=== PATIENT | female | born 1950 | race Caucasian/White ===

== ENCOUNTER 2020-08-04 10:33 | Outpatient (REF) | payer MEDICARE, OTHER, SELFPAY | END 2020-08-04 10:34 | disposition home or self-care (01) | LOC: HO.LAB 10:33 | PROVIDERS: PCP Internal Medicine; Visit Provider Internal Medicine | DX: Z20.828 Contact with and (suspected) exposure to other viral communicable diseases (principal) | CPT/HCPCS: C9803; U0003 ==

== ENCOUNTER → 2020-09-15 10:57 | Outpatient (BNVA) | payer MEDICARE, OTHER, SELFPAY | PROVIDERS: PCP Internal Medicine; Visit Provider Internal Medicine | DX: R07.2 Precordial pain (principal); I25.10 Atherosclerotic heart disease of native coronary artery without angina pectoris; I10 Essential (primary) hypertension; E78.5 Hyperlipidemia, unspecified | CPT/HCPCS: 93005; 99212 ==

== ENCOUNTER → 2020-10-17 08:17 | Outpatient (REF) | payer MEDICARE, OTHER, SELFPAY ==
--- NOTE | ~2020-10-17 | NM_ITS ---
Myocardial perfusion study Indication: The cardial chest pain to evaluate for myocardial ischemia Technique: The patient was brought in for a Lexiscan perfusion study on 10/17/2020. Patient performed low-level exercise and was injected 0.4 mg of Lexiscan intravenously. Within a minute of injection, 25 mCi of sestamibi was given intravenously. Images were obtained using the SPECT gamma camera interlaced with the gating device. Images were obtained in supine position. Resting perfusion study was performed on 10/20/2020. Patient was administered 25 mCi of sestamibi intravenously at rest. Images were then obtained in supine position. Images obtained with and without CT attenuation. Total DLP 60 mGy-cm. Images were processed with the software and compared side to side in short axis, horizontal long axis and vertical long axis views. Findings: Both stress and rest perfusion imaging, more so rest perfusion imaging a suboptimal due to intense subdiaphragmatic uptake in the bowel loop interfering with myocardial uptake. The stress perfusion study showed non attenuated images show mildly reduced uptake in the inferoapical wall of the LV myocardium as well as apex of the LV myocardium. Attenuation corrected images show minimal thinning in the distal anterior wall otherwise normal uptake in the entire myocardium.. The gated study shows normal LV systolic function with calculated LVEF of greater than 70 %. LV cavity is normal in size. The gated study shows normal systolic wall thickening and contraction of segments. Resting study shows non attenuated images show severely reduced uptake in the inferoapical and mildly reduced uptake in the rest of the inferior wall of the LV myocardium.. Gating at rest reveals normal systolic wall motion with ejection fraction at 62%. The findings are consistent with likely normal myocardial perfusion. NM/NM essence perf SPECT rest & str Impression: 1. Myocardial perfusion imaging study shows likely normal myocardial 2. Gated LVEF is 62% 3. Transient ischemic dilatation not present EKG is nondiagnostic for ischemia
--- NOTE | 2020-10-17 08:21 | CA_ITS ---
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 Mildly reduced LV systolic function with regional wall motion abnormality with grade 1 diastolic dysfunction 2. Normal cardiac valvular Doppler 3. Normal RV systolic pressure 4. No pericardial effusion Findings Left Ventricle Normal left ventricular cavity size. There is normal left ventricular wall thickness. The left ventricular systolic function is low normal. The visually estimated ejection fraction is between 50-55%. Spectral Doppler is indicative of an impaired relaxation filling pattern. E/E prime ratio is <8, consistent with normal filling pressures. Evidence suggests grade I (mild) diastolic dysfunction. Wall Motion Rest Echo Findings The mid inferior and mid inferoseptal segments are hypokinetic. The basal inferior, basal inferoseptal, and basal inferolateral segments are akinetic. All other scored wall segments showed normal motion. Right Ventricle Normal right ventricular cavity size and systolic function. Atria Both atria are normal in size. There is lipomatous hypertrophy of the interatrial septum. There is a mobile atrial septum noted. There is no evidence of interatrial shunt. Aortic Valve The aortic valve structure and function is likely normal. There is no aortic valve stenosis. There is no aortic valve regurgitation. Mitral Valve There is mild anterior and posterior mitral leaflet thickening. There is trace mitral valve regurgitation. There is no mitral valve stenosis. Pulmonic Valve The pulmonic valve was not well visualized. Tricuspid Valve Likely normal tricuspid valve structure and function. There is trace tricuspid valve regurgitation. The right ventricular systolic pressure is normal. The right ventricular systolic pressure is 16 mmHg. Normal right atrial pressure. There is no evidence of pulmonary hypertension. Great Vessels All visible segments of the aorta are normal in size. The pulmonary artery was not well visualized. Venous The inferior vena cava is normal in size and collapses greater than 50% with inspiration. Pericardium/Pleural There is no evidence of pericardial effusion. Prior Study Comparison Changes noted compared to prior study dated: 08/08/2019. LV systolic function is marginally reduce with new wall motion abnormality noted, not reported on prior study Measurements 2D Linear Measurements IVSd: 1.08 0.6-0.9/0.6-1.0 cm LVIDd: 4.10 3.9-5.3/4.2-5.9 cm LVIDd Index: 2.37 2.4-3.2/2.2-3.1 cm/m2 LVIDs: 2.99 2.0-3.6 cm LVPWd: 1.00 0.7-1.1 cm Ao Root: 3.10 2.1-3.5 cm LA Diam: 3.00 2.7-3.8/3.0-4.0 cm LAIDs Index: 1.73 1.5-2.3 cm/m2 LV Mass: 173.79 67-162/88-224 g LV Mass Index: 100.46 43-95/49-115 g/m2 LVOT Diam: 2.00 3.0+(-)1.3 cm 2D Volumes LA Vol: 16.20 2D Systolic Function EF 4C: 52.70 >55% EF 2C: 55.20 >55% EF BiP: 54.60 >55% Mitral Valve MV Pk E: 0.55 MV PK A: 0.96 MV Decel Time: 111.00 E/A: 0.60 E'Lateral: 8.49 E'Medial: 5.66 E/E' Med: 9.70 E/E' Lat: 6.50 PHT: 33.00 MVA PHT: 6.67 Decel Sargent: 4.94 Aortic Valve AoV Pk Vin: 1.31 AoV Mn Vin: 0.83 AoV VTI: 0.27 AoV Pk Grad: 7.00 Aov Mn Grad: 3.00 AMI Cont.VTI: 2.25 LVOT LVOT Pk Vin: 0.87 LVOT Mn Vin: 0.56 LVOT VTI: 0.20 LVOT Pk Grad: 3.00 LVOT Mn Grad: 1.00 LVOT Diam: 2.00 LVOT Area: 3.14 Diastolic Function MV Pk E: 0.55 MV Pk A: 0.96 E/A: 0.60 E'Medial: 5.66 E/E' Med: 9.70 E' Laterial: 8.49 E/E' Lat: 6.50 Tricuspid Valve TR Pk Vin: 1.79 TR Pk Grad: 13.00 RA Press: 3.00 RVSP: 16.00 Great Vessels Aorta Ao Root-2D: 3.10 2.0-3.7 cm Ao Asc: 2.90 2.1-3.4 cm Ao Arch: 2.40 Updated in Other Vendor System with Status of Final Javier Daniels MD electronically signed on 10/18/2020 1:48:01 PM with status of Final
--- NOTE | 2020-10-17 08:21 | CA_ITS ---
Acquisition Time: 2020-10-17 10:25:29 Total Exercise Time: 00:02:00 Test Indications: cp Medications: see chart Protocol: LEXISCAN Max HR: 150 BPM 100% of Pred: 150 BPM Max BP: 140/070 mmHG Max Work Load: 1.6 METS Pharmacological stress test using Lexiscan while walking on treadmill for 2 min at 1 mph. Pt became dizzy, SOB from Lexiscan. Sx reversed with Aminophyline 75 mg IV. Pt developed R hand tremmors that resolved in recovery period. EKG without any arrhythmias, non-diagnostic for ischemia. Nuclear images to follow. Normotensive response to test. Test reviewed with Dr. Oconnell Referred By: Ruddy Oconnell Overread By:
== END ==
LOC: HO.CARD 08:17
PROVIDERS: Visit Provider Internal Medicine
DX: R07.2 Precordial pain (principal); I25.119 Atherosclerotic heart disease of native coronary artery with unspecified angina pectoris
CPT/HCPCS: 78452; 93017; 93306; A9500; J0280; J2785

== ENCOUNTER → 2020-10-22 12:36 | Outpatient (BNVA) | payer MEDICARE, OTHER, SELFPAY | PROVIDERS: PCP Internal Medicine; Visit Provider Internal Medicine | DX: I25.10 Atherosclerotic heart disease of native coronary artery without angina pectoris (principal); I10 Essential (primary) hypertension; R07.2 Precordial pain; E78.5 Hyperlipidemia, unspecified | CPT/HCPCS: 99212 ==

== ENCOUNTER → 2021-01-22 11:00 | Outpatient (BNVA) | payer MEDICARE, OTHER, SELFPAY | PROVIDERS: PCP Internal Medicine; Visit Provider Internal Medicine | DX: I25.10 Atherosclerotic heart disease of native coronary artery without angina pectoris (principal); I10 Essential (primary) hypertension; E78.5 Hyperlipidemia, unspecified | CPT/HCPCS: 99212 ==

== ENCOUNTER 2021-03-17 10:58 | Outpatient (REF) | payer MEDICARE, OTHER, SELFPAY | END 2021-03-17 10:59 | disposition home or self-care (01) | LOC: HO.LAB 10:58 | PROVIDERS: PCP Internal Medicine; Visit Provider Internal Medicine | DX: Z20.822 Contact with and (suspected) exposure to COVID-19 (principal) | CPT/HCPCS: C9803; U0003; U0005 ==

== ENCOUNTER → 2021-07-30 10:27 | Outpatient (BNVA) | payer MEDICARE, OTHER, SELFPAY | PROVIDERS: PCP Internal Medicine; Visit Provider Internal Medicine | DX: I25.10 Atherosclerotic heart disease of native coronary artery without angina pectoris (principal); I10 Essential (primary) hypertension; E78.5 Hyperlipidemia, unspecified; G47.33 Obstructive sleep apnea (adult) (pediatric) | CPT/HCPCS: 99212 ==

== ENCOUNTER 2021-08-24 10:10 | Outpatient (REF) | payer MEDICARE, OTHER, SELFPAY | END 2021-08-24 10:11 | disposition home or self-care (01) | LOC: HO.WFDLDS 10:10 | PROVIDERS: Visit Provider Internal Medicine | DX: Z20.822 Contact with and (suspected) exposure to COVID-19 (principal) | CPT/HCPCS: C9803; U0003; U0005 ==

== ENCOUNTER 2021-09-22 11:27 | Outpatient (REF) | payer MEDICARE, OTHER, SELFPAY ==
--- NOTE | ~2021-09-22 | CT_ITS ---
EXAMINATION: CT LUMBAR SPINE WITHOUT CONTRAST CLINICAL INFORMATION: Status post spinal cord stimulator. COMPARISON: None. TECHNIQUE: 2 mm thin axial and reformatted 2 mm thin sagittal and coronal images of the lumbar spine were obtained. This CT examination was performed using dose optimization techniques as appropriate, variously including the following: *Automated exposure control *Adjustment of mA and/or kV according to patient size (this includes techniques or standardized protocols for targeted exams where dose is matched to indication/reason for exam; i.e. extremities or head) *Use of iterative reconstruction technique DLP; 390 mGy-cm FINDINGS: On sagittal reconstructed images, there is grade 1 retrolisthesis L2 over L3 and grade 1 anterolisthesis L3 over L4 and L4 over L5. Mild loss of disc at L4-L5 and moderate loss of disc height at L2-L3 disc levels with mild ventral spondylosis at the L1-L2 and L2-L3 disc levels. The vertebral heights is normal. There is mild dextroscoliosis mid/upper lumbar spine. At L1-L2 disc level, there is no evidence of disc bulge, herniation or spinal stenosis. At L2-L3 disc level, there is grade 1 retrolisthesis L2 over L3 with mild diffuse pseudo disc bulge but no spinal canal stenosis. The neural foramina are mildly narrowed bilaterally. At L3-L4 disc level, there is laminectomy with a capacious thecal sac. The neural foramina are patent. There is no spinal canal stenosis. At L4-L5 disc level there, there is listhesis with endplate sclerosis and minimal bulge but no spinal canal stenosis. There is moderate left neural foraminal narrowing. At L5-S1 disc level, there is no significant disc bulge, herniation or spinal canal stenosis. There is mild narrowing of the right neural foramina. The left neural foramina is patent. The paravertebral soft tissues are normal. There is moderate bilateral facet joint arthropathy L5-S1, L4-L5, L3-L4 and L2-L3 disc levels. CT/CT lumbar spine wo con IMPRESSION: Dextroscoliosis lumbar spine with listhesis as described above. There is L3-L4 laminectomy with a capacious thecal sac. There are endplate changes with diffuse bulge L4-L5 disc level without spinal canal stenosis. Significant bilateral facet joint arthropathy and hypertrophy is seen at L2-L3 through L5-S1 disc levels. There is no spinal canal stenosis.
--- NOTE | ~2021-09-22 | US_ITS ---
EXAMINATION: US EXTRACRANIAL CAROTID DUPLEX, BILATERAL CLINICAL INFORMATION: Atherosclerotic cardiovascular disease. Hypertension. Hyperlipidemia. COMPARISON: None TECHNIQUE: Real-time ultrasound and Doppler techniques (integrating B-mode 2-D vascular images, Doppler spectral analysis and color-flow Doppler imaging) were utilized to interrogate the extracranial carotid arteries, the vertebral arteries and proximal subclavian arteries bilaterally. The degree of stenosis is determined by criteria similar to NASCET. FINDINGS: Right Side: 1. There is no visualized atherosclerotic plaque seen in the bifurcation/proximal ICA region. 2. The common carotid artery PSV proximally is 108 cm/s and distally 96 cm/s. 3. The proximal internal carotid artery velocities are 80 cm/s systolic and 14 cm/s diastolic. 4. The proximal external carotid artery PSV is 90 cm/s. 5. The vertebral artery shows antegrade flow. 6. The subclavian artery waveforms are normal. Left Side: 1. There is no visualized atherosclerotic plaque seen in the bifurcation/proximal ICA region. 2. The common carotid artery PSV proximally is 92 cm/s and distally 77 cm/s. 3. The proximal internal carotid artery velocities are 80 cm/s systolic and 27 cm/s diastolic. 4. The proximal external carotid artery PSV is 84 cm/s. 5. The vertebral artery shows antegrade flow. 6. The subclavian artery waveforms are normal. There is elevation of the mid internal carotid artery peak systolic velocity however no plaque or true turbulence is identified in this appears be related to tortuosity. US/US carotid duplex BI IMPRESSION: 1. RIGHT: Normal right internal carotid artery without atherosclerotic plaque or hemodynamically significant stenosis. 2. LEFT: Minimal, non-hemodynamically significant stenosis of the proximal left internal carotid artery corresponding to a 0-49% stenosis by velocity criteria.
== END 2021-09-22 11:28 | disposition home or self-care (01) ==
LOC: HO.US 11:27
PROVIDERS: Visit Provider Internal Medicine
DX: I65.23 Occlusion and stenosis of bilateral carotid arteries (principal); Z96.82 Presence of neurostimulator
CPT/HCPCS: 72131; 93880

== ENCOUNTER → 2022-02-01 09:59 | Outpatient (BNVA) | payer MEDICARE, OTHER, SELFPAY ==
--- NOTE | 2022-04-05 13:09 | P.CONTMS_ITS ---
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 Substance History: cocaine 40 yrs ago past smoker Meds/Allergies Meds Home Medications Medication Instructions Recorded Confirmed Type aspirin 81 mg tablet,delayed 81 mg PO DAILY 09/15/20 02/01/22 History release cholecalciferol (vitamin D3) 50 50 mcg PO DAILY 09/15/20 02/01/22 History mcg (2,000 unit) capsule mirtazapine 15 mg tablet 15 mg PO BEDTIME 09/15/20 02/01/22 History multivitamin 1 tab PO DAILY 09/15/20 02/01/22 History nitroglycerin 0.4 mg sublingual 0.4 mg sublingual Q5M PRN 09/15/20 02/01/22 History tablet omeprazole 40 mg capsule,delayed 40 mg PO DAILY 09/15/20 02/01/22 History release oxycodone-acetaminophen 5 mg-325 1 tab PO QID PRN 09/15/20 02/01/22 History mg tablet peppermint oil 50 mg mg PO 09/15/20 02/01/22 History capsule,delayed release alprazolam 0.25 mg tablet 0.125 mg PO DAILY PRN 10/22/20 02/01/22 History lisinopril 10 mg tablet 10 mg PO DAILY 01/22/21 02/01/22 History omeprazole 40 mg capsule,delayed 40 mg PO DAILY 07/30/21 02/01/22 History release Allergies Allergies Allergy/AdvReac Type Severity Reaction Status Date / Time No Known Allergies Allergy Verified 02/01/22 10:02 [No Known Allergies*] Assessment & Plan Assessment & Plan (1) Depression, major, severe recurrence: Status: Acute Code(s): F33.2 - Major depressive disorder, recurrent severe without psychotic features Plan The patient is a 72-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 Jenni rwals and multiple combinations of antidepressant trials The patients current quality of life is minimal her PHQ-9 is 23 I spent minutes with the patient and/or on the patient floor today, greater than?50% of which was spent counseling/coordinating care.
== END ==
PROVIDERS: PCP Internal Medicine; Visit Provider Internal Medicine
DX: I25.10 Atherosclerotic heart disease of native coronary artery without angina pectoris (principal); I10 Essential (primary) hypertension; E78.5 Hyperlipidemia, unspecified; G47.33 Obstructive sleep apnea (adult) (pediatric); Z79.82 Long term (current) use of aspirin; Z79.899 Other long term (current) drug therapy
CPT/HCPCS: 93005; 99212

== ENCOUNTER 2022-06-04 10:15 | Outpatient (REF) | payer MEDICARE, OTHER, SELFPAY ==
--- NOTE | ~2022-06-04 | XR_ITS ---
EXAMINATION: XR HIP, RIGHT CLINICAL INFORMATION: Joint pain COMPARISON: None TECHNIQUE: Two views of the right hip. FINDINGS: The right hip joint space is maintained normal. No bony erosive changes, loose body seen. There is a small calcification along the greater trochanter likely calcific bursitis. No aggressive lytic or sclerotic process seen. No visible acute fracture, dislocation or subluxation seen. XR/XR hip RT min 2V IMPRESSION: No acute fracture or dislocation. Calcific bursitis right hip.
== END 2022-06-04 10:16 | disposition home or self-care (01) ==
LOC: HO.XRAY 10:15
PROVIDERS: Visit Provider Internal Medicine
DX: M25.551 Pain in right hip (principal); M53.3 Sacrococcygeal disorders, not elsewhere classified
CPT/HCPCS: 73502

== ENCOUNTER 2022-06-25 10:00 | Outpatient (RCR) | payer MEDICARE, OTHER, SELFPAY ==
--- NOTE | 2022-04-30 14:02 | W.PM.TMSCONS ---
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 Meds/Allergies Meds Home Medications Medication Instructions Recorded Confirmed Type aspirin 81 mg tablet,delayed 81 mg PO DAILY 09/15/20 02/01/22 History release cholecalciferol (vitamin D3) 50 50 mcg PO DAILY 09/15/20 02/01/22 History mcg (2,000 unit) capsule mirtazapine 15 mg tablet 15 mg PO BEDTIME 09/15/20 02/01/22 History multivitamin 1 tab PO DAILY 09/15/20 02/01/22 History nitroglycerin 0.4 mg sublingual 0.4 mg sublingual Q5M PRN 09/15/20 02/01/22 History tablet omeprazole 40 mg capsule,delayed 40 mg PO DAILY 09/15/20 02/01/22 History release oxycodone-acetaminophen 5 mg-325 1 tab PO QID PRN 09/15/20 02/01/22 History mg tablet peppermint oil 50 mg mg PO 09/15/20 02/01/22 History capsule,delayed release alprazolam 0.25 mg tablet 0.125 mg PO DAILY PRN 10/22/20 02/01/22 History lisinopril 10 mg tablet 10 mg PO DAILY 01/22/21 02/01/22 History omeprazole 40 mg capsule,delayed 40 mg PO DAILY 07/30/21 02/01/22 History release Allergies Allergies Allergy/AdvReac Type Severity Reaction Status Date / Time No Known Allergies Allergy Verified 02/01/22 10:02 [No Known Allergies*] Assessment & Plan I spent minutes with the patient and/or on the patient floor today, greater than?50% of which was spent counseling/coordinating care.
--- NOTE | 2022-05-05 23:47 | HO.TMSDAILY2 ---
TMS Daily Progress Note Daily TMS Progress Note Date of Service: 05/07/22 Week #: 1 Treatment #(09-20): 2 PHQ-9 Pre-Treatment (09-17): 21 PHQ-9 Most Recent (09-17): 21 Reviewed: TMS Tech Note Reviewed Verification: I have reviewed the TMS General Store Manager Note and agree with the contents. The patient remains a candidate to continue TMS treatment per protocol. Assessment and Plan (1) Depression, major, severe recurrence: Status: Acute Plan Patient aware that there is some wrist his spinal stimulator she has been able to turn it off at the beginning of treatment and turned on after treatment over. She is willing to take risk and technicians at the company did state that spinal stimulator has been used with TMS in this manner but they cannot in [place] nor say anything further. Patient is willing to take the risk and mapping was successfully completed TMS treatment 1
--- NOTE | 2022-05-07 12:02 | HO.TMSDAILY2 ---
TMS Daily Progress Note Daily TMS Progress Note Date of Service: 05/06/22 Week #: 1 Treatment #(09-20): 4 PHQ-9 Pre-Treatment (09-17): 21 PHQ-9 Most Recent (09-17): 21 Reviewed: TMS Tech Note Reviewed Verification: I have reviewed the TMS Commissions Specialist Note and agree with the contents. The patient remains a candidate to continue TMS treatment per protocol. Assessment and Plan (1) Depression, major, severe recurrence: Status: Acute Plan pt tolerating tx cont plan
--- NOTE | 2022-05-07 16:52 | HO.TMSDAILY2 ---
TMS Daily Progress Note Daily TMS Progress Note Date of Service: 05/07/22 Week #: 1 Treatment #(09-20): 4 PHQ-9 Pre-Treatment (09-17): 21 PHQ-9 Most Recent (09-17): 21 Reviewed: TMS Tech Note Reviewed Verification: I have reviewed the TMS Gridcap Machine Operator Note and agree with the contents. The patient remains a candidate to continue TMS treatment per protocol. Assessment and Plan (1) Depression, major, severe recurrence: Status: Acute Plan continue TMS
--- NOTE | 2022-05-10 17:41 | HO.TMSDAILY2 ---
TMS Daily Progress Note Daily TMS Progress Note Date of Service: 05/10/22 Week #: 2 Treatment #(09-20): 6 PHQ-9 Pre-Treatment (09-17): 26 PHQ-9 Most Recent (09-17): 24 Reviewed: TMS Tech Note Reviewed Verification: I have reviewed the TMS Railroad Brake Repairer Note and agree with the contents. The patient remains a candidate to continue TMS treatment per protocol. Assessment and Plan (1) Depression, major, severe recurrence: Status: Acute Plan pt seen change in settings tolerated no tremor or motor stimulation
--- NOTE | 2022-05-11 21:56 | P.PNPS_ITS ---
TMS Daily Progress Note Daily TMS Progress Note Date of Service: 05/11/22 Week #: 2 Treatment #(09-20): 7 PHQ-9 Pre-Treatment (09-17): 26 PHQ-9 Most Recent (09-17): 24 Reviewed: TMS Tech Note Reviewed Verification: I have reviewed the TMS Mending Carrier Note and agree with the contents. The patient remains a candidate to continue TMS treatment per protocol.
--- NOTE | 2022-05-12 22:01 | P.PNPS_ITS ---
TMS Daily Progress Note Daily TMS Progress Note Date of Service: 05/12/22 Week #: 2 Treatment #(09-20): 8 PHQ-9 Pre-Treatment (09-17): 26 PHQ-9 Most Recent (09-17): 24 Reviewed: TMS Tech Note Reviewed Verification: I have reviewed the TMS Network Operations Specialist Note and agree with the contents. The patient remains a candidate to continue TMS treatment per protocol.tolerating tx spinal stimulator has not been problematic
--- NOTE | 2022-05-13 21:58 | P.PNPS_ITS ---
TMS Daily Progress Note Daily TMS Progress Note Date of Service: 05/13/22 Week #: 2 Treatment #(09-20): 9 PHQ-9 Pre-Treatment (09-17): 26 PHQ-9 Most Recent (09-17): 24 Reviewed: TMS Tech Note Reviewed Verification: I have reviewed the TMS Technical Services Librarian Note and agree with the contents. The patient remains a candidate to continue TMS treatment per protocol. Patient tolerating treatment well no problems with spinal stimulator
--- NOTE | 2022-05-14 11:56 | P.CONTMS_ITS ---
History of Present Illness General Data Date of Service: 04/22/2022 Reason for consult: Evaluation for treatment resistant depression TMS Requesting provider: Jorje La History of Present Illness The patient is a 72-year-old female . Patient has had some benefit from ongoing therapy with Dr. Jenni rawls with a history of recurrent depression, irritability chronic anxiety that has been treatment resistant. The patient has failed multiple trials including Seroquel Depakote Wellbutrin sertraline, Rexulti mirtazapine either with inadequate response or periods of increased anxiety. Her episode of depression has now lasted a number of years. Other factors include chronic pain from diffuse spinal problems and the patient does have a spinal stimulator. 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 Patient has had some degree of chronic interpersonal discord and reactivity chronic self-esteem issues Substance History: None Trauma History: neg Meds/Allergies Meds Home Medications Medication Instructions Recorded Confirmed Type aspirin 81 mg tablet,delayed 81 mg PO DAILY 09/15/20 02/01/22 History release cholecalciferol (vitamin D3) 50 50 mcg PO DAILY 09/15/20 02/01/22 History mcg (2,000 unit) capsule mirtazapine 15 mg tablet 15 mg PO BEDTIME 09/15/20 02/01/22 History multivitamin 1 tab PO DAILY 09/15/20 02/01/22 History nitroglycerin 0.4 mg sublingual 0.4 mg sublingual Q5M PRN 09/15/20 02/01/22 History tablet omeprazole 40 mg capsule,delayed 40 mg PO DAILY 09/15/20 02/01/22 History release oxycodone-acetaminophen 5 mg-325 1 tab PO QID PRN 09/15/20 02/01/22 History mg tablet peppermint oil 50 mg mg PO 09/15/20 02/01/22 History capsule,delayed release alprazolam 0.25 mg tablet 0.125 mg PO DAILY PRN 10/22/20 02/01/22 History lisinopril 10 mg tablet 10 mg PO DAILY 01/22/21 02/01/22 History omeprazole 40 mg capsule,delayed 40 mg PO DAILY 07/30/21 02/01/22 History release Narrative: Past history of agitation on sertraline Allergies Allergies Allergy/AdvReac Type Severity Reaction Status Date / Time No Known Allergies Allergy Verified 02/01/22 10:02 [No Known Allergies*] Mental Status Exam Mental Status Exam Narrative: Mental Status Exam Narrative: Appearance: Casually dressed cooperative Behavior: Appropriate psychomotor: Speech: Clear goal-directed Thought proccess logical Thought content: Hopelessness helplessness periods of despondency ruminating Mood: Depressed Affect: Constricted appropriate SI:denies active SI. It is where she feels she might be better off HI:denies VH/AH:none Delusions: None Insight/judgment: Patient is asking for help she is able to take in information regarding TMS and her rare of potential risks benefits Memory/cog: Assessment & Plan Assessment & Plan (1) Depression, major, severe recurrence: Status: Acute Code(s): F33.2 - Major depressive disorder, recurrent severe without psychotic features Plan Patient has a history of recurrent depression minimal quality of life recurrent depressed mood irritability despair. She has not responded to multiple medication trials. Calls placed to manage fracture of spinal stimulator spoke with 10 department who states that the stimulator can be used in MRI the stimulator can be turned off during treatment and has been used with other TMS patients. Patient and are aware there is no guarantee that the device will not be affected but they feel any potential risk is worth it and in the literature this has been done without difficulty noted. Patient was able to do an impedance check and also is able to turn off the device prior to each treatment patient and are in agreement and understanding there is no guarantee how the spinal stimulator may react but the potential risk which should be medicated by turning off the stimulator and being approved abuse an MRI is worth the potential benefit given the patient's limited quality of life There are no other medical devices or issues that would preclude doing TMS. No history brain surgery implanted cochlear device pacemaker metallic fragments or other contraindication I spent ___60___ minutes with the patient and/or on the patient floor today, greater than?50% of which was spent counseling/coordinating care. Patient educated on: diagnosis, TMS, therapeutic strategies and other Informed Consent: understands
--- NOTE | 2022-05-17 22:35 | HO.TMSDAILY2 ---
TMS Daily Progress Note Daily TMS Progress Note Date of Service: 05/17/22 Week #: 3 Treatment #(09-20): 11 PHQ-9 Pre-Treatment (09-17): 26 PHQ-9 Most Recent (09-17): 24 Reviewed: TMS Tech Note Reviewed Verification: I have reviewed the TMS Microcomputer Support Specialist Note and agree with the contents. The patient remains a candidate to continue TMS treatment per protocol.
--- NOTE | 2022-05-21 23:36 | HO.TMSDAILY2 ---
TMS Daily Progress Note Daily TMS Progress Note Date of Service: 05/19/22 Week #: 3 Treatment #(09-20): 13 PHQ-9 Pre-Treatment (09-17): 26 PHQ-9 Most Recent (09-17): 24 Reviewed: TMS Tech Note Reviewed Verification: I have reviewed the TMS Dairy Quality Assurance Officer Note and agree with the contents. The patient remains a candidate to continue TMS treatment per protocol.
--- NOTE | 2022-05-21 23:41 | P.PNPS_ITS ---
TMS Daily Progress Note Daily TMS Progress Note Date of Service: 05/20/22 Week #: 3 Treatment #(09-20): 14 PHQ-9 Pre-Treatment (09-17): 26 PHQ-9 Most Recent (09-17): 24 Reviewed: TMS Tech Note Reviewed Verification: I have reviewed the TMS Founder And Ceo Note and agree with the contents. The patient remains a candidate to continue TMS treatment per protocol.
--- NOTE | 2022-05-24 23:34 | HO.TMSDAILY2 ---
TMS Daily Progress Note Daily TMS Progress Note Date of Service: 05/24/22 Week #: 3 Treatment #(09-20): 12 PHQ-9 Pre-Treatment (09-17): 26 PHQ-9 Most Recent (09-17): 24 Reviewed: TMS Tech Note Reviewed Verification: I have reviewed the TMS Gun Numberer Note and agree with the contents. The patient remains a candidate to continue TMS treatment per protocol.
--- NOTE | 2022-05-24 23:37 | HO.TMSDAILY2 ---
TMS Daily Progress Note Daily TMS Progress Note Date of Service: 05/18/22 Week #: 3 Treatment #(09-20): 12 PHQ-9 Pre-Treatment (09-17): 26 PHQ-9 Most Recent (09-17): 24 Reviewed: TMS Tech Note Reviewed Verification: I have reviewed the TMS Assistant Technician Note and agree with the contents. The patient remains a candidate to continue TMS treatment per protocol.
--- NOTE | 2022-05-24 23:39 | HO.TMSDAILY2 ---
TMS Daily Progress Note Daily TMS Progress Note Date of Service: 05/18/22 Week #: 3 Treatment #(09-20): 13 PHQ-9 Pre-Treatment (09-17): 26 PHQ-9 Most Recent (09-17): 24 Reviewed: TMS Tech Note Reviewed Verification: I have reviewed the TMS Senior Genetic Counselor Note and agree with the contents. The patient remains a candidate to continue TMS treatment per protocol.
--- NOTE | 2022-05-24 23:40 | P.PNPS_ITS ---
TMS Daily Progress Note Daily TMS Progress Note Date of Service: 05/19/22 Week #: 3 Treatment #(09-20): 14 PHQ-9 Pre-Treatment (09-17): 26 PHQ-9 Most Recent (09-17): 24 Reviewed: TMS Tech Note Reviewed Verification: I have reviewed the TMS Vice President Of Contracts Note and agree with the contents. The patient remains a candidate to continue TMS treatment per protocol.
--- NOTE | 2022-05-24 23:43 | HO.TMSDAILY2 ---
TMS Daily Progress Note Daily TMS Progress Note Date of Service: 05/24/22 Week #: 4 Treatment #(09-20): 16 PHQ-9 Pre-Treatment (09-17): 26 PHQ-9 Most Recent (09-17): 24 Reviewed: TMS Tech Note Reviewed Verification: I have reviewed the TMS Weather Analyst Note and agree with the contents. The patient remains a candidate to continue TMS treatment per protocol.
--- NOTE | 2022-05-25 18:15 | HO.TMSDAILY2 ---
TMS Daily Progress Note Daily TMS Progress Note Date of Service: 05/25/22 Week #: 4 Treatment #(09-20): 17 PHQ-9 Pre-Treatment (09-17): 26 PHQ-9 Most Recent (09-17): 24 Reviewed: TMS Tech Note Reviewed Verification: I have reviewed the TMS Observer Electrical Prospecting Note and agree with the contents. The patient remains a candidate to continue TMS treatment per protocol. Assessment and Plan (1) Depression, major, severe recurrence: Status: Acute (2) JACOB (obstructive sleep apnea): Status: Acute Plan pt seen discussed cbt for insomnia handouts given
--- NOTE | 2022-06-07 16:24 | P.PNPS_ITS ---
TMS Daily Progress Note Daily TMS Progress Note Date of Service: 05/26/22 Week #: 4 Treatment #(09-20): 18 PHQ-9 Pre-Treatment (09-17): 26 PHQ-9 Most Recent (09-17): 17 Reviewed: TMS Tech Note Reviewed Verification: I have reviewed the TMS Chief Enterprise Architect Note and agree with the contents. The patient remains a candidate to continue TMS treatment per protocol.
--- NOTE | 2022-06-07 16:26 | P.PNPS_ITS ---
TMS Daily Progress Note Daily TMS Progress Note Date of Service: 05/28/22 Week #: 4 Treatment #(09-20): 20 PHQ-9 Pre-Treatment (09-17): 26 PHQ-9 Most Recent (09-17): 17 Reviewed: TMS Tech Note Reviewed Verification: I have reviewed the TMS Panel Builder Note and agree with the contents. The patient remains a candidate to continue TMS treatment per protocol.
--- NOTE | 2022-06-07 16:26 | P.PNPS_ITS ---
TMS Daily Progress Note Daily TMS Progress Note Date of Service: 05/27/22 Week #: 4 Treatment #(09-20): 19 PHQ-9 Pre-Treatment (09-17): 26 PHQ-9 Most Recent (09-17): 17 Reviewed: TMS Tech Note Reviewed Verification: I have reviewed the TMS Locomotive Observer Note and agree with the contents. The patient remains a candidate to continue TMS treatment per protocol.
--- NOTE | 2022-06-07 16:27 | P.PNPS_ITS ---
TMS Daily Progress Note Daily TMS Progress Note Date of Service: 06/01/22 Week #: 5 Treatment #(09-20): 21 PHQ-9 Pre-Treatment (09-17): 26 PHQ-9 Most Recent (09-17): 12 Reviewed: TMS Tech Note Reviewed Verification: I have reviewed the TMS Corrections Sergeant Note and agree with the contents. The patient remains a candidate to continue TMS treatment per protocol.
--- NOTE | 2022-06-07 16:28 | P.PNPS_ITS ---
TMS Daily Progress Note Daily TMS Progress Note Date of Service: 06/03/22 Week #: 5 Treatment #(09-20): 23 PHQ-9 Pre-Treatment (09-17): 26 PHQ-9 Most Recent (09-17): 12 Reviewed: TMS Tech Note Reviewed Verification: I have reviewed the TMS Licensed Dispensing Optician Note and agree with the contents. The patient remains a candidate to continue TMS treatment per protocol.
--- NOTE | 2022-06-07 16:28 | P.PNPS_ITS ---
TMS Daily Progress Note Daily TMS Progress Note Date of Service: 06/02/22 Week #: 5 Treatment #(09-20): 22 PHQ-9 Pre-Treatment (09-17): 26 PHQ-9 Most Recent (09-17): 12 Reviewed: TMS Tech Note Reviewed Verification: I have reviewed the TMS Global Consumer Sector Vice President Note and agree with the contents. The patient remains a candidate to continue TMS treatment per protocol.
--- NOTE | 2022-06-07 22:16 | P.PNPS_ITS ---
TMS Daily Progress Note Daily TMS Progress Note Date of Service: 06/07/22 Week #: 5 Treatment #(09-20): 25 PHQ-9 Pre-Treatment (09-17): 26 PHQ-9 Most Recent (09-17): 12 Reviewed: TMS Tech Note Reviewed Verification: I have reviewed the TMS Electro Mechanical Assembler Note and agree with the contents. The patient remains a candidate to continue TMS treatment per protocol.
--- NOTE | 2022-06-08 14:35 | P.PNPS_ITS ---
TMS Daily Progress Note Daily TMS Progress Note Date of Service: 06/08/22 Week #: 6 Treatment #(09-20): 26 PHQ-9 Pre-Treatment (09-17): 26 PHQ-9 Most Recent (09-17): 12 Reviewed: TMS Tech Note Reviewed Verification: I have reviewed the TMS Animal Pathologist Note and agree with the contents. The patient remains a candidate to continue TMS treatment per protocol.
--- NOTE | 2022-06-11 22:01 | P.PNPS_ITS ---
TMS Daily Progress Note Daily TMS Progress Note Date of Service: 06/09/22 Week #: 6 Treatment #(09-20): 27 PHQ-9 Pre-Treatment (09-17): 26 PHQ-9 Most Recent (09-17): 12 Reviewed: TMS Tech Note Reviewed Verification: I have reviewed the TMS Hand Shaker Note and agree with the contents. The patient remains a candidate to continue TMS treatment per protocol.
--- NOTE | 2022-06-11 22:02 | P.PNPS_ITS ---
TMS Daily Progress Note Daily TMS Progress Note Date of Service: 06/10/22 Week #: 6 Treatment #(09-20): 28 PHQ-9 Pre-Treatment (09-17): 26 PHQ-9 Most Recent (09-17): 12 Reviewed: TMS Tech Note Reviewed Verification: I have reviewed the TMS Jukebox Checker Note and agree with the contents. The patient remains a candidate to continue TMS treatment per protocol.
--- NOTE | 2022-06-11 22:03 | P.PNPS_ITS ---
TMS Daily Progress Note Daily TMS Progress Note Date of Service: 06/11/22 Week #: 6 Treatment #(09-20): 29 PHQ-9 Pre-Treatment (09-17): 26 PHQ-9 Most Recent (09-17): 12 Reviewed: TMS Tech Note Reviewed Verification: I have reviewed the TMS Trampoline Team Coach Note and agree with the contents. The patient remains a candidate to continue TMS treatment per protocol.
--- NOTE | 2022-06-14 22:04 | HO.TMSDAILY2 ---
TMS Daily Progress Note Daily TMS Progress Note Date of Service: 06/14/22 Week #: 6 Treatment #(09-20): 30 PHQ-9 Pre-Treatment (09-17): 26 PHQ-9 Most Recent (09-17): 12 Reviewed: TMS Tech Note Reviewed Verification: I have reviewed the TMS Account Associate Note and agree with the contents. The patient remains a candidate to continue TMS treatment per protocol.
--- NOTE | 2022-06-25 16:59 | HO.TMSDAILY2 ---
TMS Daily Progress Note Daily TMS Progress Note Date of Service: 05/17/22 Week #: 7 Treatment #(09-20): 31 PHQ-9 Pre-Treatment (09-17): 26 PHQ-9 Most Recent (09-17): 12 Reviewed: TMS Tech Note Reviewed Verification: I have reviewed the TMS Rougher Merchant Mill Note and agree with the contents. The patient remains a candidate to continue TMS treatment per protocol. Patient continues to do quite well with TMS Assessment and Plan (1) Depression, major, severe recurrence: Status: Acute Plan Continue treatment plan has been doing quite well with ongoing treatment
--- NOTE | 2022-06-25 17:02 | P.PNPS_ITS ---
TMS Daily Progress Note Daily TMS Progress Note Date of Service: 06/18/22 Week #: 7 Treatment #(09-20): 32 PHQ-9 Pre-Treatment (09-17): 26 PHQ-9 Most Recent (09-17): 12 CGI-I Most Recent: 2 = Much Improved Reviewed: TMS Tech Note Reviewed Verification: I have reviewed the TMS Insurance Consultant Note and agree with the contents. The patient remains a candidate to continue TMS treatment per protocol.
--- NOTE | 2022-06-25 17:04 | HO.TMSDAILY2 ---
TMS Daily Progress Note Daily TMS Progress Note Date of Service: 06/21/22 Week #: 7 Treatment #(09-20): 33 PHQ-9 Pre-Treatment (09-17): 26 PHQ-9 Most Recent (09-17): 12 CGI-I Most Recent: 2 = Much Improved Reviewed: TMS Tech Note Reviewed Verification: I have reviewed the TMS Smoked Meat Preparer Note and agree with the contents. The patient remains a candidate to continue TMS treatment per protocol. All continues to to show good spirits no complaints of side effects Assessment and Plan (1) Depression, major, severe recurrence: Status: Acute
--- NOTE | 2022-06-25 17:06 | P.PNPS_ITS ---
TMS Daily Progress Note Daily TMS Progress Note Date of Service: 06/23/22 Week #: 8 Treatment #(09-20): 34 PHQ-9 Pre-Treatment (09-17): 26 PHQ-9 Most Recent (09-17): 12 CGI-I Most Recent: 2 = Much Improved Reviewed: TMS Tech Note Reviewed Verification: I have reviewed the TMS Family Service Worker Note and agree with the contents. The patient remains a candidate to continue TMS treatment per protocol.
--- NOTE | 2022-06-25 17:08 | P.PNPS_ITS ---
TMS Daily Progress Note Daily TMS Progress Note Date of Service: 06/25/22 Week #: 8 Treatment #(09-20): 35 PHQ-9 Pre-Treatment (09-17): 26 PHQ-9 Most Recent (09-17): 12 CGI-I Most Recent: 2 = Much Improved Reviewed: TMS Tech Note Reviewed Verification: I have reviewed the TMS Relay Shop Tester Note and agree with the contents. The patient remains a candidate to continue TMS treatment per protocol. Assessment and Plan (1) Depression, major, severe recurrence: Status: Acute Plan Patient has shown good response
--- NOTE | 2022-06-28 17:09 | HO.TMSDAILY2 ---
TMS Daily Progress Note Daily TMS Progress Note Date of Service: 06/28/22 Week #: 8 Treatment #(09-20): 36 PHQ-9 Pre-Treatment (09-17): 26 PHQ-9 Most Recent (09-17): 12 CGI-I Most Recent: 2 = Much Improved Reviewed: TMS Tech Note Reviewed Verification: I have reviewed the TMS Estimation Manager Note and agree with the contents. The patient remains a candidate to continue TMS treatment per protocol. Assessment and Plan (1) Depression, major, severe recurrence: Status: Acute Plan Patient has completed course of treatment has done significantly well would benefit from read treatment down the road if needed Patient seen on exit with
--- NOTE | 2022-06-28 17:11 | HO.TMSDCTER ---
TMS Discharge-Termination Chart Review Treatments Completed: 36 Initial MT%: 80% Final MT%: 120% Was Remapping Required: Yes Clinical Evaluation/Review PHQ-9 Pre-Treatment (1-): 26 PHQ-9 Post-Treatment (-): 11 LUCIEN-7 Pre-Treatment (0-21): 21 LUCIEN-7 Most Recent (0-21): 5 CGI-I Initial: 0 = Not Assessed CGI-I Post Treatment: 2 = Much Improved Q-LES-Q-SF Pre-Treatment: 35 Q-LES-Q-SF Post-Treatment: 51 Adverse Effects Local Pain/Discomfort: Yes Headache: No Facial Pain: No Seizure: No Other: Rare right finger twitch remain happening and moved more frontal with good effect Impression Impression: The patient has shown a significant improvement in mood and quality of life tolerated TMS well has shown significant improvement over medication treatment times a number of years Recommendations TMS: Maintenance (Consider as needed) Medication Changes: none Follow-up w/ Prescriber: Follow-up with Dr. La Assessment and Plan (1) Depression, major, severe recurrence: Status: Acute Plan Read treatment as indicated consider possible maintenance
== END 2022-08-21 23:59 | disposition home or self-care (01) ==
LOC: HO.PTMS 10:00
PROVIDERS: Visit Provider Psychiatry & Neurology Psychiatry
DX: F33.2 Major depressive disorder, recurrent severe without psychotic features (principal)
CPT/HCPCS: 90867; 90868; 99214

== ENCOUNTER → 2022-08-05 16:47 | Outpatient (BNVA) | payer MEDICARE, OTHER, SELFPAY | PROVIDERS: PCP Internal Medicine; Visit Provider Psychiatry & Neurology Psychiatry | DX: F33.41 Major depressive disorder, recurrent, in partial remission (principal); G47.33 Obstructive sleep apnea (adult) (pediatric); I10 Essential (primary) hypertension; E78.49 Other hyperlipidemia; Z98.890 Other specified postprocedural states; Z96.82 Presence of neurostimulator | CPT/HCPCS: 90833; 99212 ==

== ENCOUNTER → 2022-08-09 09:58 | Outpatient (BNVA) | payer MEDICARE, OTHER, SELFPAY | PROVIDERS: PCP Internal Medicine; Visit Provider Internal Medicine | DX: I25.10 Atherosclerotic heart disease of native coronary artery without angina pectoris (principal); I10 Essential (primary) hypertension; E78.5 Hyperlipidemia, unspecified; G47.33 Obstructive sleep apnea (adult) (pediatric) | CPT/HCPCS: 99212 ==

== ENCOUNTER → 2022-08-17 09:10 | Outpatient (BNVA) | payer MEDICARE, OTHER, SELFPAY | PROVIDERS: PCP Internal Medicine; Visit Provider Internal Medicine | DX: Z13.89 Encounter for screening for other disorder (principal) ==

== ENCOUNTER → 2022-09-13 10:15 | Outpatient (BNVA) | payer MEDICARE, OTHER, SELFPAY ==
--- NOTE | 2022-12-14 12:01 | P.PNPSO_ITS ---
Subjective Subjective Date of Service: 12/14/22 Reason For Visit: depression Interim History: Patient has had some periods of anxiety irritability but generally improve she states on mirtazapine 45 mg. Patient seen with her spinal stimulator unfortunately not particularly helpful does deal with chronic pain takes intermittent b.i.d generally oxycodone patient with some degree of chronic shortness breath amotivation intermittently feels triggered by family issues. Generally she and her are relatively stable compared to past. Uses very low-dose gabapentin has been concern to go above 100 mg because my interaction with oxycodone Medication Compliance: Yes Mental Status Exam Mental Status Exam Patient Appearance: Well Grooomed Patient Orientation: Person, Place, Time and Situation Level of Consciousness: Awake and Appropriate Patient Behavior: Appropriate Mood Description: Depressed, Blunted and Apprehensive Affect Description: Constricted and Apprehensive Patient Cognition Impaired: No Ability to Follow Directions: Good Speech Pattern: Clear Memory Description: Intact Hallucinations: None Delusions: Not Present Thought Process: Intact and Goal Oriented Thought Content: positive for Goal Oriented, positive for Preoccupation, negati ve for Suicidal Ideation or negative for Homicidal Ideation Depressive Symptoms: Increased Anxiety, Increased Irritability, Hopelessness, Increased Fatigue, Loss of Energy and Difficulty Concentrating Discharge Plan Discharge Attending physician on admission: Jorje La Primary Care Provider: Elizabeth Moore Referrals: Elizabeth Moore MD [Primary Care Provider] - 1 Week Discharge Medications: No Action atorvastatin 80 mg tablet 80 mg PO DAILY Qty: 90 3RF ezetimibe [Zetia] 10 mg tablet 10 mg PO DAILY Qty: 30 3RF Rx Instructions: Repeat labs 01/16/23 mirtazapine 45 mg tablet 45 mg PO BEDTIME Qty: 30 3RF omeprazole 40 mg capsule,delayed release(DR/EC) 40 mg PO DAILY aspirin 81 mg tablet,delayed release (DR/EC) 81 mg PO DAILY cholecalciferol (vitamin D3) 50 mcg (2,000 unit) capsule 50 mcg PO DAILY multivitamin Tablet 1 tab PO DAILY nitroglycerin 0.4 mg tablet, sublingual 0.4 mg sublingual Q5M PRN Rx Instructions: do not exceed 3 doses per episode oxycodone-acetaminophen 5-325 mg tablet 1 tab PO QID PRN lisinopril 10 mg tablet 10 mg PO DAILY atenolol 50 mg tablet 100 mg PO DAILY 90 Days Qty: 180 3RF gabapentin 100 mg capsule 200 - 300 mg PO TID 30 Days Qty: 180 2RF Assessment & Plan Assessment & Plan Plan Patient with some periods of irritability reactivity but generally improved. Patient states she feels better with mirtazapine 45 mg. Has been on mood stabilizing agents in the past and ligament patient with Seroquel but discontinued secondary to weight gain and sedation Total time managing care of this patient today ____ minutes.
== END ==
PROVIDERS: PCP Internal Medicine; Visit Provider Psychiatry & Neurology Psychiatry
DX: F33.41 Major depressive disorder, recurrent, in partial remission (principal); I25.10 Atherosclerotic heart disease of native coronary artery without angina pectoris; I10 Essential (primary) hypertension
CPT/HCPCS: 90833; 99212

== ENCOUNTER → 2022-12-14 12:24 | Outpatient (BNVA) | payer MEDICARE, OTHER, SELFPAY | PROVIDERS: PCP Internal Medicine; Visit Provider Psychiatry & Neurology Psychiatry | DX: G47.33 Obstructive sleep apnea (adult) (pediatric) (principal); F33.2 Major depressive disorder, recurrent severe without psychotic features; I10 Essential (primary) hypertension; I25.10 Atherosclerotic heart disease of native coronary artery without angina pectoris | CPT/HCPCS: 90833; 99212 ==

== ENCOUNTER → 2023-01-10 11:40 | Outpatient (BNVA) | payer MEDICARE, OTHER, SELFPAY | PROVIDERS: PCP Internal Medicine; Visit Provider Psychiatry & Neurology Psychiatry | DX: F33.41 Major depressive disorder, recurrent, in partial remission (principal) | CPT/HCPCS: 90833; 99212 ==

== ENCOUNTER 2023-02-01 10:32 | Outpatient (AMB) | payer MEDICARE, OTHER, SELFPAY ==
--- NOTE | 2023-04-19 23:02 | A.OFFPSYCH_ITS ---
Intake Intake Visit Reasons: Depression Allergies No Known Allergies [No Known Allergies*] Allergy (Verified 02/15/23 10:33) Medication List - Last Reconciled 04/19/23 by Jorje aL MD aspirin 81 mg PO DAILY atenolol 100 mg (2 x 50 mg) PO DAILY 90 days atorvastatin 80 mg PO DAILY cholecalciferol (vitamin D3) 50 mcg PO DAILY diazepam 2 - 4 mg PO DAILY PRN ezetimibe 10 mg PO DAILY gabapentin 200 - 300 mg (2 - 3 x 100 mg) PO TID 30 days lisinopril 10 mg PO BID mecobalamin (vitamin B12) 2,000 mcg PO DAILY mirtazapine 45 mg PO BEDTIME multivitamin 1 tab PO DAILY nitroglycerin 0.4 mg sublingual Q5M PRN omeprazole 40 mg PO BID oxycodone-acetaminophen 5-325 mg 1 tab PO QID PRN trospium 20 mg PO BID HPI- Psychiatric Chief Complaint: Depression HPI Narrative: The patient is seen in psychiatric follow-up with her . Patient seems somewhat improved PHQ-9 has decreased some periods of anxiety reactivity has been using gabapentin intermittently however is cautious regarding taking gabapentin 1 also using oxycodone Past Psychiatric History: hx hospitalization recurrent depression anxiety hx hospitalization and tms Mental Status Exam Mental Status Exam Patient Appearance: Well Grooomed Patient Orientation: Person, Place, Time and Situation Level of Consciousness: Awake and Appropriate Patient Behavior: Appropriate Mood Description: Anxious and Blunted Affect Description: Appropriate and Constricted Patient Cognition Impaired: No Ability to Follow Directions: Good Speech Pattern: Clear Memory Description: Intact Hallucinations: None Delusions: Not Present Thought Process: Intact and Goal Oriented Thought Content: positive for Goal Oriented, positive for Preoccupation, negative for Suicidal Ideation or negative for Homicidal Ideation Depressive Symptoms: Increased Anxiety, Increased Irritability, Increased Fatigue, Loss of Energy, Difficulty Concentrating and Back Pain Judgement: Fair Judgement and Insight: Improving judgment and impulse control generally Assessment and Plan Assessment & Plan (1) Major depressive disorder, recurrent episode, in partial remission with seasonal pattern: Status: Acute Code(s): F33.41 - Major depressive disorder, recurrent, in partial remission (2) JACOB (obstructive sleep apnea): Status: Acute Code(s): G47.33 - Obstructive sleep apnea (adult) (pediatric) (3) Essential hypertension: Status: Acute Code(s): I10 - Essential (primary) hypertension (4) Atherosclerotic cardiovascular disease: Status: Acute Code(s): I25.10 - Atherosclerotic heart disease of [place] coronary artery without angina pectoris Plan Patient generally improved some occasional relapse periods of dysphoria and irritability when triggered discussed with patient has been way said times he could be somewhat less sarcastic which can be triggering to patient in general has been more supportive patient does have intermittent shortness breath unclear chest discomfort urged her to speak to her PCP question cardiology question pulmonary component patient does have spinal stimulator does have medical treatment for coronary artery disease Continue mirtazapine low-dose Valium p.r.n. might benefit from [facility] Counseling and coordination of Care Pt. Self Management counseling: Breathing, Med illness tx adherence and Cognitive restructuring Details-Self Mgmt counseling: Issues related to self-care issues related to relational issues in the family Medication management counseling: Effectiveness Diagnosis and Prognosis Counseling: Adequacy of current interventions Details: I spent [35] minutes reviewing the record, seeing the patient and documenting in the medical record. Counseling provided to the patient/caregiver as outlined below. Addressed patient/caregiver concerns regarding current medication regime including effective adherence. Addressed patient/caregiver concerns regarding diagnosis and prognosis including accuracy of diagnosis, prognosis over time, impact of diagnosis. Addressed patient/caregiver concerns regarding impact of recent stressors. [facility] Medical History (Updated 09/05/22 @ 16:21 by Jorje La MD) Atherosclerotic cardiovascular disease Depression, major, severe recurrence Essential hypertension Other and unspecified hyperlipidemia Surgical History History of cardiac catheterization S/P insertion of spinal cord stimulator (~11/2021) Family History Father No problems noted. Mother No problems noted. 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 Patient has had some degree of chronic interpersonal discord and reactivity chronic self-esteem issues Substance History: None Trauma History: neg Coding Level of Care Code Est Pt Level 4 (88031) Diagnoses Major depressive disorder, recurrent episode, in partial remission with seasonal pattern F33.41 JACOB (obstructive sleep apnea) G47.33 Essential hypertension I10 Atherosclerotic cardiovascular disease I25.10
== END 2023-02-01 11:40 | disposition home or self-care (01) ==
LOC: HO.HOP 10:32
PROVIDERS: PCP Internal Medicine; Visit Provider Psychiatry & Neurology Psychiatry
DX: F33.41 Major depressive disorder, recurrent, in partial remission (principal); G47.33 Obstructive sleep apnea (adult) (pediatric); I10 Essential (primary) hypertension; I25.10 Atherosclerotic heart disease of native coronary artery without angina pectoris
CPT/HCPCS: 99214

== ENCOUNTER → 2023-02-01 10:32 | Outpatient (BNVA) | payer MEDICARE, OTHER, SELFPAY | PROVIDERS: PCP Internal Medicine; Visit Provider Psychiatry & Neurology Psychiatry | DX: F33.41 Major depressive disorder, recurrent, in partial remission (principal); G47.33 Obstructive sleep apnea (adult) (pediatric); I25.10 Atherosclerotic heart disease of native coronary artery without angina pectoris; I10 Essential (primary) hypertension | CPT/HCPCS: 99212 ==

== ENCOUNTER → 2023-02-15 10:21 | Outpatient (BNVA) | payer MEDICARE, OTHER, SELFPAY | PROVIDERS: PCP Internal Medicine; Referring Provider Internal Medicine; Visit Provider Internal Medicine | DX: I25.10 Atherosclerotic heart disease of native coronary artery without angina pectoris (principal); I10 Essential (primary) hypertension; E78.5 Hyperlipidemia, unspecified; G47.33 Obstructive sleep apnea (adult) (pediatric); Z79.82 Long term (current) use of aspirin; Z79.899 Other long term (current) drug therapy | CPT/HCPCS: 93005; 99212 ==

== ENCOUNTER 2023-04-20 11:39 | Outpatient (AMB) | payer MEDICARE, OTHER, SELFPAY ==
--- NOTE | 2023-04-20 11:40 | A.OFFPSYCH_ITS ---
Intake Intake Visit Reasons: Depression Allergies No Known Allergies [No Known Allergies*] Allergy (Verified 02/15/23 10:33) HPI- Psychiatric Chief Complaint: Depression HPI Narrative: pt generally doing well has anxiety regarding d in [place] with difficult relationships has recurrent guilt regarding this otherwise has generally been doing emotionally okay. Getting along well with her generally Past Psychiatric History: hx hospitalization recurrent depression anxiety hx hospitalization and tms Mental Status Exam Mental Status Exam Patient Appearance: Well Grooomed Patient Orientation: Person, Place, Time and Situation Level of Consciousness: Awake and Appropriate Patient Behavior: Appropriate Mood Description: Anxious and Blunted Affect Description: Appropriate and Constricted Patient Cognition Impaired: No Ability to Follow Directions: Good Speech Pattern: Clear Memory Description: Intact Hallucinations: None Delusions: Not Present Thought Process: Intact and Goal Oriented Thought Content: positive for Obsessional Thoughts, positive for Goal Oriented, positive for Preoccupation, negative for Suicidal Ideation or negative for Homicidal Ideation Depressive Symptoms: Increased Anxiety, Loss of Energy, Difficulty Concentrating and Back Pain Judgement: Good Judgement and Insight: Improving judgment and impulse control generally Assessment and Plan Assessment & Plan (1) Major depressive disorder, recurrent episode, in partial remission with seasonal pattern: Status: Acute Code(s): F33.41 - Major depressive disorder, recurrent, in partial remission (2) JACOB (obstructive sleep apnea): Status: Acute Code(s): G47.33 - Obstructive sleep apnea (adult) (pediatric) (3) Essential hypertension: Status: Acute Code(s): I10 - Essential (primary) hypertension (4) Atherosclerotic cardiovascular disease: Status: Acute Code(s): I25.10 - Atherosclerotic heart disease of [place] coronary artery without angina pectoris (5) Precordial chest pain: Status: Acute Code(s): R07.2 - Precordial pain Plan Continue mirtazapine 45 mg daily this seems to be a good therapeutic dose for her , intermittent use of gabapentin low-dose not taking 3 times a day generally once a day if needed aware of sedation Medications: Refilled mirtazapine 45 mg PO BEDTIME 30 tabs 3RF Counseling and coordination of Care Pt. Self Management counseling: Sleep hygiene, Behavior activation and Cognitive restructuring Details-Self Mgmt counseling: Issues related to shame relationship with daughter need to set boundaries encourage daily walk light exposure Patient seen with her Medication management counseling: Effectiveness Diagnosis and Prognosis Counseling: Adequacy of current interventions Details: I spent [35] minutes reviewing the record, seeing the patient and documenting in the medical record. Counseling provided to the patient/caregiver as outlined below. Addressed patient/caregiver concerns regarding current medication regime including effective adherence. Addressed patient/caregiver concerns regarding diagnosis and prognosis including accuracy of diagnosis, prognosis over time, impact of diagnosis. Addressed patient/caregiver concerns regarding impact of recent stressors. [facility] Medical History (Updated 09/05/22 @ 16:21 by Jorje La MD) Depression, major, severe recurrence Other and unspecified hyperlipidemia Essential hypertension Atherosclerotic cardiovascular disease Surgical History History of cardiac catheterization S/P insertion of spinal cord stimulator (~11/2021) Family History Father No problems noted. Mother No problems noted. 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 Patient has had some degree of chronic interpersonal discord and reactivity chronic self-esteem issues Substance History: None Trauma History: neg Coding Level of Care Code Est Pt Level 3 (21970) Therapy 30m w/E&M (41548) Diagnoses Major depressive disorder, recurrent episode, in partial remission with seasonal pattern F33.41 JACOB (obstructive sleep apnea) G47.33 Essential hypertension I10 Atherosclerotic cardiovascular disease I25.10 Precordial chest pain R07.2
== END 2023-04-20 13:04 | disposition home or self-care (01) ==
LOC: HO.HOP 11:39
PROVIDERS: PCP Internal Medicine; Visit Provider Psychiatry & Neurology Psychiatry
DX: F33.41 Major depressive disorder, recurrent, in partial remission (principal); G47.33 Obstructive sleep apnea (adult) (pediatric); I10 Essential (primary) hypertension; I25.10 Atherosclerotic heart disease of native coronary artery without angina pectoris; R07.2 Precordial pain
CPT/HCPCS: 90833; 99213

== ENCOUNTER → 2023-04-20 11:39 | Outpatient (BNVA) | payer MEDICARE, OTHER, SELFPAY | PROVIDERS: PCP Internal Medicine; Visit Provider Psychiatry & Neurology Psychiatry | DX: F33.41 Major depressive disorder, recurrent, in partial remission (principal); G47.33 Obstructive sleep apnea (adult) (pediatric); I10 Essential (primary) hypertension; I25.10 Atherosclerotic heart disease of native coronary artery without angina pectoris; R07.2 Precordial pain; Z79.899 Other long term (current) drug therapy | CPT/HCPCS: 90833; 99212 ==

== ENCOUNTER 2023-10-18 12:02 | Outpatient (AMB) | payer MEDICARE, OTHER, SELFPAY ==
--- NOTE | 2023-10-18 11:47 | MHC.OFFVISPS ---
Intake Intake Visit Reasons: depression Allergies No Known Allergies [No Known Allergies*] Allergy (Verified 02/15/23 10:33) Medication List - Last Reconciled 10/18/23 by Jorje La MD aspirin 81 mg PO DAILY atenolol 100 mg (2 x 50 mg) PO DAILY 90 days atorvastatin 80 mg PO DAILY cholecalciferol (vitamin D3) 50 mcg PO DAILY diazepam 2 - 4 mg PO DAILY PRN ezetimibe 10 mg PO DAILY gabapentin 200 - 300 mg (2 - 3 x 100 mg) PO TID 30 days losartan 50 mg PO DAILY mecobalamin (vitamin B12) 2,000 mcg PO DAILY mirtazapine 45 mg PO BEDTIME multivitamin 1 tab PO DAILY nitroglycerin 0.4 mg sublingual Q5M PRN omeprazole 40 mg PO BID oxycodone-acetaminophen 5-325 mg 1 tab PO QID PRN trospium 20 mg PO BID HPI- Psychiatric Chief Complaint: depression HPI Narrative: The patient is a 73-year-old female with a long history anxiety depression complicated by reactivity and impulsivity at times. She has been relatively stable for a period of time on mirtazapine and low-dose gabapentin has been helpful. Patient has chronic significant back pain Pt has been having inc back lumbar pain tries to maintain fx ambulation has done pain managment in the past has not had for an extended period of time. She does have a spinal stimulator. Mood generally okay with some periods of anxiety and despair at times in relationship to her and personal relationship with her daughter at other times relationship to issues with pain and disability. Past Psychiatric History: hx hospitalization recurrent depression anxiety hx hospitalization and tms Mental Status Exam Mental Status Exam Patient Appearance: Well Grooomed Patient Orientation: Person, Place, Time and Situation Level of Consciousness: Awake and Appropriate Patient Behavior: Appropriate Mood Description: Depressed, Anxious and Blunted Affect Description: Appropriate and Constricted Patient Cognition Impaired: No Ability to Follow Directions: Good Speech Pattern: Clear Memory Description: Intact Hallucinations: None Delusions: Not Present Thought Process: Intact and Goal Oriented Thought Content: positive for Obsessional Thoughts, positive for Goal Oriented, positive for Preoccupation, negative for Suicidal Ideation or negative for Homicidal Ideation Depressive Symptoms: Increased Anxiety, Loss of Energy, Difficulty Concentrating and Back Pain Judgement and Insight: Improved judgment and impulse control generally was restless and needed to move positions during the visit related to back pain Assessment and Plan Assessment & Plan (1) Major depressive disorder, recurrent episode, in partial remission with seasonal pattern: Status: Acute Code(s): F33.41 - Major depressive disorder, recurrent, in partial remission (2) Generalized anxiety disorder: Status: Acute Code(s): F41.1 - Generalized anxiety disorder Plan Gabapentin can be increased to to 300 mg 3 times a day using extreme caution for balance and sedation and increased fall risk. Continue mirtazapine 45 mg appears to be chronically helpful generally Discussed potential role of [facility] pain management . Things generally much better between herself and her and they have been at times previously Medications: Refilled mirtazapine 45 mg PO BEDTIME 30 tabs 3RF gabapentin 200 - 300 mg (2 - 3 x 100 mg) PO TID 180 caps 2RF 30 days Counseling and coordination of Care Pt. Self Management counseling: Breathing Details-Self Mgmt counseling: Issues related to managing chronic pain its effects Diagnosis and Prognosis Counseling: Impact of diagnosis on life functions and Adequacy of current interventions Details: I spent [37] minutes reviewing the record, seeing the patient and documenting in the medical record. Counseling provided to the patient/caregiver as outlined below. Addressed patient/caregiver concerns regarding current medication regime including effective adherence. Addressed patient/caregiver concerns regarding diagnosis and prognosis including accuracy of diagnosis, prognosis over time, impact of diagnosis. Addressed patient/caregiver concerns regarding impact of recent stressors. [facility] Medical History (Updated 11/18/23 @ 20:32 by Jorje La MD) Generalized anxiety disorder Depression, major, severe recurrence Other and unspecified hyperlipidemia Essential hypertension Atherosclerotic cardiovascular disease Surgical History S/P insertion of spinal cord stimulator (~11/2021) History of cardiac catheterization Family History Father No problems noted. Mother No problems noted. 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
== END 2023-10-18 12:30 | disposition home or self-care (01) ==
LOC: HO.HOP 12:02
PROVIDERS: PCP Internal Medicine; Visit Provider Psychiatry & Neurology Psychiatry
DX: F33.41 Major depressive disorder, recurrent, in partial remission (principal); F41.1 Generalized anxiety disorder
CPT/HCPCS: 90833; 99213

== ENCOUNTER → 2023-10-18 12:02 | Outpatient (BNVA) | payer MEDICARE, OTHER, SELFPAY | PROVIDERS: PCP Internal Medicine; Visit Provider Psychiatry & Neurology Psychiatry | DX: F33.41 Major depressive disorder, recurrent, in partial remission (principal) | CPT/HCPCS: 99212 ==

== ENCOUNTER 2024-01-31 10:44 | Outpatient (AMB) | payer MEDICARE, OTHER, SELFPAY ==
--- NOTE | 2024-01-31 11:30 | A.OFFPSYCH_ITS ---
Intake Intake Visit Reasons: depression Allergies No Known Allergies [No Known Allergies*] Allergy (Verified 02/15/23 10:33) Medication List - Last Reconciled 01/31/24 by Jorje La MD aspirin 81 mg PO DAILY atenolol 100 mg (2 x 50 mg) PO DAILY 90 days atorvastatin 80 mg PO DAILY cholecalciferol (vitamin D3) 50 mcg PO DAILY diazepam 2 - 4 mg (1 - 2 x 2 mg) PO DAILY PRN ezetimibe 10 mg PO DAILY gabapentin 200 - 300 mg (2 - 3 x 100 mg) PO TID 30 days losartan 50 mg PO DAILY mecobalamin (vitamin B12) 2,000 mcg PO DAILY mirtazapine 45 mg PO BEDTIME multivitamin 1 tab PO DAILY nitroglycerin 0.4 mg sublingual Q5M PRN omeprazole 40 mg PO BID oxycodone-acetaminophen 5-325 mg 1 tab PO QID PRN trospium 20 mg PO BID HPI- Psychiatric Chief Complaint: depression HPI Narrative: Patient seen follow-up with her . Patient's mood generally okay some periods of mild reactivity has been finding higher prescribed doses of gabapentin helpful for pain and anxiety improved quality of life patient aware of risks benefits alternatives denies worsening of sedation or balance problems. Feels generally stable on mirtazapine chronic pain with neuropathy can be at ti mes demoralizing does find higher dose Neurontin helpful. Some degree of chronic family conflict alienation from [id number] chronic difficult relationship with 1 daughter she continues in outpatient counseling Past Psychiatric History: hx hospitalization recurrent depression anxiety hx hospitalization and tms Assessment and Plan Assessment & Plan (1) Generalized anxiety disorder: Status: Acute Code(s): F41.1 - Generalized anxiety disorder (2) Major depressive disorder, recurrent episode, in partial remission with seasonal pattern: Status: Acute Code(s): F33.41 - Major depressive disorder, recurrent, in partial remission Plan Patient with chronic interpersonal issues that trigger dysphoria has markedly improved her relationship with her over time. Dealing with chronic pain issues significant spinal chronic difficulties including neuropathy. Has been using gabapentin at bedtime with good effect warned regarding fall risk with gabapentin use and need to be cautious discussed option of a LA continue mirtazapine low-dose Valium 2 mg has been intermittently helpful shorter acting benzodiazepines were not helpful Medications: Refilled gabapentin 200 - 300 mg (2 - 3 x 100 mg) PO TID 180 caps 2RF 30 days diazepam 2 - 4 mg (1 - 2 x 2 mg) PO DAILY PRN 20 tabs 1RF anxiety Counseling and coordination of Care Pt. Self Management counseling: Breathing and Behavior activation Details-Self Mgmt counseling: Issues related to chronic conflicts in the family Details-Med Mgmt counseling: Risks benefits alternatives reviewed. Warning regarding balance and fall risk issues with medication Details: I spent [] minutes reviewing the record, seeing the patient and documenting in the medical record. Counseling provided to the patient/caregiver as outlined below. Addressed patient/caregiver concerns regarding current medication regime including effective adherence. Addressed patient/caregiver concerns regarding diagnosis and prognosis including accuracy of diagnosis, prognosis over time, impact of diagnosis. Addressed patient/caregiver concerns regarding impact of recent stressors. [facility] Medical History (Updated 11/18/23 @ 20:32 by Jorje La MD) Generalized anxiety disorder Depression, major, severe recurrence Other and unspecified hyperlipidemia Essential hypertension Atherosclerotic cardiovascular disease Surgical History S/P insertion of spinal cord stimulator (~11/2021) History of cardiac catheterization Family History Father No problems noted. Mother No problems noted. 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 Patient has had some degree of chronic interpersonal discord and reactivity chronic self-esteem issues Substance History: None Trauma History: neg Coding Level of Care Code Est Pt Level 4 (07641) Diagnoses Generalized anxiety disorder F41.1 Major depressive disorder, recurrent episode, in partial remission with seasonal pattern F33.41
== END 2024-01-31 15:42 | disposition home or self-care (01) ==
LOC: HO.HOP 10:44
PROVIDERS: PCP Internal Medicine; Visit Provider Psychiatry & Neurology Psychiatry
DX: F41.1 Generalized anxiety disorder (principal); F33.41 Major depressive disorder, recurrent, in partial remission
CPT/HCPCS: 99214

== ENCOUNTER → 2024-01-31 10:44 | Outpatient (BNVA) | payer MEDICARE, OTHER, SELFPAY | PROVIDERS: PCP Internal Medicine; Visit Provider Psychiatry & Neurology Psychiatry | DX: F33.41 Major depressive disorder, recurrent, in partial remission (principal); F41.1 Generalized anxiety disorder | CPT/HCPCS: 99212 ==

== ENCOUNTER 2024-03-21 10:27 | Outpatient (AMB) | payer MEDICARE, OTHER, SELFPAY ==
[2024-03-21 10:49] VITALS: BP 122/60; PULSE 74; BMI 26.4
--- NOTE | 2024-03-21 10:49 | MHC.OFFVIS ---
Vital Signs 03/21/24 10:49 Height 5 ft 5 in Weight 158 lb 11.725 oz BMI 26.4 BP 122/60 Blood Pressure Location Lt brachial Position Sitting Pulse 74 Pulse Source Monitor Intake Visit Reasons: 1 yr f/up Allergies No Known Allergies [No Known Allergies*] Allergy (Verified 02/15/23 10:33) Medication List - Last Reconciled 03/21/24 by Ruddy Oconnell MD aspirin 81 mg PO DAILY atenolol 100 mg (2 x 50 mg) PO DAILY 90 days atorvastatin 80 mg PO DAILY cholecalciferol (vitamin D3) 50 mcg PO DAILY diazepam 2 - 4 mg (1 - 2 x 2 mg) PO DAILY PRN ezetimibe 10 mg PO DAILY gabapentin 200 - 300 mg (2 - 3 x 100 mg) PO TID 30 days losartan 50 mg PO DAILY mecobalamin (vitamin B12) 2,000 mcg PO DAILY mirtazapine 45 mg PO BEDTIME multivitamin 1 tab PO DAILY nitroglycerin 0.4 mg sublingual Q5M PRN omeprazole 40 mg PO BID oxycodone-acetaminophen 5-325 mg 1 tab PO QID PRN trospium 20 mg PO BID HPI Comments Details: Ximena returns for follow-up of coronary disease and angina. To recall she underwent cardiac catheterization in 2018, that showed LAD as well as RCA stenosis. In 2022, she had hospitalization to [facility] with chest pain. At that time, it seemed atypical. Stress perfusion imaging was unremarkable and she was discharged home. Over the last year, she states she has been generally doing well. No cardiac symptoms. No angina. [facility] Medical History (Updated 11/18/23 @ 20:32 by Jorje La MD) Generalized anxiety disorder Depression, major, severe recurrence Other and unspecified hyperlipidemia Essential hypertension Atherosclerotic cardiovascular disease Surgical History S/P insertion of spinal cord stimulator (~11/2021) History of cardiac catheterization Family History Father No problems noted. Mother No problems noted. Social History Patient Tobacco Use Status: Never used Tobacco Review of Systems Const Denies weakness ENT Denies dizziness Card Denies chest pain, Denies chest pain with activity, Denies syncope, Denies rapid heart rate, Denies pedal edema, Denies edema, Denies leg edema, Denies lightheadedness, Denies palpitations, Denies dyspnea, Denies dyspnea on exertion and Denies orthopnea Resp Denies cough, Denies dyspnea and Denies dyspnea on exertion GI Denies hematochezia and Denies change in stool character Musc Denies abnormal gait, Denies muscle cramps, Denies muscle weakness, Denies numbness, Denies radiating pain into limb and Denies tingling Neuro Denies abnormal gait, Denies dizziness, Denies syncope, Denies numbness, Denies tingling and Denies weakness Endo Denies palpitations Physical Exam Vital Signs: Last Vital Signs Pulse 74 03/21/24 10:49 BP 122/60 03/21/24 10:49 BMI result Body Mass Index 26.4 Const General: comfortable and no acute distress Orientation/consciousness: patient oriented x3 HEENT Other: Unremarkable Head: Yes normal to inspection Neck Neck: Yes normal visual inspection Chest Chest palpation & inspection: normal inspection of the chest Resp Auscultation: clear to auscultation bilaterally Cardio Palpation: normal PMI Heart sounds: S1 normal heart sound present, S2 normal heart sound present, no gallops, no murmurs and no rubs GI Palpation (GI): Soft to palpation Back/Spine/Pelvis Other: unremarkable Skin General skin exam: no rashes or lesions noted Neuro General: patient oriented x3 Extrem General: Yes normal to inspection Psych Mental Status: mental status grossly normal Office Procedures EKG Details: EKG with underlying sinus rhythm at 74/Min; mild nonspecific ST-T changes; [place]. [id number], Complete Assessment & Plan Assessment & Plan (1) Atherosclerotic cardiovascular disease: Code(s): I25.10 - Atherosclerotic heart disease of [place] coronary artery without angina pectoris Category: Medical Plan: In the past, she had inferior wall ischemia on stress testing. Cardiac catheterization had shown 40% stenosis in the mid LAD and 70% stenosis in the non-dominant mid RCA. In the repeat testing, there is discrepancy between the results. Echocardiogram is showing wall motion findings in the RCA territory but the stress perfusion imaging was unremarkable. Another stress perfusion imaging from 01/2023 at [facility] showed no perfusion abnormalities. Clinically, she has got no angina. Hence continue medications. On aspirin, beta-blockers, statins. Last LDL cholesterol 60 mg/dL. (2) Essential hypertension: Code(s): I10 - Essential (primary) hypertension Category: Medical Plan: Stable. No changes. (3) Other and unspecified hyperlipidemia: Code(s): E78.5 - Hyperlipidemia, unspecified Category: Medical Plan: Continue statins. (4) JACOB (obstructive sleep apnea): Code(s): G47.33 - Obstructive sleep apnea (adult) (pediatric) Category: Medical Plan: Not able to tolerate CPAP. Plan Discussed with significant other. Coding Level of Care Code Est Pt Level 4 (75605) Diagnoses Atherosclerotic cardiovascular disease I25.10 Essential hypertension I10 Other and unspecified hyperlipidemia E78.5 JACOB (obstructive sleep apnea) G47.33 CPT Codes EKG - CPT: [id number], Complete ([id number])
== END 2024-03-21 11:26 | disposition home or self-care (01) ==
PROVIDERS: PCP Internal Medicine; Visit Provider Internal Medicine
DX: I25.10 Atherosclerotic heart disease of native coronary artery without angina pectoris (principal); I10 Essential (primary) hypertension; E78.5 Hyperlipidemia, unspecified; G47.33 Obstructive sleep apnea (adult) (pediatric)
CPT/HCPCS: 93010; 99214

== ENCOUNTER → 2024-03-21 10:27 | Outpatient (BNVA) | payer MEDICARE, OTHER, SELFPAY | PROVIDERS: PCP Internal Medicine; Visit Provider Internal Medicine | DX: I25.119 Atherosclerotic heart disease of native coronary artery with unspecified angina pectoris (principal); Z98.890 Other specified postprocedural states; E78.5 Hyperlipidemia, unspecified; G47.33 Obstructive sleep apnea (adult) (pediatric) | CPT/HCPCS: 93005; 99212 ==

== ENCOUNTER 2024-04-10 12:27 | Outpatient (AMB) | payer MEDICARE, OTHER, SELFPAY ==
[2024-04-10 12:45] VITALS: BP 140/80; PULSE 76; BMI 26.1
--- NOTE | 2024-04-10 12:45 | MHC.OFFVIS ---
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 Accompanied by: Spouse Allergies No Known Allergies [No Known Allergies*] Allergy (Verified 02/15/23 10:33) Medication List - Last Reconciled 04/10/24 by Ruddy Oconnell MD aspirin 81 mg PO DAILY atenolol 100 mg (2 x 50 mg) PO DAILY 90 days atorvastatin 80 mg PO DAILY cholecalciferol (vitamin D3) 50 mcg PO DAILY diazepam 2 - 4 mg (1 - 2 x 2 mg) PO DAILY PRN ezetimibe 10 mg PO DAILY gabapentin 200 - 300 mg (2 - 3 x 100 mg) PO TID 30 days losartan 50 mg PO DAILY mecobalamin (vitamin B12) 2,000 mcg PO DAILY mirtazapine 45 mg PO BEDTIME multivitamin 1 tab PO DAILY nitroglycerin 0.4 mg sublingual Q5M PRN omeprazole 40 mg PO BID oxycodone-acetaminophen 5-325 mg 1 tab PO QID PRN trospium 20 mg PO BID HPI Comments Details: Ximena had called with complaints of chest pain at rest and hence she is brought here for an appointment. She has history of coronary artery disease. To recall she underwent cardiac catheterization in 2018, that showed LAD as well as RCA stenosis. In 2022, she had hospitalization to [facility] with chest pain. At that time, it seemed atypical. Stress perfusion imaging was unremarkable and she was discharged home. During recent appointment few weeks back, she stated that she was feeling fine, but then called back today saying that she was having chest pain. She gets relief from nitroglycerin. [facility] Medical History (Updated 11/18/23 @ 20:32 by Jorje La MD) Generalized anxiety disorder Depression, major, severe recurrence Other and unspecified hyperlipidemia Essential hypertension Atherosclerotic cardiovascular disease Surgical History S/P insertion of spinal cord stimulator (~11/2021) History of cardiac catheterization Family History Father No problems noted. Mother No problems noted. Social History Patient Tobacco Use Status: Never used Tobacco Review of Systems Const Denies chills, Denies fatigue, Denies fever(s), Denies weight gain and Denies weight loss ENT Denies dizziness Card Reports chest pain, Denies leg edema, Denies lightheadedness, Reports palpitations, Reports dyspnea, Denies dyspnea on exertion, Denies orthopnea and Denies other Resp Denies cough, Reports dyspnea and Denies dyspnea on exertion GI Denies hematochezia and Denies change in stool character Musc Denies abnormal gait, Denies muscle weakness, Denies numbness, Denies radiating pain into limb and Denies tingling Neuro Denies abnormal gait, Denies dizziness, Denies numbness and Denies tingling Endo Denies fatigue and Reports palpitations Physical Exam Vital Signs: Last Vital Signs Pulse 76 04/10/24 12:45 BP 140/80 H 04/10/24 12:45 BMI result Body Mass Index 26.1 Const General: comfortable and no acute distress Orientation/consciousness: patient oriented x3 HEENT Other: Unremarkable Head: Yes normal to inspection Neck Neck: Yes normal visual inspection Chest Chest palpation & inspection: normal inspection of the chest Resp Auscultation: clear to auscultation bilaterally Cardio Palpation: normal PMI Heart sounds: S1 normal heart sound present, S2 normal heart sound present, no gallops, no murmurs and no rubs GI Palpation (GI): Soft to palpation Back/Spine/Pelvis Other: unremarkable Skin General skin exam: no rashes or lesions noted Neuro General: patient oriented x3 Extrem General: Yes normal to inspection Psych Mental Status: mental status grossly normal Office Procedures EKG Details: EKG with sinus rhythm at 76/Min; inferior as well as anterolateral nonspecific ST-T changes but mostly similar to prior. [id number], Complete Assessment & Plan Assessment & Plan (1) Atherosclerotic cardiovascular disease: Code(s): I25.10 - Atherosclerotic heart disease of [place] coronary artery without angina pectoris Category: Medical Plan: In the past, she had inferior wall ischemia on stress testing. Cardiac catheterization had shown 40% stenosis in the mid LAD and 70% stenosis in the non-dominant mid RCA. In the repeat testing, there is discrepancy between the results. Echocardiogram is showing wall motion findings in the RCA territory but the stress perfusion imaging was unremarkable. Another stress perfusion imaging from 01/2023 at [facility] showed no perfusion abnormalities. She is again complaining of chest pain, 3 episodes in the last few weeks. Hence we will repeat testing. Otherwise, continue aspirin, beta-blockers, sublingual nitroglycerin as needed, statins. On aspirin, beta-blockers, statins. Last LDL cholesterol 60 mg/dL. If chest pain recurs and does not get better, advised emergency room. (2) Essential hypertension: Code(s): I10 - Essential (primary) hypertension Category: Medical Plan: Stable. No changes. (3) Other and unspecified hyperlipidemia: Code(s): E78.5 - Hyperlipidemia, unspecified Category: Medical Plan: Continue statins. (4) JACOB (obstructive sleep apnea): Code(s): G47.33 - Obstructive sleep apnea (adult) (pediatric) Category: Medical Plan: Not able to tolerate CPAP. Plan Discussed with significant other. Orders: Orders NM cardiolite stress test Today I25.10 - Atherosclerotic heart disease of [place] coronary artery without angina pectoris, R07.2 - Precordial pain CA echo transthoracic complete Today I25.10 - Atherosclerotic heart disease of [place] coronary artery without angina pectoris CA lexiscan stress w essence Today I20.9 - Angina pectoris, unspecified, I25.10 - Atherosclerotic heart disease of [place] coronary artery without angina pectoris Coding Level of Care Code Est Pt Level 4 (74302) Diagnoses Atherosclerotic cardiovascular disease I25.10 Essential hypertension I10 Other and unspecified hyperlipidemia E78.5 JACOB (obstructive sleep apnea) G47.33 CPT Codes EKG - CPT: 44730-[id number], Complete ([id number])
== END 2024-04-10 13:16 | disposition home or self-care (01) ==
PROVIDERS: PCP Internal Medicine; Visit Provider Internal Medicine
DX: I25.10 Atherosclerotic heart disease of native coronary artery without angina pectoris (principal); I10 Essential (primary) hypertension; E78.5 Hyperlipidemia, unspecified; G47.33 Obstructive sleep apnea (adult) (pediatric)
CPT/HCPCS: 93010; 99214

== ENCOUNTER → 2024-04-10 12:27 | Outpatient (BNVA) | payer MEDICARE, OTHER, SELFPAY | PROVIDERS: PCP Internal Medicine; Visit Provider Internal Medicine | DX: I25.10 Atherosclerotic heart disease of native coronary artery without angina pectoris (principal); I10 Essential (primary) hypertension; E78.5 Hyperlipidemia, unspecified; G47.33 Obstructive sleep apnea (adult) (pediatric) | CPT/HCPCS: 93005; 99212 ==

== ENCOUNTER 2024-04-24 12:01 | Outpatient (AMB) | payer MEDICARE, OTHER, SELFPAY ==
--- NOTE | 2024-04-24 12:36 | A.OFFPSYCH_ITS ---
Intake Intake Visit Reasons: DEPRESSION Allergies No Known Allergies [No Known Allergies*] Allergy (Verified 02/15/23 10:33) Medication List - Last Reconciled 04/24/24 by Jorje La MD aspirin 81 mg PO DAILY atenolol 100 mg (2 x 50 mg) PO DAILY 90 days atorvastatin 80 mg PO DAILY cholecalciferol (vitamin D3) 50 mcg PO DAILY diazepam 2 - 4 mg (1 - 2 x 2 mg) PO DAILY PRN ezetimibe 10 mg PO DAILY gabapentin 200 - 300 mg (2 - 3 x 100 mg) PO TID 30 days losartan 50 mg PO DAILY mecobalamin (vitamin B12) 2,000 mcg PO DAILY mirtazapine 45 mg PO BEDTIME multivitamin 1 tab PO DAILY nitroglycerin 0.4 mg sublingual Q5M PRN omeprazole 40 mg PO BID oxycodone-acetaminophen 5-325 mg 1 tab PO QID PRN trospium 20 mg PO BID HPI- Psychiatric Chief Complaint: DEPRESSION HPI Narrative: Patient seen psychiatric follow-up with her . Patient generally doing okay has some difficulty at times with insomnia related to pain. We have talked about interaction of gabapentin with opiate use and risk of falls patient denies recent fall regarding this. Patient generally seems relatively stable on mirtazapine at bedtime gabapentin t.i.d. occasional use of low-dose diazepam which has been well tolerated generally chronic periods of some degree of irritability and reactivity her children are often a trigger Past Psychiatric History: hx hospitalization recurrent depression anxiety hx hospitalization and tms Mental Status Exam Mental Status Exam Patient Appearance: Well Grooomed Patient Orientation: Person, Place, Time and Situation Level of Consciousness: Awake and Appropriate Patient Behavior: Appropriate Mood Description: Anxious and Blunted Affect Description: Appropriate and Constricted Patient Cognition Impaired: No Ability to Follow Directions: Good Speech Pattern: Clear Memory Description: Intact Hallucinations: None Delusions: Not Present Thought Process: Intact and Goal Oriented Thought Content: positive for Obsessional Thoughts, positive for Goal Oriented, positive for Preoccupation, negative for Suicidal Ideation or negative for Homicidal Ideation Depressive Symptoms: Increased Anxiety, Loss of Energy and Back Pain Judgement and Insight: appropriate dealing with chronic pain issues Assessment and Plan Assessment & Plan (1) Major depressive disorder, recurrent episode, in partial remission with seasonal pattern: Status: Acute Code(s): F33.41 - Major depressive disorder, recurrent, in partial remission (2) Generalized anxiety disorder: Status: Acute Code(s): F41.1 - Generalized anxiety disorder (3) JACOB (obstructive sleep apnea): Status: Acute Code(s): G47.33 - Obstructive sleep apnea (adult) (pediatric) Plan Discussed different strategies to manage current stressors continue mirtazapine gabapentin t.i.d. with clear wanting to use with caution given fall risk generally doing ok supportive Medications: Refilled mirtazapine 45 mg PO BEDTIME 90 tabs 1RF Counseling and coordination of Care Pt. Self Management counseling: Breathing, Maintenance-social rhythm, Behavior activation and Cognitive restructuring Medication management counseling: Effectiveness, Side effects and Dosing range Diagnosis and Prognosis Counseling: Accuracy of diagnosis, Impact of diagnosis on life functions and Adequacy of current interventions Details: I spent [40] minutes reviewing the record, seeing the patient and documenting in the medical record. Counseling provided to the patient/caregiver as outlined below. Addressed patient/caregiver concerns regarding current medication regime including effective adherence. Addressed patient/caregiver concerns regarding diagnosis and prognosis including accuracy of diagnosis, prognosis over time, impact of di agnosis. Addressed patient/caregiver concerns regarding impact of recent stressors. [facility] Medical History (Updated 11/18/23 @ 20:32 by Jorje La MD) Generalized anxiety disorder Depression, major, severe recurrence Other and unspecified hyperlipidemia Essential hypertension Atherosclerotic cardiovascular disease Surgical History S/P insertion of spinal cord stimulator (~11/2021) History of cardiac catheterization Family History Father No problems noted. Mother No problems noted. 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 Patient has had some degree of chronic interpersonal discord and reactivity chronic self-esteem issues Substance History: None Trauma History: neg Coding Level of Care Code Est Pt Level 3 (38673) Therapy 30m w/E&M (80308) Diagnoses Major depressive disorder, recurrent episode, in partial remission with seasonal pattern F33.41 Generalized anxiety disorder F41.1 JACOB (obstructive sleep apnea) G47.33
== END 2024-04-24 12:58 | disposition home or self-care (01) ==
LOC: HO.HOP 12:01
PROVIDERS: PCP Internal Medicine; Visit Provider Psychiatry & Neurology Psychiatry
DX: F33.41 Major depressive disorder, recurrent, in partial remission (principal); F41.1 Generalized anxiety disorder; G47.33 Obstructive sleep apnea (adult) (pediatric)
CPT/HCPCS: 90833; 99213

== ENCOUNTER → 2024-04-24 12:01 | Outpatient (BNVA) | payer MEDICARE, OTHER, SELFPAY | PROVIDERS: PCP Internal Medicine; Visit Provider Psychiatry & Neurology Psychiatry | DX: F33.41 Major depressive disorder, recurrent, in partial remission (principal); F41.1 Generalized anxiety disorder; G47.33 Obstructive sleep apnea (adult) (pediatric) | CPT/HCPCS: 99212 ==

== ENCOUNTER → 2024-05-29 07:54 | Outpatient (REF) | payer MEDICARE, OTHER, SELFPAY ==
--- NOTE | ~2024-05-29 | NM_ITS ---
Lexiscan Myocardial perfusion study Indication: Precordial chest pain Technique: The patient was brought in for a Lexiscan perfusion study on 05/28/2024 and was injected 0.4 mg of Lexiscan intravenously. Within a minute of this injection 25 mCi of sestamibi was given intravenously. Images were obtained using the SPECT gamma camera interlaced with the gating device. Images were obtained in supine position. Resting perfusion study was performed on 05/31/2024. Patient was administered 25 mCi of sestamibi intravenously at rest. Images were then obtained in supine position. Images obtained without without CT attenuation. Total DLP 80 mGy-cm. Images were processed with the software and compared side to side in short axis, horizontal long axis and vertical long axis views. Findings: The stress perfusion study showed both attenuated as well as nonattenuated corrected images show normal uptake of radiotracer in all segments of the LV myocardium. The gated study shows normal LV systolic function with calculated LVEF of 70%. LV cavity is normal in size. The gated study shows normal systolic wall thickening and contraction of segments. Resting study shows no change in perfusion pattern compared to stress perfusion study. Gating at rest reveals normal systolic wall motion with ejection fraction at 60%. The findings are consistent with normal myocardial perfusion. NM/NM cardiolite stress test Impression: 1. Myocardial perfusion imaging study shows normal myocardial perfusion 2. Gated LVEF is 70% 3. Transient ischemic dilatation not present Nondiagnostic changes on EKG. Electronically signed by: Javier Daniels MD 06/01/2024 05:14 PM EDT
--- NOTE | 2024-05-29 08:07 | CA_ITS ---
Transthoracic Echocardiogram Patient (Last, First, Middle): Ximena Larkin M Gender: Female Date of : 1950 Age: 74 Procedure Date: 05/29/2024 Procedure Type: Transthoracic Echocardiogram Location: OP Height: 165.1 cm Weight: 68.04 kg BSA: 1.75 m2 Heart Rate: bpm BP: 122 / 80 mmHg Institutional Nutrition Consultant: Referring MD: Ruddy Oconnell MD Drop Wire Stringer: Javier Daniels MD Symptoms: I25.10 - Atherosclerotic heart disease of [place] coronary artery without... Study Quality: TDS ON LA/SA, GOOD ON APICAL ECG Rhythm: Sinus Conclusions: - 1. Technically difficult parasternal windows 2. Low normal LV ejection fraction 50-55% with regional wall motion abnormality suggestive of underlying coronary disease with impaired relaxation filling pattern 3. Cardiac valvular Doppler within normal limits 4. Normal RV systolic pressure Findings Left Ventricle Normal left ventricular cavity size. There is normal left ventricular wall thickness. The left ventricular systolic function is low normal. The visually estimated ejection fraction is between 50-55%. Spectral Doppler is indicative of an impaired relaxation filling pattern. E/E prime ratio is <8, consistent with normal filling pressures. Wall Motion Rest Echo Findings The basal inferior, mid inferior, and basal inferoseptal segments are hypokinetic. All other scored wall segments showed normal motion. Right Ventricle Normal right ventricular cavity size and systolic function. Atria The left atrium is normal in size. Interatrial shunt cannot be excluded. The right atrium is normal in size. Aortic Valve The aortic valve was not well visualized. There is no aortic valve stenosis. There is no aortic valve regurgitation. Mitral Valve Likely normal mitral valve structure and function. There is mild anterior mitral leaflet thickening. There is trace mitral valve regurgitation. There is no mitral valve stenosis. Pulmonic Valve The pulmonic valve was not well visualized. Tricuspid Valve Likely normal tricuspid valve structure and function. There is trace tricuspid valve regurgitation. The right ventricular systolic pressure is normal. The right ventricular systolic pressure is 14 mmHg. Normal right atrial pressure. There is no evidence of pulmonary hypertension. Great Vessels The aorta was not well visualized. The pulmonary artery was not well visualized. Venous The inferior vena cava is normal in size and collapses greater than 50% with inspiration. Pericardium/Pleural The pericardium was not well visualized. Prior Study Comparison Changes noted compared to prior study dated: 10/17/2020. LV systolic function has marginally improved Measurements 2D Linear Measurements IVSd: 1.00 0.6-0.9/0.6-1.0 cm LVIDd: 4.22 3.9-5.3/4.2-5.9 cm LVIDd Index: 2.41 2.4-3.2/2.2-3.1 cm/m2 LVIDs: 2.84 2.0-3.6 cm LVPWd: 1.07 0.7-1.1 cm Ao Root: 2.80 2.1-3.5 cm LA Diam: 2.60 2.7-3.8/3.0-4.0 cm LAIDs Index: 1.49 1.5-2.3 cm/m2 LV Mass: 180.41 67-162/88-224 g LV Mass Index: 103.09 43-95/49-115 g/m2 LVOT Diam: 1.90 3.0+(-)1.3 cm 2D Systolic Function EF 4C: 50.00 >55% EF 2C: 58.20 >55% EF BiP: 53.90 >55% Mitral Valve MV Pk E: 0.47 MV PK A: 0.84 MV Decel Time: 147.00 E/A: 0.60 E'Lateral: 8.05 E'Medial: 5.11 E/E' Med: 9.20 E/E' Lat: 5.90 PHT: 43.00 MVA PHT: 5.12 Decel [place]: 3.22 Aortic Valve AoV Pk Vin: 1.15 AoV Mn Vin: 0.69 AoV VTI: 0.24 AoV Pk Grad: 5.00 Aov Mn Grad: 2.00 AMI Cont.VTI: 2.53 LVOT LVOT Pk Vni: 1.00 LVOT Mn Vin: 0.60 LVOT VTI: 0.21 LVOT Pk Grad: 4.00 LVOT Mn Grad: 2.00 LVOT Diam: 1.90 LVOT Area: 2.84 Diastolic Function MV Pk E: 0.47 MV Pk A: 0.84 E/A: 0.60 E'Medial: 5.11 E/E' Med: 9.20 E' Laterial: 8.05 E/E' Lat: 5.90 Right Ventricle TAPSE (mm): 17.40 TVS' Vin: 8.16 Tricuspid Valve TR Pk Vin: 1.63 TR Pk Grad: 11.00 RA Press: 3.00 RVSP: 14.00 Great Vessels Aorta Ao Root-2D: 2.80 2.0-3.7 cm Pulmonary Valve PV Pk Vin: 0.72 Peak PV Grad: 2.00 Updated in Other Vendor System with Status of Final Javier Daniels MD electronically signed on 05/30/2024 9:02:26 AM with status of Final
--- NOTE | 2024-05-29 08:07 | CA_ITS ---
Acquisition Time: 2024-05-29 08:42:45 Total Exercise Time: 00:02:00 Test Indications: CAD Medications: SEE H Protocol: LEXISCAN Max HR: 113 BPM 77% of Pred: 146 BPM Max BP: 148/082 mmHG Max Work Load: 1.0 METS Pharmacological stress test with Lexiscan injection, while sitting and kicking her legs, without anginal symptoms, without arrythmia, with normotensive response to injection, with nondiagnostic EKG for ischemia. In recovery she reported nausea and was treated with Aminophylline 75mg IVP to reverse Lexiscan with resolution of symptom. Nuclear images pending. Test reviewed with Dr Daniels. Referred By: Ruddy Oconnell Overread By: ZAN LUCERO
== END ==
LOC: HO.CARD 07:54
PROVIDERS: Visit Provider Internal Medicine
DX: R07.2 Precordial pain (principal); I25.119 Atherosclerotic heart disease of native coronary artery with unspecified angina pectoris
CPT/HCPCS: 78452; 93017; 93306; A9500; J0280; J2785

== ENCOUNTER → 2024-05-29 08:07 | Outpatient (BNV) | payer MEDICARE, OTHER, SELFPAY | PROVIDERS: Visit Provider Nurse Practitioner Family | DX: R07.2 Precordial pain (principal) | CPT/HCPCS: 78452; 93016; 93018; 93320; 93325; 93350 ==

== ENCOUNTER 2024-07-17 12:58 | Outpatient (AMB) | payer MEDICARE, OTHER, SELFPAY ==
[2024-07-17 13:19] VITALS: BP 126/68; PULSE 90; BMI 26.1
--- NOTE | 2024-07-17 13:19 | A.OFFVIS_ITS ---
Vital Signs 07/17/24 13:19 Height 5 ft 5 in Weight 156 lb 15.506 oz BMI 26.1 BP 126/68 Blood Pressure Location Lt brachial Position Sitting Pulse 90 Pulse Source Pulse Oximeter Intake Visit Reasons: f/u after testing Support Team Assoc Required: No Accompanied by: Spouse Allergies sulfamethoxazole [From Bactrim] Allergy (Mild, Verified 07/17/24 13:23) Rash trimethoprim [From Bactrim] Allergy (Mild, Verified 07/17/24 13:23) Rash Medication List - Last Reconciled 07/17/24 by Ruddy Oconnell MD aspirin 81 mg PO DAILY atenolol 100 mg (2 x 50 mg) PO DAILY 90 days atorvastatin 80 mg PO DAILY cholecalciferol (vitamin D3) 50 mcg PO DAILY diazepam 2 - 4 mg (1 - 2 x 2 mg) PO DAILY PRN ezetimibe 10 mg PO DAILY gabapentin 300 mg PO ONCE losartan 50 mg PO DAILY mecobalamin (vitamin B12) 2,000 mcg PO DAILY mirtazapine 45 mg PO BEDTIME multivitamin 1 tab PO DAILY nitroglycerin 0.4 mg sublingual Q5M PRN omeprazole 40 mg PO BID oxycodone-acetaminophen 5-325 mg 1 tab PO QID PRN trospium 20 mg PO ONCE HPI Comments Details: Ximena returns for follow-up. To recall, she has a history of coronary disease and underwent cardiac catheterization in 2018, that showed LAD as well as RCA stenosis. In 2022, she had hospitalization to [facility] with chest pain. At that time, it seemed atypical. Stress perfusion imaging was unremarkable and she was discharged home. Recently, again had further chest pain episodes and that led to repeat workup including echocardiogram and another stress test. She had stated that she got relief from nitroglycerin. Today, she states that she feels actually quite good and does not have any further chest pain issues. She also has a spinal cord stimulator and has got musculoskeletal pains and hence it is very confusing at times if her pains are cardiac or muscular. [facility] Medical History (Updated 11/18/23 @ 20:32 by Jorje La MD) Generalized anxiety disorder Depression, major, severe recurrence Other and unspecified hyperlipidemia Essential hypertension Atherosclerotic cardiovascular disease Surgical History S/P insertion of spinal cord stimulator (~11/2021) History of cardiac catheterization Family History Father No problems noted. Mother No problems noted. Social History (Updated 07/17/24 @ 13:25 by Jerilyn Asencio CMA) Alcohol intake: never Patient Tobacco Use Status: Never used Tobacco Review of Systems Const Denies chills, Denies fatigue, Denies fever(s), Denies weight gain and Denies weight loss ENT Denies dizziness Card Denies chest pain, Denies leg edema, Denies lightheadedness, Denies palpitations, Denies dyspnea on exertion, Denies orthopnea and Denies other Resp Denies cough and Denies dyspnea on exertion GI Denies hematochezia and Denies change in stool character Musc Denies abnormal gait, Denies muscle weakness, Denies numbness, Denies radiating pain into limb and Denies tingling Neuro Denies abnormal gait, Denies dizziness, Denies numbness and Denies tingling Endo Denies fatigue and Denies palpitations Physical Exam Vital Signs: Last Vital Signs Pulse 90 07/17/24 13:19 BP 126/68 07/17/24 13:19 BMI result Body Mass Index 26.1 Const General: comfortable and no acute distress Orientation/consciousness: patient oriented x3 HEENT Other: Unremarkable Head: Yes normal to inspection Neck Neck: Yes normal visual inspection Chest Chest palpation & inspection: normal inspection of the chest Resp Auscultation: clear to auscultation bilaterally Cardio Palpation: normal PMI Heart sounds: S1 normal heart sound present, S2 normal heart sound present, no gallops, no murmurs and no rubs GI Palpation (GI): Soft to palpation Back/Spine/Pelvis Other: unremarkable Skin General skin exam: no rashes or lesions noted Neuro General: patient oriented x3 Extrem General: Yes normal to inspection Psych Mental Status: mental status grossly normal Assessment & Plan Assessment & Plan (1) Atherosclerotic cardiovascular disease: Code(s): I25.10 - Atherosclerotic heart disease of [place] coronary artery without angina pectoris Category: Medical Plan: In the past, she had inferior wall ischemia on stress testing. Cardiac catheterization had shown 40% stenosis in the mid LAD and 70% stenosis in the non-dominant mid RCA. He has had many stress test at different times. In the most recent stress test from last month, normal myocardial perfusion. In another study from 2022 at [facility], again no perfusion abnormalities. In the recent echocardiogram, low normal LVEF at 55%. Inferior/inferoseptal hypokinesis. Similar to prior study. Overall, stable coronary disease. Unclear if chest pains or cardiac versus musculoskeletal and could be either. Any case, resolved at this time. We will keep her on her usual medications including aspirin/beta-blockers, statins and as needed sublingual nitroglycerin. Last LDL cholesterol 60 mg/dL. She will contact us as necessary. (2) Essential hypertension: Code(s): I10 - Essential (primary) hypertension Category: Medical Plan: Stable. No changes. (3) Other and unspecified hyperlipidemia: Code(s): E78.5 - Hyperlipidemia, unspecified Category: Medical Plan: Continue statins. (4) JACOB (obstructive sleep apnea): Code(s): G47.33 - Obstructive sleep apnea (adult) (pediatric) Category: Medical Plan: Not able to tolerate CPAP. Plan Discussed with significant other. Medications: Changed From gabapentin 200 - 300 mg (2 - 3 x 100 mg) PO TID 30 days 180 caps 2RF To gabapentin 300mg and 200mg BID prn 300 mg PO ONCE Coding Level of Care Code Est Pt Level 4 (49722) Diagnoses Atherosclerotic cardiovascular disease I25.10 Essential hypertension I10 Other and unspecified hyperlipidemia E78.5 JACOB (obstructive sleep apnea) G47.33
== END 2024-07-17 13:41 | disposition home or self-care (01) ==
PROVIDERS: PCP Internal Medicine; Visit Provider Internal Medicine
DX: I25.10 Atherosclerotic heart disease of native coronary artery without angina pectoris (principal); I10 Essential (primary) hypertension; E78.5 Hyperlipidemia, unspecified; G47.33 Obstructive sleep apnea (adult) (pediatric)
CPT/HCPCS: 99214

== ENCOUNTER → 2024-07-17 12:58 | Outpatient (BNVA) | payer MEDICARE, OTHER, SELFPAY | PROVIDERS: PCP Internal Medicine; Visit Provider Internal Medicine | DX: I25.10 Atherosclerotic heart disease of native coronary artery without angina pectoris (principal); I10 Essential (primary) hypertension; E78.5 Hyperlipidemia, unspecified; G47.33 Obstructive sleep apnea (adult) (pediatric) | CPT/HCPCS: 99212 ==

== ENCOUNTER 2024-07-24 13:49 | Outpatient (AMB) | payer MEDICARE, OTHER, SELFPAY ==
--- NOTE | 2024-07-24 14:14 | MHC.OFFVISPS ---
Intake Intake Visit Reasons: DEPRESSION Allergies sulfamethoxazole [From Bactrim] Allergy (Mild, Verified 07/17/24 13:23) Rash trimethoprim [From Bactrim] Allergy (Mild, Verified 07/17/24 13:23) Rash Medication List - Last Reconciled 07/24/24 by Jorje La MD aspirin 81 mg PO DAILY atenolol 100 mg (2 x 50 mg) PO DAILY 90 days atorvastatin 80 mg PO DAILY cholecalciferol (vitamin D3) 50 mcg PO DAILY diazepam 2 - 4 mg (1 - 2 x 2 mg) PO DAILY PRN ezetimibe 10 mg PO DAILY gabapentin 300 mg PO ONCE losartan 50 mg PO DAILY mecobalamin (vitamin B12) 2,000 mcg PO DAILY mirtazapine 45 mg PO BEDTIME multivitamin 1 tab PO DAILY nitroglycerin 0.4 mg sublingual Q5M PRN omeprazole 40 mg PO BID oxycodone-acetaminophen 5-325 mg 1 tab PO QID PRN trospium 20 mg PO ONCE HPI- Psychiatric Chief Complaint: DEPRESSION HPI Narrative: Pt has been inc anxious phys feeling worry regarding her daughter Pt tends to be ruminating . Daughter is in financial straights in [facility] [place]. Daughter is disabled from scoliosis . Pt tends to self blame and or be reactive some help with mirtazapine gabapentin low dose at hs. Sees dr dewey rawls in [place]. Past Psychiatric History: hx hospitalization recurrent depression anxiety hx hospitalization and tms Assessment and Plan Assessment & Plan (1) Generalized anxiety disorder: Status: Acute Code(s): F41.1 - Generalized anxiety disorder (2) Depression, major, severe recurrence: Status: Acute Code(s): F33.2 - Major depressive disorder, recurrent severe without psychotic features Plan start buspirone risks benefits reviewed with pt 5 bid to inc to 10 bid as tolerated.cont mirtazapine encourage muse headband or other relaxation meditation practice ? consider emdr. Medications: New buspirone 1/2 tab 2 x day x 2 weeks then 1 tab 2 x day 5 - 10 mg (0.5 - 1 x 10 mg) PO BID 60 tabs 2RF Counseling and coordination of Care Pt. Self Management counseling: Breathing, Light exposure and Mindfulness Medication management counseling: Effectiveness, Side effects and Dosing range Diagnosis and Prognosis Counseling: Problematic behaviors secondary to diagnosis and Adequacy of current interventions Details: I spent [40] minutes reviewing the record, seeing the patient and documenting in the medical record. Counseling provided to the patient/caregiver as outlined below. Addressed patient/caregiver concerns regarding current medication regime including effective adherence. Addressed patient/caregiver concerns regarding diagnosis and prognosis including accuracy of diagnosis, prognosis over time, impact of diagnosis. Addressed patient/caregiver concerns regarding impact of recent stressors. [facility] Medical History (Updated 11/18/23 @ 20:32 by Jorje La MD) Generalized anxiety disorder Depression, major, severe recurrence Other and unspecified hyperlipidemia Essential hypertension Atherosclerotic cardiovascular disease Surgical History S/P insertion of spinal cord stimulator (~11/2021) History of cardiac catheterization Family History Father No problems noted. Mother No problems noted. 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 Patient has had some degree of chronic interpersonal discord and reactivity chronic self-esteem issues Substance History: None Trauma History: neg Coding Level of Care Code Est Pt Level 3 (72978) Therapy 30m w/E&M (80735) Diagnoses Generalized anxiety disorder F41.1 Depression, major, severe recurrence F33.2
== END 2024-07-24 14:50 | disposition home or self-care (01) ==
LOC: HO.HOP 13:49
PROVIDERS: PCP Internal Medicine; Visit Provider Psychiatry & Neurology Psychiatry
DX: F41.1 Generalized anxiety disorder (principal); F33.2 Major depressive disorder, recurrent severe without psychotic features
CPT/HCPCS: 90833; 99213

== ENCOUNTER → 2024-07-24 13:49 | Outpatient (BNVA) | payer MEDICARE, OTHER, SELFPAY | PROVIDERS: PCP Internal Medicine; Visit Provider Psychiatry & Neurology Psychiatry | DX: F41.1 Generalized anxiety disorder (principal); F33.2 Major depressive disorder, recurrent severe without psychotic features; Z71.89 Other specified counseling | CPT/HCPCS: 99212 ==

== ENCOUNTER 2024-09-17 11:03 | Outpatient (REF) | payer MEDICARE, OTHER, SELFPAY ==
[2024-09-17 13:18] LABS: Iron 98 mcg/dL (30-160); Percent Iron Saturation 31 % (15-50); Total Iron Binding Capacity 317 mcg/dL (228-428); Unsaturated Iron Binding 219 ug/dL
[2024-09-17 13:32] LABS: Ferritin 54 ng/mL (10-250)
--- OUTSIDE RECORDS SUMMARY | 2024-09-17 16:42 | XMS_ITS | Clinical Summary ---
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 Name Role Phone Unavailable Primary Care Provider Unavailabl e Social History Tobacco Use Types Packs/Day Years Used Date Smoking Tobacco: Never Assessed Sex and Gender Information Value Date Recorded Sex Assigned at Not on file Gender Identity Not on file Sexual Orientation Not on file Plan of Treatment Health Maintenance Due Date Last Done Comments Breast Cancer Screening 1950 Pneumococcal Vaccine: 65+ Ye ars (1 of 2 - PCV) 02/22/1956 DTaP,Tdap,and Td Vaccines (1 - Tdap) 1969 Zoster Vaccines (1 of 2) 02/22/2000 Colorectal Cancer Screening: Colonoscopy 07/24/2022 Depression Screening 07/24/2022 Falls Risk Assessment 07/24/2022 Hepatitis C Screening 07/24/2022 Osteoporosis Screening (Bone Density Screening) 07/24/2022 Social Influencers of Health Screening 07/24/2022 COVID-19 Vaccine ( - 2023-2 5 season) 2024 Influenza Vaccine (#1) 2024 RSV Immunization Patients 60 + Years Old (1 - 1-dose 75+ series) 2025 HIB Vaccines Aged Out No longer eligi ble based on patient's age to complete this topic HPV Vaccines Aged Out No longer eligi ble based on patient's age to complete this topic Hepatitis A Vaccines Aged Out No long er eligible based on patient's age to complete this topic Hepatitis B Vaccines Aged Out No long er eligible based on patient's age to complete this topic IPV Vaccines Aged Out No longer eligi ble based on patient's age to complete this topic MMR Vaccines Aged Out No longer eligi ble based on patient's age to complete this topic Meningococcal ACWY Vaccine Aged Out N o longer eligible based on patient's age to complete this topic RSV Immunization Patients Un gurmeet 20 months Aged Out No longer eligible b ased on patient's age to complete this topic Varicella Vaccines Aged Out No longer eligible based on patient's age to complete this topic
== END 2024-09-17 11:04 | disposition home or self-care (01) ==
LOC: HO.LAB 11:03
PROVIDERS: PCP Internal Medicine; Visit Provider Psychiatry & Neurology Psychiatry
DX: F33.2 Major depressive disorder, recurrent severe without psychotic features (principal); G25.81 Restless legs syndrome; F44.1 Dissociative fugue
CPT/HCPCS: 36415; 82728; 83540; 99212

== ENCOUNTER 2024-09-17 11:03 | Outpatient (AMB) | payer MEDICARE, OTHER, SELFPAY ==
--- NOTE | 2024-09-17 11:43 | A.OFFPSYCH_ITS ---
Intake Intake Visit Reasons: DEPRESSION Allergies sulfamethoxazole [From Bactrim] Allergy (Mild, Verified 07/17/24 13:23) Rash trimethoprim [From Bactrim] Allergy (Mild, Verified 07/17/24 13:23) Rash Medication List - Last Reconciled 09/17/24 by Jorje La MD aspirin 81 mg PO DAILY atenolol 100 mg (2 x 50 mg) PO DAILY 90 days atorvastatin 80 mg PO DAILY buspirone 15 mg PO BID 30 days cholecalciferol (vitamin D3) 50 mcg PO DAILY diazepam 2 - 4 mg (1 - 2 x 2 mg) PO DAILY PRN ezetimibe 10 mg PO DAILY gabapentin 300 mg PO ONCE losartan 50 mg PO DAILY mecobalamin (vitamin B12) 2,000 mcg PO DAILY mirtazapine 45 mg PO BEDTIME multivitamin 1 tab PO DAILY nitroglycerin 0.4 mg sublingual Q5M PRN omeprazole 40 mg PO BID oxycodone-acetaminophen 5-325 mg 1 tab PO QID PRN trospium 20 mg PO ONCE HPI- Psychiatric Chief Complaint: DEPRESSION HPI Narrative: Patient seen psychiatric follow-up with her . She does express anxiety and depressive symptoms. Some difficulty at time with sleep. She has been on mirtazapine 45 mg at bedtime gabapentin 300 mg at bedtime rare use of low-dose Valium she is aware balance and increase fall risk with medication. She does have chronic back pain and gait disturbance status post spinal surgery status post spinal implant. The patient is in a frequent state of obsessional rumination of a negative type whether it be regarding personal and family issues or issues related to the political environment Past Psychiatric History: hx hospitalization recurrent depression anxiety hx hospitalization and tms Mental Status Exam Mental Status Exam Patient Appearance: Well Grooomed Patient Orientation: Person, Place, Time and Situation Level of Consciousness: Awake and Appropriate Patient Behavior: Appropriate Mood Description: Depressed and Anxious Affect Description: Appropriate and Constricted Patient Cognition Impaired: No Ability to Follow Directions: Good Speech Pattern: Clear Memory Description: Intact Hallucinations: None Delusions: Not Present Thought Process: Intact and Goal Oriented Thought Content: positive for Obsessional Thoughts, positive for Goal Oriented, positive for Preoccupation, negative for Suicidal Ideation or negative for Homicidal Ideation Depressive Symptoms: Increased Anxiety, Loss of Int. in Activity, Loss of Energy and Back Pain Judgement: Fair Judgement and Insight: A sense of hopelessness encouraged adaptive strategies which she did seem to take in Assessment and Plan Assessment & Plan (1) Depression, major, severe recurrence: Status: Acute Code(s): F33.2 - Major depressive disorder, recurrent severe without psychotic features (2) Generalized anxiety disorder: Status: Acute Code(s): F41.1 - Generalized anxiety disorder (3) Restless leg syndrome: Status: Acute Code(s): G25.81 - Restless legs syndrome Plan Check iron level has question of restless leg again discussed fall risk with kory abapentin she does take oxycodone earlier in the day. Encourage light box 1/2 hour in the morning increase buspirone to 15 mg 2 times a day as tolerated warned regarding balance issues. Strongly urged abdominal breathing at least 2 times a day to decrease anxiety irritability. If not better after 1-2 weeks discussed trying to lower mirtazapine in case it is being overly stimulated at 45 mg Follow-up 4-8weeks Iron levels noted to be unremarkable Medications: Changed From buspirone 1/2 tab 2 x day x 2 weeks then 1 tab 2 x day 5 - 10 mg (0.5 - 1 x 10 mg) PO BID 60 tabs 2RF To buspirone 15 mg PO BID 30 days 60 tabs 2RF Orders: Orders IRON PROFILE Today F33.2 - Major depressive disorder, recurrent severe without psychotic features, G25.81 - Restless legs syndrome Ferritin Today G25.81 - Restless legs syndrome Counseling and coordination of Care Pt. Self Management counseling: Muscle relaxation, Sleep hygiene and Behavior activation Details-Self Mgmt counseling: Also discussed limiting social media and trying to limit negative preoccupations and media Medication management counseling: Effectiveness, Side effects and Dosing range Diagnosis and Prognosis Counseling: Impact of diagnosis on life functions and Adequacy of current interventions Details: I spent [42] minutes reviewing the record, seeing the patient and documenting in the medical record. Counseling provided to the patient/caregiver as outlined below. Addressed patient/caregiver concerns regarding current medication regime including effecti ve adherence. Addressed patient/caregiver concerns regarding diagnosis and prognosis including accuracy of diagnosis, prognosis over time, impact of diagnosis. Addressed patient/caregiver concerns regarding impact of recent stressors. [facility] Medical History (Updated 09/17/24 @ 11:40 by Jorje La MD) Generalized anxiety disorder Depression, major, severe recurrence Other and unspecified hyperlipidemia Essential hypertension Atherosclerotic cardiovascular disease Surgical History S/P insertion of spinal cord stimulator (~11/2021) History of cardiac catheterization Family History Father No problems noted. Mother No problems noted. Social History (Updated 07/17/24 @ 13:[address] 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 Patient has had some degree of chronic interpersonal discord and reactivity chronic self-esteem issues Substance History: None Trauma History: neg Coding Level of Care Code Est Pt Level 3 (56742) Therapy 30m w/E&M (65410) Diagnoses Depression, major, severe recurrence F33.2 Generalized anxiety disorder F41.1 Restless leg syndrome G25.81
== END 2024-09-17 12:13 | disposition home or self-care (01) ==
LOC: HO.HOP 11:03
PROVIDERS: PCP Internal Medicine; Visit Provider Psychiatry & Neurology Psychiatry
DX: F33.2 Major depressive disorder, recurrent severe without psychotic features (principal); F41.1 Generalized anxiety disorder; G25.81 Restless legs syndrome
CPT/HCPCS: 90833; 99213

== ENCOUNTER 2024-10-29 12:33 | Outpatient (AMB) | payer MEDICARE, OTHER, SELFPAY ==
--- NOTE | 2024-10-29 13:02 | A.OFFPSYCH_ITS ---
Intake Intake Visit Reasons: depression Allergies sulfamethoxazole [From Bactrim] Allergy (Mild, Verified 07/17/24 13:23) Rash trimethoprim [From Bactrim] Allergy (Mild, Verified 07/17/24 13:23) Rash Medication List - Last Reconciled 10/29/24 by Jorje La MD aspirin 81 mg PO DAILY atenolol 100 mg (2 x 50 mg) PO DAILY 90 days atorvastatin 80 mg PO DAILY buspirone 15 mg PO BID 30 days cholecalciferol (vitamin D3) 50 mcg PO DAILY diazepam 2 - 4 mg (1 - 2 x 2 mg) PO DAILY PRN ezetimibe 10 mg PO DAILY gabapentin 300 mg PO ONCE losartan 50 mg PO DAILY mecobalamin (vitamin B12) 2,000 mcg PO DAILY mirtazapine 45 mg PO BEDTIME multivitamin 1 tab PO DAILY nitroglycerin 0.4 mg sublingual Q5M PRN omeprazole 40 mg PO BID oxycodone-acetaminophen 5-325 mg 1 tab PO QID PRN trospium 20 mg PO ONCE HPI- Psychiatric Chief Complaint: depression HPI Narrative: Patient seen psychiatric follow-up with her . Patient has developed a somewhat better relationship her daughter has some degree of chronic anxiety and irritability. Does tend to get somewhat down at times irritated with others dealing with chronic pain and other times feels guilty about her own reactivity. In general has been okay she is aware of limitations and potential risks of low-dose gabapentin with oxycodone Past Psychiatric History: hx hospitalization recurrent depression anxiety hx hospitalization and tms Mental Status Exam Mental Status Exam Patient Appearance: Well Grooomed Patient Orientation: Person, Place, Time and Situation Level of Consciousness: Awake and Appropriate Patient Behavior: Appropriate Mood Description: Depressed and Anxious Affect Description: Appropriate and Constricted Patient Cognition Impaired: No Ability to Follow Directions: Good Speech Pattern: Clear Memory Description: Intact Hallucinations: None Delusions: Not Present Thought Process: Intact and Goal Oriented Thought Content: positive for Obsessional Thoughts, positive for Goal Oriented, positive for Preoccupation, negative for Suicidal Ideation or negative for Homicidal Ideation Depressive Symptoms: Increased Anxiety, Loss of Int. in Activity, Loss of Energy and Back Pain Judgement: Fair Judgement and Insight: A sense of hopelessness encouraged adaptive strategies which she did seem to take in Assessment and Plan Assessment & Plan (1) Major depressive disorder, recurrent episode, in partial remission with seasonal pattern: Status: Acute Code(s): F33.41 - Major depressive disorder, recurrent, in partial remission (2) Generalized anxiety disorder: Status: Acute Code(s): F41.1 - Generalized anxiety disorder Plan Pt doing somewhat better discussed orthostatic hypotension ? losartan cont buspar increase dose continue mirtazapine encourage Meuse headband DBT consider EMDR daily meditation/react relaxation skills Medications: Refilled buspirone 15 mg PO BID 180 tabs 1RF 30 days mirtazapine 45 mg PO BEDTIME 90 tabs 1RF Counseling and coordination of Care Medication management counseling: Effectiveness, Side effects and Dosing range Details-Med Mgmt counseling: Reviewed risks benefits alternatives Diagnosis and Prognosis Counseling: Impact of diagnosis on life functions and Adequacy of current interventions Details: I spent [] minutes reviewing the record, seeing the patient and documenting in the medical record. Counseling provided to the patient/caregiver as outlined below. Addressed patient/caregiver concerns regarding current medication regime including effective adherence. Addressed patient/caregiver concerns regarding diagnosis and prognosis including accuracy of diagnosis, prognosis over time, impact of diagnosis. Addressed patient/caregiver concerns regarding impact of recent stressors. [facility] Medical History (Updated 09/17/24 @ 11:40 by Jorje La MD) Generalized anxiety disorder Depression, major, severe recurrence Other and unspecified hyperlipidemia Essential hypertension Atherosclerotic cardiovascular disease Surgical History S/P insertion of spinal cord stimulator (~11/2021) History of cardiac catheterization Family History Father No problems noted. Mother No problems noted. 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 Patient has had some degree of chronic interpersonal discord and reactivity chronic self-esteem issues Substance History: None Trauma History: neg Coding Level of Care Code Est Pt Level 3 (89131) Therapy 30m w/E&M (93625) Diagnoses Major depressive disorder, recurrent episode, in partial remission with seasonal pattern F33.41 Generalized anxiety disorder F41.1
--- OUTSIDE RECORDS SUMMARY | 2024-10-29 14:04 | XMS_ITS | Clinical Summary ---
Author Organization [facility] [place] [address] Care Team Providers Care Coffee Taster Name Role Phone Unavailable Primary Care Provider Unavailabl e Social History Tobacco Use Types Packs/Day Years Used Date Smoking Tobacco: Never Assessed Comments Unknown Sex and Gender Information Value Date Recorded Sex Assigned at Not on file Legal Sex Female 6:50 PM EST Gender Identity Not on file Sexual Orientation Not on file Plan of Treatment Health Maintenance Due Date Last Done Comments Breast Cancer Screening 1950 DTaP,Tdap,and Td Vaccines (1 - Tdap) 1969 Pneumococcal Vaccine: 50+ Ye ars (1 of 2 - PCV) 1969 Zoster Vaccines (1 of 2) 02/22/2000 [...] patient's age to complete this topic Meningococcal B Vacine Aged Out No lo nger eligible based on patient's age to complete this topic RSV Immunization Patients Un gurmeet 20 months Aged Out No longer eligible b ased on patient's age to complete this topic Varicella Vaccines Aged Out No longer eligible based on patient's age to complete this topic
== END 2024-10-29 15:20 | disposition home or self-care (01) ==
LOC: HO.HOP 12:33
PROVIDERS: PCP Internal Medicine; Visit Provider Psychiatry & Neurology Psychiatry
DX: F33.41 Major depressive disorder, recurrent, in partial remission (principal); F41.1 Generalized anxiety disorder
CPT/HCPCS: 90833; 99213

== ENCOUNTER → 2024-10-29 12:33 | Outpatient (BNVA) | payer MEDICARE, OTHER, SELFPAY | PROVIDERS: PCP Internal Medicine; Visit Provider Psychiatry & Neurology Psychiatry | DX: F33.41 Major depressive disorder, recurrent, in partial remission (principal); F41.1 Generalized anxiety disorder | CPT/HCPCS: 99212 ==

== ENCOUNTER 2025-01-17 11:24 | Outpatient (AMB) | payer MEDICARE, OTHER, SELFPAY ==
--- OUTSIDE RECORDS SUMMARY | 2025-01-17 11:45 | XMS_ITS | Clinical Summary ---
Author Organization [facility] Address [address] [place] [address] Care Team Providers Care Coremaker Pipe Name Role Phone Unavailable Primary Care Provider [...] Vaccine ( - 2023-2 5 season) 2024 RSV Immunization Adult Patie nts (1 - 1-dose 75+ series) 2025 Influenza Vaccine (Season Ended) 2025 HIB Vaccines Aged Out No longer [...] age to complete this topic Meningococcal B Vaccine Aged Out No l onger eligible based on patient's age to complete this topic RSV Immunization Patients Un gurmeet 20 months Aged Out No longer eligible b ased on patient's age to complete this topic Varicella Vaccines Aged Out No longer eligible based on patient's age to complete this topic
--- NOTE | 2025-01-17 12:11 | MHC.OFFVISPS ---
Intake Intake Visit Reasons: depression Allergies sulfamethoxazole (From Bactrim) Allergy (Mild, Verified 07/17/24 13:23) Rash trimethoprim (From Bactrim) Allergy (Mild, Verified 07/17/24 13:23) Rash HPI- Psychiatric Chief Complaint: depression HPI Narrative: Patient having more depressive symptoms in the context of chronic pain that is just debilitating for her. Spinal stimulator has not been effective. On mirtazapine gabapentin HS limited during the day by sedation and multiple effects when added with narcotic that she uses for pain No SI but decreased quality of life had also been helped in the past by TMS Past Psychiatric History: hx hospitalization recurrent depression anxiety hx hospitalization and tms Mental Status Exam Mental Status Exam Patient Appearance: Well Grooomed Patient Orientation: Person, Place, Time and Situation Level of Consciousness: Awake and Appropriate Patient Behavior: Appropriate Mood Description: Depressed and Anxious Affect Description: Withdrawn, Appropriate and Constricted Patient Cognition Impaired: No Ability to Follow Directions: Good Speech Pattern: Clear Memory Description: Intact Hallucinations: None Delusions: Not Present Thought Process: Intact and Goal Oriented Thought Content: positive for Obsessional Thoughts, positive for Goal Oriented, positive for Preoccupation, negative for Suicidal Ideation or negative for Homicidal Ideation Depressive Symptoms: Increased Anxiety, Loss of Int. in Activity, Loss of Energy and Back Pain Judgement: Fair Judgement and Insight: Ongoing sense of hopelessness and helplessness denies any active SI Assessment and Plan Assessment & Plan (1) Depression, major, severe recurrence: Status: Acute Code(s): F33.2 - Major depressive disorder, recurrent severe without psychotic features (2) Generalized anxiety disorder: Status: Acute Code(s): F41.1 - Generalized anxiety disorder (3) Chronic back pain greater than 3 months duration: Status: Acute Code(s): M54.9 - Dorsalgia, unspecified; G89.29 - Other chronic pain Plan Patient referred to pain management and neuro spine referral significant sense of hopelessness and helplessness. Could consider Cymbalta might benefit from pain management has often not done well on antidepressant consideration could be given to antipsychotic for augmentation such as Rexulti or Abilify Orders: Referrals Pain Management Referral M54.9 - Dorsalgia, unspecified, G89.29 - Other chronic pain, Z98.1 - Arthrodesis status, Z98.890 - Other specified postprocedural states Neuro Spine Referral M54.9 - Dorsalgia, unspecified, G89.29 - Other chronic pain, Z98.1 - Arthrodesis status, Z98.890 - Other specified postprocedural states, G25.81 - Restless legs syndrome, Z96.89 - Presence of other specified functional implants Counseling and coordination of Care Details-Self Mgmt counseling: Issues related to managing chronic pain and its impact on her mood Medication management counseling: Effectiveness, Side effects and Dosing range Diagnosis and Prognosis Counseling: Accuracy of diagnosis, Prognosis over time, Impact of diagnosis on life functions and Adequacy of current interventions Details: I spent [40] minutes reviewing the record, seeing the patient and documenting in the medical record. Counseling provided to the patient/caregiver as outlined below. Addressed patient/caregiver concerns regarding current medication regime including effective adherence. Addressed patient/caregiver concerns regarding diagnosis and prognosis including accuracy of diagnosis, prognosis over time, impact of diagnosis. Addressed patient/caregiver concerns regarding impact of recent stressors. [facility] Medical History (Updated 01/17/25 @ 11:52 by Jorje La MD) Generalized anxiety disorder Depression, major, severe recurrence Other and unspecified hyperlipidemia Essential hypertension Atherosclerotic cardiovascular disease Surgical History (Updated 01/17/25 @ 12:09 by Jorje La MD) Status post laminectomy S/P lumbar fusion S/P insertion of spinal cord stimulator (~11/2021) History of cardiac catheterization Family History Father No problems noted. Mother No problems noted. 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 Patient has had some degree of chronic interpersonal discord and reactivity chronic self-esteem issues Substance History: None Trauma History: neg Coding Level of Care Code Est Pt Level 3 (76279) Therapy 30m w/E&M (10967) Diagnoses Depression, major, severe recurrence F33.2 Generalized anxiety disorder F41.1 Chronic back pain greater than 3 months duration M54.9; G89.29
== END 2025-01-17 11:27 | disposition home or self-care (01) ==
LOC: HO.HOP 11:24
PROVIDERS: PCP Internal Medicine; Visit Provider Psychiatry & Neurology Psychiatry
DX: F33.2 Major depressive disorder, recurrent severe without psychotic features (principal); F41.1 Generalized anxiety disorder; M54.9 Dorsalgia, unspecified; G89.29 Other chronic pain
CPT/HCPCS: 90833; 99213

== ENCOUNTER → 2025-01-17 11:24 | Outpatient (BNVA) | payer MEDICARE, OTHER, SELFPAY | PROVIDERS: PCP Internal Medicine; Visit Provider Psychiatry & Neurology Psychiatry | DX: F33.2 Major depressive disorder, recurrent severe without psychotic features (principal); F41.1 Generalized anxiety disorder; M54.9 Dorsalgia, unspecified; G89.29 Other chronic pain; G25.81 Restless legs syndrome; Z98.1 Arthrodesis status; Z71.89 Other specified counseling | CPT/HCPCS: 99212 ==

== ENCOUNTER 2025-03-21 10:08 | Outpatient (AMB) | payer MEDICARE, OTHER, SELFPAY ==
[2025-03-21 10:32] VITALS: BP 140/68; PULSE 88; BMI 25.3
--- NOTE | 2025-03-21 10:32 | MHC.OFFVIS ---
Vital Signs 03/21/25 10:32 Height 5 ft 5 in Weight 152 lb 1.903 oz BMI 25.3 BP 140/68 H Blood Pressure Location Lt brachial Position Sitting Pulse 88 Pulse Source Monitor Intake Visit Reasons: 6 month f/up Allergies sulfamethoxazole (From Bactrim) Allergy (Mild, Verified 07/17/24 13:23) Rash trimethoprim (From Bactrim) Allergy (Mild, Verified 07/17/24 13:23) Rash Medication List - Last Reconciled 03/21/25 by Ruddy Oconnell MD aspirin 81 mg PO DAILY atenolol 100 mg (2 x 50 mg) PO DAILY 90 days atorvastatin 80 mg PO DAILY buspirone 15 mg PO BID 30 days cholecalciferol (vitamin D3) 50 mcg PO DAILY diazepam 2 - 4 mg (1 - 2 x 2 mg) PO DAILY PRN ezetimibe 10 mg PO DAILY gabapentin 100 - 300 mg (1 - 3 x 100 mg) PO BEDTIME 30 days losartan 50 mg PO DAILY mecobalamin (vitamin B12) 2,000 mcg PO DAILY mirtazapine 45 mg PO BEDTIME multivitamin 1 tab PO DAILY nitroglycerin 0.4 mg sublingual Q5M PRN omeprazole 40 mg PO BID oxycodone-acetaminophen 5-325 mg 1 tab PO QID PRN trospium 20 mg PO ONCE HPI Comments Details: Ximena returns for follow-up. To recall, she has a history of coronary disease and underwent cardiac catheterization in 2019, that showed LAD as well as RCA stenosis. After that, she has had chest pains at different times and has undergone noninvasive workup, but they have essentially been unremarkable. Since last seen, she states that she feels fine from cardiac. No anginal-type symptoms. She does however, have a lot of musculoskeletal pains and she also has spinal cord stimulator. Hence certainly possible that some for pains could be rather noncardiac. [facility] Medical History (Updated 01/17/25 @ 11:52 by Jorje La MD) Generalized anxiety disorder Depression, major, severe recurrence Other and unspecified hyperlipidemia Essential hypertension Atherosclerotic cardiovascular disease Surgical History (Updated 01/17/25 @ 12:09 by Jorje La MD) Status post laminectomy S/P lumbar fusion S/P insertion of spinal cord stimulator (~11/2021) History of cardiac catheterization Family History Father No problems noted. Mother No problems noted. Social History (Updated 07/17/24 @ 13:25 by Jerilyn Asencio CMA) Alcohol intake: never Patient Tobacco Use Status: Never used Tobacco Review of Systems Const Reports body aches and Denies weakness ENT Denies dizziness Card Denies chest pain, Denies chest pain with activity, Denies syncope, Denies rapid heart rate, Denies pedal edema, Denies edema, Denies leg edema, Denies lightheadedness, Denies palpitations, Denies dyspnea, Denies dyspnea on exertion and Denies orthopnea Resp Denies cough, Denies dyspnea and Denies dyspnea on exertion GI Denies hematochezia and Denies change in stool character Musc Denies abnormal gait, Denies muscle cramps, Denies muscle weakness, Denies numbness, Denies radiating pain into limb and Denies tingling Neuro Denies abnormal gait, Denies dizziness, Denies syncope, Denies numbness, Denies tingling and Denies weakness Endo Denies palpitations Physical Exam Vital Signs: Last Vital Signs Pulse 88 03/21/25 10:32 BP 140/68 H 03/21/25 10:32 BMI result Body Mass Index 25.3 Const General: comfortable and no acute distress Orientation/consciousness: patient oriented x3 HEENT Other: Unremarkable Head: Yes normal to inspection Neck Neck: Yes normal visual inspection Chest Chest palpation & inspection: normal inspection of the chest Resp Auscultation: clear to auscultation bilaterally Cardio Palpation: normal PMI Heart sounds: S1 normal heart sound present, S2 normal heart sound present, no gallops, no murmurs and no rubs GI Palpation (GI): Soft to palpation Back/Spine/Pelvis Other: unremarkable Skin General skin exam: no rashes or lesions noted Neuro General: patient oriented x3 Extrem General: Yes normal to inspection Psych Mental Status: mental status grossly normal Office Procedures EKG Details: EKG with underlying sinus rhythm at 66/Min; no ischemic changes; [place] [id number], Complete Assessment & Plan Assessment & Plan (1) Atherosclerotic cardiovascular disease: Code(s): I25.10 - Atherosclerotic heart disease of [place] coronary artery without angina pectoris Category: Medical Plan: In the past, she had inferior wall ischemia on stress testing. Cardiac catheterization had shown 40% stenosis in the mid LAD and 70% stenosis in the non-dominant mid RCA. She has had many stress test at different times. In the most recent stress test from 05/2024, normal myocardial perfusion. In another study from 2022 at [facility], again no perfusion abnormalities. In the recent echocardiogram, low normal LVEF at 55%. Inferior/inferoseptal hypokinesis. Similar to prior study. Overall, stable coronary disease. Unclear if chest pains or cardiac versus musculoskeletal and could be either. Any case, resolved at this time. Continue the current medical regimen including aspirin, beta-blockers, statins, sublingual nitroglycerin as needed. Last LDL cholesterol 60 mg/dL. She will contact us as necessary. (2) Essential hypertension: Code(s): I10 - Essential (primary) hypertension Category: Medical Plan: Stable. No changes. (3) Other and unspecified hyperlipidemia: Code(s): E78.5 - Hyperlipidemia, unspecified Category: Medical Plan: Continue statins. (4) JACOB (obstructive sleep apnea): Code(s): G47.33 - Obstructive sleep apnea (adult) (pediatric) Category: Medical Plan: Not able to tolerate CPAP. Plan Discussion Notes I discussed with the patient the importance of continuing her current medications, including aspirin, a cholesterol-lowering agent, atenolol, and losartan, to manage her cardiovascular health and hypertension. We talked about the need to monitor her blood pressure and to report any significant changes. We also reviewed her neuropathy symptoms and the potential need to explore alternative treatments if gabapentin's side effects are problematic. I advised her to adjust her sleeping positions to help alleviate symptoms and to use her walker for support. I recommended follow-up in one year and instructed her to contact me if any new symptoms develop. Seek emergency care as appropriate. Patient was informed and verbally consented to the use of an ambient scribe for clinic note documentation during this visit. Patient Instructions: - Continue taking aspirin, cholesterol medication, atenolol, and losartan as prescribed. - Monitor blood pressure regularly and report any significant changes. - Adjust sleeping positions to reduce neuropathy symptoms. - Discuss alternative neuropathy treatments with your primary care provider if needed. - Follow up in 1 year and contact if new symptoms arise. Coding Level of Care Code Est Pt Level 4 (28998) Complex EM visit Add On G2211 Diagnoses Atherosclerotic cardiovascular disease I25.10 Essential hypertension I10 Other and unspecified hyperlipidemia E78.5 JACOB (obstructive sleep apnea) G47.33 CPT Codes EKG - CPT: 69257-[id number], Complete ([id number])
--- OUTSIDE RECORDS SUMMARY | 2025-03-21 10:51 | XMS_ITS | Encounter Summary ---
Author Organization [facility] Address [address] [place] [address] Phone Care Team Providers Care Leaf Tinner Name Role Phone Elizabeth Moore MD Primary Care Provider Encounter Details Date Type Department Care Team ([facility] st Contact Info) Description 05/26/2020 Transcribe Orders [facility] [address] [place] [id number] [address] Holloway MD [address] [place] [id number] Social History Tobacco Use Types Packs/Day Years Used Date Smoking Tobacco: Former Cigarettes Q uit: 1998 Smokeless Tobacco: Never Comments Unknown Sex and Gender Information Value Date Recorded Sex Assigned at Not on file Legal Sex Female 10:02 PM EDT Gender Identity Not on file Sexual Orientation Not on file documented as of this encounter Plan of Treatment Not on file documented as of this encounter Visit Diagnoses Not on filedocumented in this encounter Care Teams Leaf Tinner Relationship Specialty Start Date End Date Elizabeth Moore MD [address] [place] [address] PCP - General Internal Medicine 09/21/17 documented as of this encounter Additional Source Comments The information contained in this document represents components of the legal health record. It is not the complete legal health record.[facility]
--- OUTSIDE RECORDS SUMMARY | 2025-03-21 10:51 | XMS_ITS | Clinical Summary ---
Author Organization [facility] Address [address] [place] [address] Care Team Providers Care Supervisor Net Making Name Role Phone Unavailable Primary Care Provider Unavailabl e Social History Tobacco Use Types Packs/Day Years Used Date Smoking Tobacco: Never Assessed Comments Unknown Sex and Gender Information Value Date Recorded Sex Assigned at Not on file Legal Sex Female 6:50 PM EST Gender Identity Not on file Sexual Orientation Not on file Plan of Treatment Health Maintenance Due Date Last Done Comments DTaP,Tdap,and Td Vaccines (1 - Tdap) 1969 Pneumococcal Vaccine: 50+ Ye ars (1 of 2 - PCV) 1969 Zoster Vaccines (1 of 2) 02/22/2000 Colorectal Cancer Screening: Colonoscopy 07/24/2022 Falls Risk Assessment 07/24/2022 Hepatitis C Screening 07/24/2022 Osteoporosis Screening (Bone Density Screening) 07/24/2022 Social Influencers of Health Screening 07/24/2022 COVID-19 Vaccine ( - 2023-2 5 season) 2024 Depression Screening 08/22/2024 RSV Immunization Adult Patie nts (1 - 1-dose 75+ series) 2025 Influenza Vaccine (#1) 2025 HIB Vaccines Aged Out No longer [...]
== END 2025-03-21 10:54 | disposition home or self-care (01) ==
LOC: HO.HCS 10:08
PROVIDERS: PCP Internal Medicine; Visit Provider Internal Medicine
DX: I25.10 Atherosclerotic heart disease of native coronary artery without angina pectoris (principal); I10 Essential (primary) hypertension; E78.5 Hyperlipidemia, unspecified; G47.33 Obstructive sleep apnea (adult) (pediatric)
CPT/HCPCS: 93010; 99214; G2211

== ENCOUNTER → 2025-03-21 10:08 | Outpatient (BNVA) | payer MEDICARE, OTHER, SELFPAY | PROVIDERS: PCP Internal Medicine; Visit Provider Internal Medicine | DX: I25.10 Atherosclerotic heart disease of native coronary artery without angina pectoris (principal); I10 Essential (primary) hypertension; E78.5 Hyperlipidemia, unspecified; G47.33 Obstructive sleep apnea (adult) (pediatric) | CPT/HCPCS: 93005; 99212 ==

== ENCOUNTER 2025-03-26 11:24 | Outpatient (REF) | payer MEDICARE, OTHER, SELFPAY ==
[2025-03-26 14:40] LABS: Alanine Aminotransferase 50 U/L (0-31); Albumin Level 4.8 g/dL (3.5-5.0); Alkaline Phosphatase 101 U/L (39-117); Anion Gap 11 (12-20); Aspartate Amino Transferase 32 U/L (5-31); Blood Urea Nitrogen 15 mg/dL (9-16); Calcium 8.9 mg/dL (8.4-10.2); Carbon Dioxide 29 mmol/L (22-29); Chloride 106 mmol/L (96-108); Estimated Glomerular Filt Rate > 60; Potassium 4.2 mmol/L (3.3-5.1); Sodium 142 mmol/L (135-145); Total Protein 7.1 g/dL (6.5-8.0)
[2025-03-26 14:54] LABS: Folate 14.4 ng/mL (> or = 4.0); Vitamin B12 1981 pg/mL (200-900)
== END 2025-03-26 11:25 | disposition home or self-care (01) ==
LOC: HO.LAB 11:24
PROVIDERS: PCP Internal Medicine; Visit Provider Psychiatry & Neurology Psychiatry
DX: F33.41 Major depressive disorder, recurrent, in partial remission (principal); G62.9 Polyneuropathy, unspecified
CPT/HCPCS: 36415; 80053; 82607; 82746; 84443

== ENCOUNTER 2025-04-25 10:19 | Emergency (ER) | payer MEDICARE, OTHER, SELFPAY ==
--- NOTE | ~2025-04-25 | XR_ITS ---
EXAMINATION: XR LUMBOSACRAL SPINE CLINICAL INFORMATION: pain since fall 2 days ago, hx fusion COMPARISON: None available. TECHNIQUE: Three views of the lumbosacral spine. FINDINGS: There is a mild to moderate levoconvex scoliosis, apex at L4. There is a normal lumbar lordosis. There is a 4 mm degenerative retrolisthesis of L2 on L3, a 2 mm anterolisthesis of L3 on L4, and a 7 mm anterolisthesis of L4 on L5. There is a trace anterolisthesis of L5 on S1. Line there is no fracture, compression deformity, or suspicious bone lesion identified. There is multilevel severe disc degeneration, most significant at L2-3 where there is sclerosis of the endplates. There are advanced multilevel degenerative facet changes spanning the entire lumbar region. There is a left-sided spinal stimulator in place with leads extending into the thoracic region. There are vascular calcifications within the soft tissues. XR/XR lumbar spine 2-3V IMPRESSION: 1. No definite acute radiographic findings of the lumbar spine. 2. Advanced lumbar spondylosis and levoconvex scoliosis. Electronically signed by: Deep Carter MD 04/25/2025 11:35 AM EDT
[2025-04-25 11:09] VITALS: BP 171/99; PULSE 82; RESP 20; TEMP 37; O2SAT 96; BMI 24.7
--- NOTE | 2025-04-25 11:11 | ED.GENADULT ---
HPI - General Adult General Chief complaint: Fall Stated complaint: fall back inj Time Seen by Provider: 04/25/25 15:41 Source: patient, family and old records reviewed Mode of arrival: ambulatory Limitations: no limitations History of Present Illness ED Provider: GARFIELD HPI narrative: 75 yo female with PMH of depression, anxiety, HLD, HTN, not on blood thinners with a hx of peripheral neuropathy, spinal fusions and stimulator with issues between L2-L4. She notes 4 days ago she felt a twinge and pain on L back after helping lift a ladder out of pool. She has oxycodone, valium and gabapentin at home which she is comfrortable taking. She is not on thinners, has no b/b incontinence or saddle anesthesia she has chronic urinary incontinence and denies any new symptoms to me in front of . She tripped going up the stairs no falls but landed hard into wall no head injury or LOC. no hx of osteoporosis or osteopenia she was sent by PCP to rule out compression fx. MD complaint: low back pain/injury Onset (ago): day(s) (4) Location: back Radiation: non-radiation Severity: severe Quality: constant Pain Consistency: constant Relieving factors: none Exacerbating factors: movement Associated symptoms: denies other symptoms Treatments prior to arrival: other Related Data Home Medications ?Medication ?Instructions ?Recorded ?Confirmed aspirin 81 mg tablet,delayed 81 mg PO DAILY 09/15/20 03/21/25 release cholecalciferol (vitamin D3) 50 50 mcg PO DAILY 09/15/20 03/21/25 mcg (2,000 unit) capsule multivitamin 1 tab PO DAILY 09/15/20 03/21/25 oxycodone-acetaminophen 5 mg-325 1 tab PO QID PRN 12/14/22 03/21/25 mg tablet mecobalamin (vitamin B12) 1,000 2,000 mcg PO DAILY 02/15/23 03/21/25 mcg lozenges omeprazole 40 mg capsule,delayed 40 mg PO BID 02/15/23 03/21/25 release losartan 50 mg tablet 50 mg PO DAILY 10/18/23 03/21/25 trospium 20 mg tablet 20 mg PO ONCE 07/17/24 03/21/25 Previous Rx's ?Medication ?Instructions ?Recorded ezetimibe 10 mg tablet 10 mg PO DAILY #90 tabs 05/02/24 atenolol 50 mg tablet 100 mg (2 x 50 mg) PO DAILY 90 06/28/24 days #180 tabs atorvastatin 80 mg tablet 80 mg PO DAILY #90 tabs 08/20/24 diazepam 2 mg tablet 2 - 4 mg (1 - 2 x 2 mg) PO DAILY 09/19/24 PRN anxiety #20 tabs mirtazapine 45 mg tablet 45 mg PO BEDTIME #90 tabs 10/29/24 gabapentin 100 mg capsule 100 - 300 mg (1 - 3 x 100 mg) PO 02/10/25 BEDTIME 30 days #90 caps buspirone 15 mg tablet 15 mg PO BID 30 days #180 tabs 03/20/25 nitroglycerin 0.4 mg sublingual 0.4 mg sublingual Q5M PRN chest 04/03/25 tablet pain #20 tabs Allergies Allergy/AdvReac Type Severity Reaction Status Date / Time sulfamethoxazole (From Allergy Mild Rash Verified 04/25/25 11:09 Bactrim) trimethoprim (From Bactrim) Allergy Mild Rash Verified 04/25/25 11:09 Review of Systems Review of Systems: Constitutional : No Weight loss, No Fever, No Chills, ENT/Mouth : No Hearing loss, No Ear Pain, No Nasal Congestion, No Sinus Pain, No Hoarseness, No sore throat, No Rhinorrhea, No Swallowing Difficulty Cardiovascular : No Chest Pain, No SOB Respiratory : No Cough, No Dyspnea Gastrointestinal : No Nausea, No Vomiting, No Diarrhea, No abdominal Pain, No Hematochezia, No Melena Genitourinary : No Dysuria, No Urinary Frequency, No Hematuria, No Urinary Incontinence, Musculoskeletal : positive back pain Skin : No Skin Lesions, No rash Neuro : No Weakness, No Numbness, No Paresthesias, no loss of bowel or bladder incontinence, no saddle anesthesia Yes all other systems are reviewed and are negative [facility] Past Medical History Attestation statement: The following information was validated with the patient. Source: old records reviewed Medical History Generalized anxiety disorder Depression, major, severe recurrence Other and unspecified hyperlipidemia Essential hypertension Atherosclerotic cardiovascular disease Surgical History Status post laminectomy S/P lumbar fusion S/P insertion of spinal cord stimulator (~11/2021) History of cardiac catheterization Family History Family History Father No problems noted. Mother No problems noted. Social History Social History Alcohol intake: never Patient Tobacco Use Status: Never used Tobacco Smoked in Last 30 Days: No Use of substances other than those prescribed or required for medical reasons: No Advance Directives: No Advance Directives Information Provided: Yes Physical Exam ED Vital Signs: Vital Signs - 24 hr 04/25/25 11:09 04/25/25 16:30 04/25/25 16:34 Temperature 98.6 F 98.6 F 98.6 F Pulse Rate 82 82 82 Respiratory Rate 20 20 20 Blood Pressure 171/99 H 171/99 H 171/99 H Pulse Oximetry 96 96 96 Oxygen Delivery Method Room Air BMI result Body Mass Index 24.7 Appearance: Alert. Oriented X3. No acute distress. Eyes: Pupils equal, round and reactive to light. ENT: Pharynx normal. Neck: Normal inspection. Neck supple. CVS: Normal heart rate and rhythm. Pulses normal. Respiratory: No respiratory distress. Breath sounds normal. Abdomen: Soft and nontender. Back: ttp along lower back Skin: Skin warm and dry. Normal skin color. Normal skin turgor. Extremities: No lower extremity edema. No calf ttp Neuro: Oriented X 3. No motor deficit. No sensory deficit. CN2-12 intact, L5 5/5 bilaterally, SILT inner thigh 2+ DTRs in achilles/patella, steady gait Course Course Course Narrative: This is a rapid medical exam performed by Shanda Jenkins NP: Additional HPI, ROS, PE not included below will be deferred to primary provider. Patient is a 75-year-old female with history of lumbar fusion, s/p insertion of spinal cord stimulator 11/2021, HTN, JACOB, cardiovascular disease, anxiety and depression presenting with complaint of low back pain and right shoulder pain. States 4 days ago pain began after removing pool ladder, then 2 days ago she fell going upstairs. Denies head strike or LOC, not anticoagulated. Sent by PCP who is in [place] to rule out compression fx. On percocet chronically. Plan: labs, xray Medical Decision Making Medical Decision Making MDM Narrative: 75 yo female with PMH of depression, anxiety, HLD, HTN, not on blood thinners with a hx of peripheral neuropathy, spinal fusions and stimulator with issues between L2-L4 now here s/p injury without cauda equina symptoms she is worred about compression fracture though no hx of osteoporosis/osteopenia. She has no other red flags she is NV intact and has normal gait at this time xrays and urine, declines further work up and will refer her to PCP. Differential Diagnosis Differential Diagnoses: The differential diagnosis associated with the presentation includes low back strain, compression fracture Admission/Observation Consideration of admission/observation: Escalation of care including admission/observation considered steady gait, refusing further imagings, labs, CT cspine as requested by her psychiatrist states she wants to do all of this from home Lab Data [facility] Lab Attestation statement: I reviewed the patient's lab results. 04/25/25 11:36 04/25/25 11:36 Labs: Lab Results 04/25/25 Range/Units 11:36 WBC 5.5 (4.8-10.8) X10*3/uL RBC 3.99 L (4.20-5.50) X10*6/uL Hgb 12.4 (12.0-16.0) g/dl Hct 36.8 L (37.0-47.0) % MCV 92.2 (80.0-98.0) fL MCH 31.1 (27.0-33.0) pg MCHC 33.7 (31.0-35.0) g/dl RDW 13.5 (11.0-16.0) % Plt Count 213 (160-400) X10*3/uL MPV 10.9 (9.4-12.3) fL Immature Gran % (Auto) 0.2 (0.0-0.4) % Neut % (Auto) 63.7 (45-73) % Lymph % (Auto) 25.3 (20-40) % [place] % (Auto) 8.5 (2-11) % Eos % (Auto) 1.8 (0-4) % Baso % (Auto) 0.5 (0-2) % Lymph # (Auto) 1.4 (1.2-4.9) X10*3/uL [place] # (Auto) 0.5 (0.1-1.2) X10*3/uL Eos # (Auto) 0.1 (0.0-0.4) X10*3/uL Baso # (Auto) 0.0 (0.0-0.2) X10*3/uL Abs Immat Gran (auto) 0.01 (0.00-0.03) X10*3/uL Absolute Neuts (auto) 3.5 (2.0-8.3) x10*3/uL Absolute Nucleated RBC 0.000 (0.0-0.012) X10*3/uL Nucleated RBC % (auto) 0.0 (0.0-0.2) /100WBC ESR 14 (0-20) MM/HR Sodium 139 (135-145) mmol/L Potassium 4.3 (3.3-5.1) mmol/L Chloride 104 (96-108) mmol/L Carbon Dioxide 28 (22-29) mmol/L Anion Gap 11 L (12-20) BUN 15 (9-16) mg/dL Creatinine 0.86 (0.5-1.4) mg/dL Estim Creat Clear Calc 52.9 Estimated GFR > 60 Random Glucose 131 H (60-115) mg/dL Calcium 9.2 (8.4-10.2) mg/dL Total Bilirubin 0.4 (0.0-1.0) mg/dL AST 34 H (5-31) U/L ALT 53 H (0-31) U/L Alkaline Phosphatase 109 (39-117) U/L C-Reactive Protein 0.12 (< or = 0.50) mg/dL Total Protein 7.2 (6.5-8.0) g/dL Albumin 4.8 (3.5-5.0) g/dL Independent Interpretation I performed an independent interpretation of an: Plain X-Ray (no fx) Radiology Impression Discussion of test interpretation with radiology: I have reviewed the radiologist's reading. Independent Historian Clinical information obtained from an independent historian. History obtained from or confirmed by: Spouse External Record Review External record reviewed: Outpatient record Tests considered The following testing was considered but not selected: CT scans but she refused Prescription Management I considered prescription management with: Pain Medication Discharge Plan Discharge Clinical Impression: Acute low back pain Qualifiers: Back pain laterality: bilateral Sciatica presence: without sciatica Qualified Code(s): M54.50 - Low back pain, unspecified Patient Disposition: Home, Self-Care Instructions: Acute Low Back Pain (ED) Additional Instructions: LABS AT BASELINE, I DID ORDER PANCREAS TEST IF ABNORMAL I WILL CALL YOU offered imaging of neck and abdomen but declined and want to do it as outpatient no broken bones on xray return for worsening pain, numbness, weakness, loss of control of bowel or bladder or any other concerns FINDINGS: There is a mild to moderate levoconvex scoliosis, apex at L4. There is a normal lumbar lordosis. There is a 4 mm degenerative retrolisthesis of L2 on L3, a 2 mm anterolisthesis of L3 on L4, and a 7 mm anterolisthesis of L4 on L5. There is a trace anterolisthesis of L5 on S1. Line there is no fracture, compression deformity, or suspicious bone lesion identified. There is multilevel severe disc degeneration, most significant at L2-3 where there is sclerosis of the endplates. There are advanced multilevel degenerative facet changes spanning the entire lumbar region. There is a left-sided spinal stimulator in place with leads extending into the thoracic region. There are vascular calcifications within the soft tissues. XR/XR lumbar spine 2-3V IMPRESSION: 1. No definite acute radiographic findings of the lumbar spine. 2. Advanced lumbar spondylosis and levoconvex scoliosis. Prescriptions: No Action ezetimibe 10 mg tablet 10 mg PO DAILY Qty: 90 3RF atenolol 50 mg tablet 100 mg PO DAILY 90 Days Qty: 180 3RF atorvastatin 80 mg tablet 80 mg PO DAILY Qty: 90 3RF diazepam 2 mg tablet 2 - 4 mg PO DAILY PRN (Reason: anxiety) Qty: 20 1RF gabapentin 100 mg capsule 100 - 300 mg PO BEDTIME 30 Days Qty: 90 2RF buspirone 15 mg tablet 15 mg PO BID 30 Days Qty: 180 1RF nitroglycerin 0.4 mg tablet, sublingual 0.4 mg sublingual Q5M PRN (Reason: chest pain) Qty: 20 2RF Rx Instructions: do not exceed 3 doses per episode aspirin 81 mg tablet,delayed release (DR/EC) 81 mg PO DAILY cholecalciferol (vitamin D3) 50 mcg (2,000 unit) capsule 50 mcg PO DAILY multivitamin Tablet 1 tab PO DAILY oxycodone-acetaminophen 5-325 mg tablet 1 tab PO QID PRN omeprazole 40 mg capsule,delayed release(DR/EC) 40 mg PO BID mecobalamin (vitamin B12) 1,000 mcg lozenge 2,000 mcg PO DAILY Rx Instructions: allow to dissolve in mouth OR may chew lightly before swallowing trospium 20 mg tablet 20 mg PO ONCE Rx Instructions: administer on an empty stomach mirtazapine 45 mg tablet 45 mg PO BEDTIME Qty: 90 1RF losartan 50 mg tablet 50 mg PO DAILY Interventions: ED Discharge Assessment Last Done: 04/25/25 16:34 Discharge Date/Time: 04/25/25 16:34 Print Language: Stateless
[2025-04-25 11:39] LABS: MANUAL DIFF FLAG NO
[2025-04-25 11:46] LABS: Hematocrit 36.8 % (37.0-47.0); Hemoglobin 12.4 g/dl (12.0-16.0); Imm Gran Abs Auto 0.01 X10*3/uL (0.00-0.03); Imm Gran Pct Auto 0.2 % (0.0-0.4); Lymphocytes Absolute Auto 1.4 X10*3/uL (1.2-4.9); Mean Corpuscular HGB Conc 33.7 g/dl (31.0-35.0); Mean Corpuscular Hemoglobin 31.1 pg (27.0-33.0); Mean Corpuscular Volume 92.2 fL (80.0-98.0); NRBC Abs Auto 0.000 X10*3/uL (0.0-0.012); NRBC Pct Auto 0.0 /100WBC (0.0-0.2); Platelet Count 213 X10*3/uL (160-400); Red Blood Count 3.99 X10*6/uL (4.20-5.50); White Blood Count 5.5 X10*3/uL (4.8-10.8)
[2025-04-25 12:03] LABS: Alanine Aminotransferase 53 U/L (0-31); Albumin Level 4.8 g/dL (3.5-5.0); Alkaline Phosphatase 109 U/L (39-117); Anion Gap 11 (12-20); Blood Urea Nitrogen 15 mg/dL (9-16); Calcium 9.2 mg/dL (8.4-10.2); Carbon Dioxide 28 mmol/L (22-29); Chloride 104 mmol/L (96-108); Creatinine Clr Calc Pharmacy 52.9; Estimated Glomerular Filt Rate > 60; Potassium 4.3 mmol/L (3.3-5.1); Sodium 139 mmol/L (135-145); Total Protein 7.2 g/dL (6.5-8.0)
[2025-04-25 12:19] LABS: Aspartate Amino Transferase 34 U/L (5-31)
--- OUTSIDE RECORDS SUMMARY | 2025-04-25 15:59 | XMS_ITS | Encounter Summary ---
Author Organization [facility] Address [address] [employer] [facility] [address] [place] [address] Phone Care Team Providers Care Real Estate Executive Assistant Name Role Phone Elizabeth Moore MD Primary Care Provider Encounter Details Date Type Department Care Team (Latest Contact Info) Description 05/11/2019 Transcribe Orders [facility] [address] [place] [address] Jorje La MD [address] [place] [address] Bipolar affective disorder, remission status unspecified (Primary Dx) Social History Tobacco Use Types Packs/Day Years Used Date Smoking Tobacco: Never Assessed Comments Unknown Sex and Gender Information Value Date Recorded Sex Assigned at Not on file Legal Sex Female 10:02 PM EDT Gender Identity Not on file Sexual Orientation Not on file documented as of this encounter Plan of Treatment Not on file documented as of this encounter Results * CBC and differential (05/11/2019 7:44 AM EDT) WBC 4.68 3.40 - 11.20 K/uL [facility] RBC 4.39 3.80 - 4.80 M/uL [facility] HGB 13.5 12.0 - 15.0 g/dL [facility] HCT 41.0 36.0 - 46.0 % [facility] PLT 204 130 - 400 K/uL [facility] MCV 93.4 79.0 - 98.0 fL [facility] MCH 30.8 27.0 - 34.8 pg [facility] MCHC 32.9 31.5 - 36.0 g/dL [facility] RDW 13.5 10.8 - 14.6 % [facility] MPV 11.9 9.4 - 12.4 fl [facility] NRBC 0.00 0.00 /100 WBCs [facility] ABSOLUTE NRBC 0.00 0.00 K/uL [facility] DIFF METHOD Auto [facility] NEUTS 54.8 45.30 - 77.70 % [facility] LYMPHS 33.5 12.30 - 39.70 % [facility] MONOS 7.9 4.10 - 12.80 % [facility] EOS 3.0 0 - 7.2 % [facility] BASOS 0.6 0 - 2.80 % [facility] Granulocytes, immature (%) 0.2 0.0 - 0.9 % [facility] ABSOLUTE NEUTS 2.56 1.40 - 7.70 K/uL [facility] ABSOLUTE LYMPHS 1.57 0.60 - 3.20 K/uL [facility] ABSOLUTE MONOS 0.37 0.11 - 0.59 K/uL [facility] ABSOLUTE EOS 0.14 0.01 - 0.50 K/uL [facility] ABSOLUTE BASOS 0.03 0.00 - 0.08 K/uL [facility] Granulocytes, immature 0.01 0.00 - 0.05 K/uL [facility] Blood 05/11/2019 7:44 AM EDT 05/11/2019 7:48 AM EDT us Jorje La MD LAB BLOOD ORDERABLES Fin al Result [facility] [address] [place] [address] * (ABNORMAL) Valproic acid (05/11/2019 7:44 AM EDT) VALPROIC ACID 35.2(L) 50.0 - 100.0 ug/mL [facility] Blood 05/11/2019 7:44 AM EDT 05/11/2019 7:48 AM EDT us Jorje La MD LAB BLOOD ORDERABLES Fin al Result Performing Organization Address City/[facility]/ZIP Co de Phone Number [address] [address] * (ABNORMAL) Comprehensive metabolic panel (05/11/2019 7:44 AM EDT) SODIUM 141 133 - 146 mmol/L [facility] POTASSIUM 4.4 3.3 - 5.1 mmol/L [facility] CHLORIDE 99 96 - 108 mmol/L [facility] CO2 32 21 - 35 mmol/L [facility] BUN 16 6 - 19 mg/dL [facility] CREATININE 0.60 0.5 - 1.5 mg/dL [facility] GLUCOSE 104(H) 70 - 99 mg/dL [facility] ALBUMIN 4.3 3.9 - 4.8 g/dL [facility] TOTAL PROTEIN 6.9 6.5 - 8.0 g/dL [facility] CALCIUM 9.3 8.4 - 10.3 mg/dL [facility] ALKALINE PHOSPHATASE 80 39 - 117 U/L [facility] TOTAL BILIRUBIN 0.3 0.0 - 1.2 mg/dL [facility] AST 22 0 - 37 U/L [facility] ALT 24 0 - 40 U/L [facility] GLOBULIN 2.6 1 - 4.8 g/dL [facility] EGFR 93 >59 mL/min/1.7 3m2 [facility] Comment:If patient is black, multiply result by 1.159. Estimated glomerular filtration rate calculated using the CKD-EPI equation. ANION GAP 14 10 - 20 mmol/L [facility] Blood 05/11/2019 7:44 AM EDT 05/11/2019 7:48 AM EDT us Jorje La MD LAB BLOOD ORDERABLES Fin al Result Performing Organization Address City/[facility]/ZIP Co de Phone Number [address] [address] documented in this encounter Visit Diagnoses Diagnosis Bipolar affective disorder, remission status unspecified- Primary documented in this encounter Care Teams Real Estate Executive Assistant Relationship Specialty Start Date End Date Elizabeth Moore MD [facility] [address] [address] PCP - General Internal Medicine 09/21/17 documented as of this encounter Additional Source Comments The information contained in this document represents components of the legal health record. It is not the complete legal health record.[facility]
--- OUTSIDE RECORDS SUMMARY | 2025-04-25 15:59 | XMS_ITS | Encounter Summary ---
Author Organization [facility] Address [address] [place] [address] Phone Care Team Providers Care Transportation Broker Name Role Phone Elizabeth Moore MD Primary Care Provider Reason for Referral * Physical Therapy (Within 3 days (urgent)) - Closed Specialty Diagnoses / Procedures Referred By Elena tan Referred To Contact Physical Therapy Diagnoses Encounter for rehabilitation System, Provider Not In, PhD [address] [address] Phone: tel: Referral ID Status Reason Start Date Expiration Date Visits Re quested Visits Authorized [id number] Closed 09/21/2017 08/21/2018 25 25 Encounter Details Date Type Department Care Team (Latest Contact Info) Description 09/21/2017 Transcribe Orders [facility] [address] [place] [address] Bill Brown PA [address] [address] Encounter for rehabilitation (Primary Dx) Social History Tobacco Use Types Packs/Day Years Used Date Smoking Tobacco: Never Assessed Comments Unknown Sex and Gender Information Value Date Recorded Sex Assigned at Not on file Legal Sex Female 10:02 PM EDT Gender Identity Not on file Sexual Orientation Not on file documented as of this encounter Plan of Treatment Scheduled Referrals Name Type Priority Associated Diagnoses Orde r Schedule Ambulatory referral to [facility] Physical Therapy Outpatient Referral Routine Encounter for rehabilitation Ordered: 09/21/2017 documented as of this encounter Visit Diagnoses Diagnosis Encounter for rehabilitation- Primary documented in this encounter Care Teams Transportation Broker Relationship Specialty Start Date End Date Elizabeth Moore MD [address] [place] [address] PCP - General Internal Medicine 09/21/17 documented as of this encounter Additional Source Comments The information contained in this document represents components of the legal health record. It is not the complete legal health record.[facility]
--- OUTSIDE RECORDS SUMMARY | 2025-04-25 15:59 | XMS_ITS | Encounter Summary ---
Author Organization [facility] Address [address] [facility] [address] [place] [address] Phone Care Team Providers Care Medical Insurance Verifier Name Role Phone Elizabeth Moore MD Primary Care Provider Encounter Details Date Type Department Care Team (Late st Contact Info) Description 10/06/2022 Transcribe Orders [facility] [address] [place] [address] Ruddy Oconnell MD [address] [address] Social History Tobacco Use Types Packs/Day Years Used Date Smoking Tobacco: Former Cigarettes Q uit: 1997 Smokeless Tobacco: Never Comments Unknown Sex and Gender Information Value Date Recorded Sex Assigned at Not on file Legal Sex Female 10:02 PM EDT Gender Identity Not on file Sexual Orientation Not on file documented as of this encounter Plan of Treatment Not on file documented as of this encounter Visit Diagnoses Not on filedocumented in this encounter Care Teams Medical Insurance Verifier Relationship Specialty Start Date End Date Elizabeth Moore MD [address] [facility] [address] [place] [address] PCP - General Internal Medicine 09/21/17 documented as of this encounter Additional Source Comments The information contained in this document represents components of the legal health record. It is not the complete legal health record.[facility]
--- OUTSIDE RECORDS SUMMARY | 2025-04-25 15:59 | XMS_ITS | Encounter Summary ---
Author Organization [facility] Address [address] [place] [address] [place] [address] Phone Care Team Providers Care Waistband Setter Lockstitch Name Role Phone Elizabeth Moore MD Primary Care Provider Encounter Details Date Type Department Care Team (Latest Contact Info) Description 01/02/2020 Transcribe Orders [facility] [address] [place] [address] Jorje La MD [address] [place] [address] Bipolar affective disorder, remission status unspecified (Primary Dx); Medication monitoring encounter; Impaired fasting glucose Social History Tobacco Use Types Packs/Day Years [...] documented as of this encounter Results * (ABNORMAL) Lamotrigine level (01/02/2020 7:38 AM EDT) LAMOTRIGINE 2.4(L) 4.0 - 18.0 mg/L [facility] Blood 01/02/2020 7:38 AM EDT 01/02/2020 8:57 AM EDT us Jorje La MD LAB BLOOD ORDERABLES Fin al Result [address] [address] * Vitamin B12 (01/02/2020 7:38 AM EDT) VITAMIN B12 525 232 - 1,245 pg/mL [facility] Blood 01/02/2020 7:38 AM EDT 01/02/2020 8:57 AM EDT us Jorje La MD LAB BLOOD ORDERABLES Fin al Result Performing Organization Address City/[facility]/ZIP Co de Phone Number [address] [address] * URINALYSIS WITH SEDIMENT (01/02/2020 7:38 AM EDT) WBC NONE SEEN NONE SEEN /hpf [facility] RBC NONE SEEN NONE SEEN /hpf [facility] URINE EPITHELIAL NONE SEEN NONE SEEN [facility] MUCUS NONE SEEN NONE SEEN /hpf [facility] BACTERIA NONE SEEN NONE SEEN /hpf [facility] COLOR Yellow Yellow [facility] CLARITY Clear [facility] GLUCOSE Negative Negative [facility] BILI Negative Negative [facility] KETONES Negative Negative [facility] SPECIFIC GRAVITY 1.015 1.005 - 1.030 [facility] BLOOD Negative Negative [facility] PH 6.0 5.0 - 8.0 [facility] Protein-UA Negative Negative [facility] NITRITE Negative Negative [facility] Leukocyte esterase, ur Negative Negative [facility] Urine (Urine) 01/02/2020 7:3 8 AM EDT 01/02/2020 8:58 AM EDT us Jorje La MD URINE ORDERABLES Final R esult Performing Organization Address City/[facility] Co de Phone Number [address] [address] * TSH (01/02/2020 7:38 AM EDT) TSH 1.86 0.27 - 4.20 uIU/mL [facility] Blood 01/02/2020 7:38 AM EDT 01/02/2020 8:57 AM EDT us Jorje La MD LAB BLOOD ORDERABLES Fin al Result Performing Organization Address [facility] Co de Phone Number [address] [address] * (ABNORMAL) Hemoglobin A1c (01/02/2020 7:38 AM EDT) HEMOGLOBIN A1C 6.4(H) 4.3 - 5.8 % [facility] Blood 01/02/2020 7:38 AM EDT 01/02/2020 8:57 AM EDT us Jorje La MD LAB BLOOD ORDERABLES Fin al Result Performing Organization Address [facility] de Phone Number [address] [address] * Free T4 (01/02/2020 7:38 AM EDT) FREE T4 1.3 0.9 - 1.7 ng/dL [facility] Blood 01/02/2020 7:38 AM EDT 01/02/2020 8:57 AM EDT us Jorje La MD LAB BLOOD ORDERABLES Fin al Result Performing Organization Address [facility] de Phone Number [address] [address] * (ABNORMAL) Folate (01/02/2020 7:38 AM EDT) FOLIC ACID >20.0(H) 4.2 - 19.9 ng/mL [facility] Blood 01/02/2020 7:38 AM EDT 01/02/2020 8:57 AM EDT Jorje La MD LAB BLOOD ORDERABLES Fin al Result [address] [address] * C-Reactive Protein (01/02/2020 7:38 AM EDT) C REACTIVE PROTEIN 0.5 0.0 - 4.0 mg/L [facility] Blood 01/02/2020 7:38 AM EDT 01/02/2020 8:57 AM EDT us Jorje La MD LAB BLOOD ORDERABLES Fin al Result Performing Organization Address City/[facility]/ZIP Co de Phone Number [address] [address] * (ABNORMAL) Comprehensive metabolic panel (01/02/2020 7:38 AM EDT) SODIUM 142 133 - 146 mmol/L [facility] POTASSIUM 4.6 3.3 - 5.1 mmol/L [facility] CHLORIDE 101 96 - 108 mmol/L [facility] CO2 28 21 - 35 mmol/L [facility] BUN 20(H) 6 - 19 mg/dL [facility] CREATININE 0.70 0.5 - 1.5 mg/dL [facility] GLUCOSE 116(H) 70 - 99 mg/dL [facility] ALBUMIN 4.8 3.9 - 4.8 g/dL [facility] TOTAL PROTEIN 7.6 6.5 - 8.0 g/dL [facility] CALCIUM 10.0 8.4 - 10.3 mg/dL [facility] ALKALINE PHOSPHATASE 83 39 - 117 U/L [facility] TOTAL BILIRUBIN 0.3 0.0 - 1.2 mg/dL [facility] AST 28 0 - 37 U/L [facility] ALT 28 0 - 40 U/L [facility] GLOBULIN 2.8 1 - 4.8 g/dL [facility] EGFR 88 >59 mL/min/1.7 3m2 [facility] Comment:If patient is black, multiply result by 1.159. Estimated glomerular filtration rate calculated using the CKD-EPI equation. ANION GAP 18 10 - 20 mmol/L [facility] Blood 01/02/2020 7:38 AM EDT 01/02/2020 8:57 AM EDT us Jorje La MD LAB BLOOD ORDERABLES Fin al Result [facility] [address] [place] [address] * CBC and differential (01/02/2020 7:38 AM EDT) WBC 6.42 4.00 - 11.00 K/uL [facility] Comment:Note Reference Range updates to all CBC and Differential results. RBC 4.57 3.72 - 5.30 M/uL [facility] HGB 13.7 11.4 - 15.9 g/dL [facility] Comment:Note updated Referen ce Ranges for all CBC and Differential results. HCT 41.3 34.2 - 46.8 % [facility] PLT 265 140 - 430 K/uL [facility] MCV 90.4 78.0 - 97.0 [facility] MCH 30.0 25.0 - 33.0 pg [facility] MCHC 33.2 32.0 - 36.0 g/dL [facility] RDW 14.0 11.0 - 16.0 % [facility] MPV 11.5 8.4 - 12.8 [facility] NRBC 0.00 0 /100 WBCs [facility] ABSOLUTE NRBC 0.00 0 K/uL [facility] DIFF METHOD Auto [facility] NEUTS 55.8 43.0 - 75.0 % [facility] LYMPHS 34.0 18.2 - 47.4 % [facility] MONOS 6.9 4.00 - 11.00 % [facility] EOS 2.2 0.0 - 8.0 % [facility] BASOS 0.6 0.0 - 2.0 % [facility] Granulocytes, immature (%) 0.5 0.0 - 0.9 % [facility] ABSOLUTE NEUTS 3.59 1.80 - 7.70 K/uL [facility] ABSOLUTE LYMPHS 2.18 1.00 - 3.10 K/uL [facility] ABSOLUTE MONOS 0.44 0.20 - 0.80 K/uL [facility] ABSOLUTE EOS 0.14 0.00 - 0.80 K/uL [facility] ABSOLUTE BASOS 0.04 0.00 - 0.09 K/uL [facility] Granulocytes, immature 0.03 0.00 - 0.05 K/uL [facility] Blood 01/02/2020 7:38 AM EDT 01/02/2020 8:57 AM EDT us Jorje La MD LAB BLOOD ORDERABLES Fin al Result [facility] [address] [place] [address] documented in this encounter Visit Diagnoses Diagnosis Bipolar affective disorder, remission status unspecified- Primary Medication monitoring encounter Encounter for therapeutic drug monitoring Impaired fasting glucose Impaired fasting glucose documented in this encounter Care Teams Waistband Setter Lockstitch Relationship Specialty Start Date End Date Elizabeth Moore MD [address] [place] [address] PCP - General Internal Medicine 09/21/17 documented as of this encounter Additional Source Comments The information contained in this document represents components of the legal health record. It is not the complete legal health record.[facility]
--- OUTSIDE RECORDS SUMMARY | 2025-04-25 15:59 | XMS_ITS | Clinical Summary ---
Author Organization [facility] [place] [address] Care Team Providers Care Operations Superintendent Name Role Phone Unavailable Primary Care Provider [...]
--- OUTSIDE RECORDS SUMMARY | 2025-04-25 15:59 | XMS_ITS | Encounter Summary ---
Author Organization [facility] Address [address] [employer] [facility] [address] [place] [address] Phone Care Team Providers Care Structural Technician Name Role Phone Elizabeth Moore MD Primary Care Provider Encounter Details Date Type Department Care Team (Latest Contact Info) Description 09/29/2018 Transcribe Orders [facility] [address] [place] [address] Ruddy Oconnell MD [address] [place] [address] Precordial pain (Primary Dx) Social History Tobacco Use Types [...] as of this encounter Results * (ABNORMAL) Basic metabolic panel (09/29/2018 10:37 AM EST) SODIUM 139 133 - 146 mmol/L [facility] CHLORIDE 97 96 - 108 mmol/L [facility] POTASSIUM 5.3(H) 3.3 - 5.1 mmol/L [facility] CO2 33 21 - 35 mmol/L [facility] BUN 17 6 - 19 mg/dL [facility] CREATININE 0.50 0.5 - 1.5 mg/dL [facility] GLUCOSE 96 70 - 99 mg/dL [facility] CALCIUM 9.2 8.4 - 10.3 mg/dL [facility] EGFR 99 >59 mL/min/1.7 3m2 [facility] Comment:If patient is black, multiply result by 1.159. Estimated glomerular filtration rate calculated using the CKD-EPI equation. ANION GAP 14 10 - 20 mmol/L [facility] Blood 09/29/2018 10:3 7 AM EST 09/29/2018 12:31 PM EST Ruddy Oconnell MD LAB BLOOD ORDERABLES nal Result Performing Organization Address [facility]/ZIP Co de Phone Number [address] [address] * PT-INR (09/29/2018 10:37 AM EST) PT 10.6 10.2 - 12.9 sec [facility] INR 0.9 0.9 - 1.1 [facility] Comment:Therapeutic range fo r oral Vitamin K antagonists: 2.0-3.5 Blood 09/29/2018 10:3 7 AM EST 09/29/2018 12:31 PM EST Ruddy Oconnell MD LAB BLOOD ORDERABLES nal Result Performing Organization Address [facility]/ZIP Co de Phone Number [address] [address] * CBC and differential (09/29/2018 10:37 AM EST) WBC 6.14 3.40 - 11.20 K/uL [facility] RBC 4.24 3.80 - 4.80 M/uL [facility] HGB 12.8 12.0 - 15.0 g/dL [facility] HCT 39.2 36.0 - 46.0 % [facility] PLT 238 130 - 400 K/uL [facility] MCV 92.5 79.0 - 98.0 fL [facility] MCH 30.2 27.0 - 34.8 pg [facility] MCHC 32.7 31.5 - 36.0 g/dL [facility] RDW 13.4 10.8 - 14.6 % [facility] MPV 11.0 9.4 - 12.4 fl [facility] NRBC 0.00 0.00 /100 WBCs [facility] ABSOLUTE NRBC 0.00 0.00 K/uL [facility] DIFF METHOD Auto [facility] NEUTS 55.1 45.30 - 77.70 % [facility] LYMPHS 32.2 12.30 - 39.70 % [facility] MONOS 7.3 4.10 - 12.80 % [facility] EOS 4.4 0 - 7.2 % [facility] BASOS 0.7 0 - 2.80 % [facility] Granulocytes, immature (%) 0.3 0.0 - 0.9 % [facility] ABSOLUTE NEUTS 3.38 1.40 - 7.70 K/uL [facility] ABSOLUTE LYMPHS 1.98 0.60 - 3.20 K/uL [facility] ABSOLUTE MONOS 0.45 0.11 - 0.59 K/uL [facility] ABSOLUTE EOS 0.27 0.01 - 0.50 K/uL [facility] ABSOLUTE BASOS 0.04 0.00 - 0.08 K/uL [facility] Granulocytes, immature 0.02 0.00 - 0.05 K/uL [facility] Blood 09/29/2018 10:3 7 AM EST 09/29/2018 12:31 PM EST Ruddy Oconnell MD LAB BLOOD ORDERABLES Fi nal Result Performing Organization Address City/State/[facility] Co de Phone Number [facility] [address] [place] [address] documented in this encounter Visit Diagnoses Diagnosis Precordial pain- Primary documented in this encounter Care Teams Structural Technician Relationship Specialty Start Date End Date Elizabeth Moore MD [address] [place] [address] PCP - General Internal Medicine 09/21/17 documented as of this encounter Additional Source Comments The information contained in this document represents components of the legal health record. It is not the complete legal health record.[facility]
--- OUTSIDE RECORDS SUMMARY | 2025-04-25 15:59 | XMS_ITS | Clinical Summary ---
Author Organization [facility] Address [address] [place] [address] Phone Care Team Providers Care Poultry Scalder Name Role Phone Elizabeth Moore MD Primary Care Provider Allergies No known active allergies Medications MULTIVITAMIN ORAL Take by mouth. Activ e cholecalciferol , vitamin D3, (VITAMIN D3 ORAL) Take by mouth. Activ e BABY ASPIRIN ORAL Take by mouth. Activ e albuterol 90 mcg/actuation inhaler INHALE 1 TO 2 INHALATION BY MOUTH EVERY 4 TO 6 HOURS NEEDED FOR WHEEZING 1 Active atenolol (TENORMIN) 25 MG tablet 1 Active diazePAM (VALIUM) 2 MG tablet Take 2 mg by mouth 3 (three) times a day as needed. 1 Active omeprazole (PRILOSEC) 40 MG capsule Take by mouth daily. 1 Active lisinopril (PRINIVIL,ZESTR IL) 5 MG tablet Take 5 mg by mouth daily. 1 Active mirtazapine (REMERON) 15 MG tablet Take 15 mg by mouth nightly at bedtime. at bedtime. 1 Active atorvastatin (LIPITOR) 80 MG tablet 1 Active oxyCODONE-aceta minophen (PERCOCET) 5-325 mg per tablet TAKE 1 TABLET BY MOUTH EVERY 6 TO 8 HOURS NEEDED FOR PAIN 1 Active [id number] b-C 100-7.5-2.691 gram PwPk Active Active Problems No known active problems Social History Tobacco Use Types Packs/Day Years Used Date Smoking Tobacco: Former Cigarettes Q uit: 1997 Smokeless Tobacco: Never Education Answer Date Recorded Are you interested in more education? Not on zulema e 12/17/2022 Are you concerned about learning? Not on file 12/17/2022 No 12/17/2022 No 12/17/2022 Digital Access Answer Date Recorded No 01/15/2023 No 01/15/2023 No 01/15/2023 Reliable internet access at home? Not on file 01/15/2023 Device with a working camera? Not on file Comments Unknown Sex and Gender Information Value Date Recorded Sex Assigned at Not on file Legal Sex Female 10:02 PM EDT Gender Identity Not on file Sexual Orientation Not on file Last Filed Vital Signs Vital Sign Reading Time Taken Comments Blood Pressure 138/85 12/18/2020 2:49 PM EDT Pulse 87 12/18/2020 2:49 PM EDT Temperature 36.6 C (97.9 F) 12/18/2020 2:49 PM EDT Respiratory Rate 18 12/18/2020 2:49 PM EDT Oxygen Saturation 99% 12/18/2020 2:49 PM EDT Inhaled Oxygen Concentration - - Weight 70.3 kg (155 lb) 12/18/2020 2:49 PM EDT Height 166.4 cm (5' 5.5 ) 12/18/2020 2:49 PM EDT Body Mass Index 25.4 12/18/2020 2:49 PM EDT Plan of Treatment Health Maintenance Due Date Last Done Comments BLOOD PRESSURE 1950 DEPRESSION SCREENING 1962 SMOKING Hx and SMOKELESS TOBACCO SCREENING 1963 HEPATITIS C SCREENING 02/22/1968 COLOGUARD 1995 COLONOSCOPY 1995 COLORECTAL CANCER SCREENING 1995 FIT TEST 1995 FOBT 1995 SIGMOIDOSCOPY 1995 VIRTUAL COLONOSCOPY 1995 OSTEOPOROSIS SCREENING INITIAL (ONE-TIME) 2015 RSV VACCINE (1 - 1-dose 75+ series) 2025 INFLUENZA VACCINE (#1) 2025 9, 05/27/2018, 08/29/2017, Additional history exists COVID-19 VACCINE ( season) 2025 06/16/2021, 11/27/2020, 11/06/2020 CREATININE LEVEL 08/21/2025 08/21/2024, 07/2024, 09/26/2020, Additional history exists POTASSIUM LEVEL 08/21/2025 08/21/2024, 09/22, 09/26/2020, Additional history exists LIPID PANEL 08/21/2029 08/21/2024, 09/22, 10/06/2022, Additional history exists Adult Td,Tdap Booster 03/07/2031 03/07/2021, 019 ZOSTER VACCINES Completed 08/06/2019, 06/05/2019 PNEUMOCOCCAL VACCINES (50+ years) Completed 02/04/2020, 09/04/2018, 04/29/2015, Additional history exists HEPATITIS A VACCINES Aged Out No long er eligible based on patient's age to complete this topic HIB VACCINES Aged Out No longer eligi ble based on patient's age to complete this topic MENINGOCOCCAL VACCINES (ACWY) Aged Out No longer eligible based on patient's age to complete this topic MENINGOCOCCAL VACCINES (B) Aged Out N o longer eligible based on patient's age to complete this topic Medical Devices Not on file Procedures Procedure Name Priority Date/Time Associated Diagnosis Comments LIPID PANEL Routine 08/21/2024 8:00 AM EST Hypertension, unspecified type Pure hypercholesterolemi a Fatigue, unspecified type COMPREHENSIVE METABOLIC PANEL Routine 08/21/2024 8:00 AM EST Hypertension, unspecified type Pure hypercholesterolemi a Fatigue, unspecified type from Last 3 Months or Most Recently Relevant to Health Maintenance Results * (ABNORMAL) Comprehensive metabolic panel (08/21/2024 8:00 AM EST) SODIUM 141 133 - 146 mmol/L [facility] POTASSIUM 4.9 3.3 - 5.1 mmol/L [facility] CHLORIDE 102 96 - 108 mmol/L [facility] CO2 28 21 - 35 mmol/L [facility] BUN 17 6 - 19 mg/dL [facility] CREATININE 0.70 0.5 - 1.5 mg/dL [facility] GLUCOSE 125(H) 70 - 99 mg/dL [facility] ALBUMIN 4.5 3.9 - 4.8 g/dL [facility] TOTAL PROTEIN 7.1 6.5 - 8.0 g/dL [facility] CALCIUM 9.5 8.4 - 10.3 mg/dL [facility] ALKALINE PHOSPHATASE 112 39 - 117 U/L [facility] TOTAL BILIRUBIN 0.4 0.0 - 1.2 mg/dL [facility] AST 27 0 - 37 U/L [facility] ALT 50(H) 0 - 40 U/L [facility] GLOBULIN 2.6 1 - 4.8 g/dL [facility] EGFR 91 >59 mL/min/1.7 3m2 [facility] Comment:Estimated glomerular filtration rate calculated using the CKD-EPI refit equation. ANION GAP 16 10 - 20 mmol/L [facility] Blood 08/21/2024 8:00 AM EST 08/21/2024 8:03 AM EST us Elizabeth Moore MD LAB BLOOD ORDERABLES F inal Result [facility] [address] [place] [address] * (ABNORMAL) Lipid panel (08/21/2024 8:00 AM EST) HDL 57 mg/dL [facility] Comment: Interpretation <40 mg/dL: Low HDL cholesterol (major risk factor for CHD) Greater than or equal to 60 mg/dL: High HDL cholesterol ( negative risk factor for CHD) HDL - cholesterol is affected by a number of factors, e.g. smoking, excerise, hormones, sex and age. CHOLESTEROL 163 0 - 240 mg/dL [facility] TRIGLYCERIDES 212(H) 30 - 160 mg/dL [facility] LDL 64 50 - 129 mg/dL [facility] Comment: LDL levels in terms of risk for coronary heart disease: <100 mg/dL: Optimal 100-129 mg/dL: Near or above optimal 130-159 mg/dL: Borderline high 160-189 mg/dL: High >190 mg/dL: Very High CARDIAC RISK RATIO 2.9(L) 3.3 - 4.4 C [facility] Blood 08/21/2024 8:00 AM EST 08/21/2024 8:03 AM EST us Elizabeth Moore MD LAB BLOOD ORDERABLES F inal Result [facility] [address] [place] [address] from Last 3 Months or Most Recently Relevant to Health Maintenance Insurance MEDICARE PART A & B [facility] MEDICARE SUPPLEMENT MEDICARE PART A & B [facility] MEDICARE SUPPLEMENT MEDICARE PART A & B MEDICARE SUPPLEMENT MEDICARE PART A & B MEDICARE SUPPLEMENT MEDICARE PART A & B MEDICARE SUPPLEMENT MEDICARE PART A & B MEDICARE SUPPLEMENT MEDICARE PART A & B MEDICARE SUPPLEMENT MEDICARE PART A & B Member Subscriber Plan / Payer ( fective 2015-) Name:Ximena Larkin Member ID:[id number] Relation to Subscriber:Self Name:Ximena Larkin Subscriber ID:[id number] Payer ID:[id number] Group ID:Not on file Type:Medicare Address: [employer] [facility].[address] [place] [address] [facility] MEDICARE SUPPLEMENT MEDICARE PART A & B [facility] MEDICARE SUPPLEMENT [facility] Care Teams Poultry Scalder Relationship Specialty Start Date End Date Elizabeth Moore MD [address] [place] [id number] PCP - General Internal Medicine 09/21/17 Additional Source Comments The information contained in this document represents components of the legal health record. It is not the complete legal health record.[facility]
--- OUTSIDE RECORDS SUMMARY | 2025-04-25 15:59 | XMS_ITS | Encounter Summary ---
Author Organization [facility] Address [address] [place] [address] [place] [address] Phone Care Team Providers Care Weight Reduction Specialist Name Role Phone Elizabeth Moore MD Primary Care Provider Encounter Details Date Type Department Care Team (Latest Contact Info) Description 04/19/2019 Transcribe Orders [facility] [address] [place] [address] Jorje La MD [address] [place] [address] Bipolar affective disorder, remission status unspecified (Primary [...] documented as of this encounter Results * Valproic acid (04/19/2019 7:43 AM EDT) VALPROIC ACID 52.3 50.0 - 100.0 ug/mL [facility] Blood 04/19/2019 7:43 AM EDT 04/19/2019 7:47 AM EDT Jorje La MD LAB BLOOD ORDERABLES Fin al Result [address] [address] * (ABNORMAL) Comprehensive metabolic panel (04/19/2019 7:43 AM EDT) SODIUM 142 133 - 146 mmol/L [facility] POTASSIUM 5.2(H) 3.3 - 5.1 mmol/L [facility] CHLORIDE 100 96 - 108 mmol/L [facility] CO2 30 21 - 35 mmol/L [facility] BUN 17 6 - 19 mg/dL [facility] CREATININE 0.60 0.5 - 1.5 mg/dL [facility] GLUCOSE 94 70 - 99 mg/dL [facility] ALBUMIN 4.3 3.9 - 4.8 g/dL [facility] TOTAL PROTEIN 6.9 6.5 - 8.0 g/dL [facility] CALCIUM 9.3 8.4 - 10.3 mg/dL [facility] ALKALINE PHOSPHATASE 75 39 - 117 U/L [facility] TOTAL BILIRUBIN 0.3 0.0 - 1.2 mg/dL [facility] AST 26 0 - 37 U/L [facility] ALT 21 0 - 40 U/L [facility] GLOBULIN 2.6 1 - 4.8 g/dL [facility] EGFR 93 >59 mL/min/1.7 3m2 [facility] Comment:If patient is black, multiply result by 1.159. Estimated glomerular filtration rate calculated using the CKD-EPI equation. ANION GAP 17 10 - 20 mmol/L [facility] Blood 04/19/2019 7:43 AM EDT 04/19/2019 7:47 AM EDT us Jorje La MD LAB BLOOD ORDERABLES Fin al Result [address] [address] documented in this encounter Visit Diagnoses Diagnosis Bipolar affective disorder, remission status unspecified- Primary documented in this encounter Care Teams Weight Reduction Specialist Relationship Specialty Start Date End Date Elizabeth Moore MD [address] [place] [address] [place] [phone] PCP - General Internal Medicine 09/21/17 documented as of this encounter Additional Source Comments The information contained in this document represents components of the legal health record. It is not the complete legal health record.[facility]
--- OUTSIDE RECORDS SUMMARY | 2025-04-25 15:59 | XMS_ITS | Encounter Summary ---
Author Organization [facility] Address [address] [facility] [address] [place] [address] Phone Care Team Providers Care Lawn Service Manager Name Role Phone Elizabeth Moore MD Primary Care Provider Encounter Details Date Type Department Care Team ([facility] st Contact Info) Description 05/26/2020 Transcribe Orders [facility] [address] [place] [address] Sd Holloway MD [address] [place] [address] Social History Tobacco Use Types Packs/Day Years [...] on filedocumented in this encounter Care Teams Lawn Service Manager Relationship Specialty Start Date End Date Elizabeth Moore MD [address] [facility] [address] [place] [address] PCP - General Internal Medicine 09/21/17 documented as of this encounter Additional Source Comments The information contained in this document represents components of the legal health record. It is not the complete legal health record.[facility]
--- OUTSIDE RECORDS SUMMARY | 2025-04-25 15:59 | XMS_ITS | Encounter Summary ---
Author Organization [facility] Address [address] [facility] [address] [place] [address] Phone Care Team Providers Care Gas Combustion Engineer Name Role Phone Elizabeth Moore MD Primary Care Provider Encounter Details Date Type Department Care Team (Latest Contact Info) Description 09/24/2019 Transcribe Orders [facility] [address] [place] [address] Elizabeth Moore MD [address] [facility] [address] [place] [address] Essential hypertension, malignant (Primary Dx); Atherosclerosis of [place] coronary artery, angina presence unspecified, unspecified whether [place] or transplanted heart; Pure hypercholesterolemia; Avitaminosis D Social History Tobacco Use Types Packs/Day Years [...] documented as of this encounter Results * 25-OH vitamin D (09/24/2019 7:42 AM EST) 25 OH VIT D (TOTAL) 41 30 - 60 ng/mL [facility] Blood 09/24/2019 7:42 AM EST 09/24/2019 8:51 AM EST us Elizabeth Moore MD LAB BLOOD ORDERABLES F inal Result [address] [address] * TSH (09/24/2019 7:42 AM EST) Pathologist [facility] TSH 1.50 0.27 - 4.20 uIU/mL [facility] Blood 09/24/2019 7:42 AM EST 09/24/2019 8:51 AM EST Elizabeth Moore MD LAB BLOOD ORDERABLES F inal Result Performing Organization Address [facility] Co de Phone Number [address] [address] * Free T4 (09/24/2019 7:42 AM EST) [facility] FREE T4 1.3 0.9 - 1.7 ng/dL [facility] Blood 09/24/2019 7:42 AM EST 09/24/2019 8:51 AM EST Elizabeth Moore MD LAB BLOOD ORDERABLES F inal Result Performing Organization Address [facility] Co de Phone Number [address] [address] * CBC and differential (09/24/2019 7:42 AM EST) Pathologist [facility] WBC 5.89 4.00 - 11.00 K/uL [facility] Comment:Note Reference Range updates to all CBC and Differential results. RBC 4.28 3.72 - 5.30 M/uL [facility] HGB 13.2 11.4 - 15.9 g/dL [facility] Comment:Note updated Referen ce Ranges for all CBC and Differential results. HCT 39.0 34.2 - 46.8 % [facility] PLT 232 140 - 430 K/uL [facility] MCV 91.1 78.0 - 97.0 fL [facility] MCH 30.8 25.0 - 33.0 pg [facility] MCHC 33.8 32.0 - 36.0 g/dL [facility] RDW 14.1 11.0 - 16.0 % [facility] MPV 12.2 8.4 - 12.8 fl [facility] NRBC 0.00 0 /100 WBCs [facility] ABSOLUTE NRBC 0.00 0 K/uL [facility] DIFF METHOD Auto [facility] NEUTS 59.0 43.0 - 75.0 % [facility] LYMPHS 29.2 18.2 - 47.4 % [facility] MONOS 7.1 4.00 - 11.00 % [facility] EOS 3.9 0.0 - 8.0 % [facility] BASOS 0.5 0.0 - 2.0 % [facility] Granulocytes, immature (%) 0.3 0.0 - 0.9 % [facility] ABSOLUTE NEUTS 3.47 1.80 - 7.70 K/uL [facility] ABSOLUTE LYMPHS 1.72 1.00 - 3.10 K/uL [facility] ABSOLUTE MONOS 0.42 0.20 - 0.80 K/uL [facility] ABSOLUTE EOS 0.23 0.00 - 0.80 K/uL [facility] ABSOLUTE BASOS 0.03 0.00 - 0.09 K/uL [facility] Granulocytes, immature 0.02 0.00 - 0.05 K/uL [facility] Blood 09/24/2019 7:42 AM EST 09/24/2019 8:51 AM EST us Elizabeth Moore MD LAB BLOOD ORDERABLES F inal Result [facility] [address] [place] [address] * (ABNORMAL) Lipid panel (09/24/2019 7:42 AM EST) HDL 48 mg/dL [facility] Comment: Interpretation <40 mg/dL: Low HDL cholesterol (major risk factor for CHD) Greater than or equal to 60 mg/dL: High HDL cholesterol ( negative risk factor for CHD) HDL - cholesterol is affected by a number of factors, e.g. smoking, excerise, hormones, sex and age. CHOLESTEROL 159 0 - 240 mg/dL [facility] TRIGLYCERIDES 174(H) 30 - 160 mg/dL [facility] LDL 76 50 - 129 mg/dL [facility] Comment: LDL levels in terms of risk for coronary heart disease: <100 mg/dL: Optimal 100-129 mg/dL: Near or above optimal 130-159 mg/dL: Borderline high 160-189 mg/dL: High >190 mg/dL: Very High CARDIAC RISK RATIO 3.3 3.3 - 4.4 C [facility] Blood 09/24/2019 7:42 AM EST 09/24/2019 8:51 AM EST us Elizabeth Moore MD LAB BLOOD ORDERABLES F inal Result Performing Organization Address City/State/[facility] Co de Phone Number [address] [address] * (ABNORMAL) Comprehensive metabolic panel (09/24/2019 7:42 AM EST) SODIUM 142 133 - 146 mmol/L [facility] POTASSIUM 5.1 3.3 - 5.1 mmol/L [facility] CHLORIDE 101 96 - 108 mmol/L [facility] CO2 26 21 - 35 mmol/L [facility] BUN 18 6 - 19 mg/dL [facility] CREATININE 0.70 0.5 - 1.5 mg/dL [facility] GLUCOSE 108(H) 70 - 99 mg/dL [facility] ALBUMIN 4.4 3.9 - 4.8 g/dL [facility] TOTAL PROTEIN 6.9 6.5 - 8.0 g/dL [facility] CALCIUM 9.5 8.4 - 10.3 mg/dL [facility] ALKALINE PHOSPHATASE 89 39 - 117 U/L [facility] TOTAL BILIRUBIN 0.3 0.0 - 1.2 mg/dL [facility] AST 29 0 - 37 U/L [facility] ALT 28 0 - 40 U/L [facility] GLOBULIN 2.5 1 - 4.8 g/dL [facility] EGFR 88 >59 mL/min/1.7 3m2 [facility] Comment:If patient is black, multiply result by 1.159. Estimated glomerular filtration rate calculated using the CKD-EPI equation. ANION GAP 20 10 - 20 mmol/L [facility] Blood 09/24/2019 7:42 AM EST 09/24/2019 8:51 AM EST us Elizabeth Moore MD LAB BLOOD ORDERABLES F inal Result [facility] [address] [place] [address] documented in this encounter Visit Diagnoses Diagnosis Essential hypertension, malignant- Primary Atherosclerosis of [place] coronary artery, angina presence unspecified, unspecified whether [place] or transplanted heart Pure hypercholesterolemia Avitaminosis D Unspecified vitamin D deficiency documented in this encounter Care Teams Gas Combustion Engineer Relationship Specialty Start Date End Date Elizabeth Moore MD [facility] [address] [address] PCP - General Internal Medicine 09/21/17 documented as of this encounter Additional Source Comments The information contained in this document represents components of the legal health record. It is not the complete legal health record.[facility]
--- OUTSIDE RECORDS SUMMARY | 2025-04-25 15:59 | XMS_ITS | Encounter Summary ---
Author Organization [facility] Address [address] [employer] [facility] [address] [place] [address] Phone Care Team Providers Care Chicken Cutter Name Role Phone Elizabeth Moore MD Primary Care Provider Encounter Details Date Type Department Care Team (Latest Contact Info) Description 09/01/2018 Transcribe Orders [facility] [address] [place] [address] Jorje La MD [address] [place] [address] Mood disorder (Primary Dx) Social History Tobacco Use Types [...] as of this encounter Results * CBC (09/01/2018 7:27 AM EST) WBC 5.67 3.40 - 11.20 K/uL [facility] RBC 4.57 3.80 - 4.80 M/uL [facility] HGB 13.6 12.0 - 15.0 g/dL [facility] HCT 42.2 36.0 - 46.0 % [facility] PLT 233 130 - 400 K/uL [facility] MCV 92.3 79.0 - 98.0 fL [facility] MCH 29.8 27.0 - 34.8 pg [facility] MCHC 32.2 31.5 - 36.0 g/dL [facility] RDW 13.5 10.8 - 14.6 % [facility] MPV 11.5 9.4 - 12.4 fl [facility] NRBC 0.00 0.00 /100 WBCs [facility] ABSOLUTE NRBC 0.00 0.00 K/uL [facility] Blood 09/01/2018 7:27 AM EST 09/01/2018 7:34 AM EST us Jorje La MD LAB BLOOD ORDERABLES Fin al Result Performing Organization Address [facility]/ZIP Co de Phone Number [address] [address] * (ABNORMAL) Valproic acid (09/01/2018 7:27 AM EST) VALPROIC ACID 38.2(L) 50.0 - 100.0 ug/mL [facility] Blood 09/01/2018 7:27 AM EST 09/01/2018 7:34 AM EST Jorje La MD LAB BLOOD ORDERABLES Fin al Result Performing Organization Address [facility] Co de Phone Number [address] [address] * (ABNORMAL) Hemoglobin A1c (09/01/2018 7:27 AM EST) HEMOGLOBIN A1C 6.0(H) 4.3 - 5.8 % [facility] Blood 09/01/2018 7:27 AM EST 09/01/2018 7:34 AM EST Jorje La MD LAB BLOOD ORDERABLES Fin al Result Performing Organization Address [facility] Co de Phone Number [address] [address] * (ABNORMAL) Comprehensive metabolic panel (09/01/2018 7:27 AM EST) SODIUM 141 133 - 146 mmol/L [facility] POTASSIUM 5.3(H) 3.3 - 5.1 mmol/L [facility] CHLORIDE 99 96 - 108 mmol/L [facility] CO2 29 21 - 35 mmol/L [facility] BUN 26(H) 6 - 19 mg/dL [facility] CREATININE 0.70 0.5 - 1.5 mg/dL [facility] GLUCOSE 90 70 - 99 mg/dL [facility] ALBUMIN 4.5 3.9 - 4.8 g/dL [facility] TOTAL PROTEIN 7.1 6.5 - 8.0 g/dL [facility] CALCIUM 10.0 8.4 - 10.3 mg/dL [facility] ALKALINE PHOSPHATASE 83 39 - 117 U/L [facility] TOTAL BILIRUBIN 0.2 0.0 - 1.2 mg/dL [facility] AST 21 0 - 37 U/L [facility] ALT 30 0 - 40 U/L [facility] GLOBULIN 2.6 1 - 4.8 g/dL [facility] EGFR 89 >59 mL/min/1.7 3m2 [facility] Comment:If patient is black, multiply result by 1.159. Estimated glomerular filtration rate calculated using the CKD-EPI equation. ANION GAP 18 10 - 20 mmol/L [facility] Blood 09/01/2018 7:27 AM EST 09/01/2018 7:34 AM EST us Jorje La MD LAB BLOOD ORDERABLES Fin al Result Performing Organization Address City/State/[facility] Co de Phone Number [address] [address] documented in this encounter Visit Diagnoses Diagnosis Mood disorder- Primary Unspecified episodic mood disorder documented in this encounter Care Teams Chicken Cutter Relationship Specialty Start Date End Date Elizabeth Moore MD [address] [place] [address] PCP - General Internal Medicine 09/21/17 documented as of this encounter Additional Source Comments The information contained in this document represents components of the legal health record. It is not the complete legal health record.[facility]
[2025-04-25 16:30] VITALS: BP 171/99; PULSE 82; RESP 20; TEMP 37; O2SAT 96
[2025-04-25 16:34] VITALS: BP 171/99; PULSE 82; RESP 20; TEMP 37; O2SAT 96
[2025-04-25 17:09] LABS: Lipase 15 U/L (8-78)
== END 2025-04-25 16:34 | disposition home or self-care (01) ==
PROVIDERS: Registered Nurse Emergency; Emergency Provider Emergency Medicine; PCP Internal Medicine
DX: M54.50 Low back pain, unspecified (principal); I10 Essential (primary) hypertension; Z79.899 Other long term (current) drug therapy
CPT/HCPCS: 36415; 72100; 80053; 83690; 85025; 85652; 86140; 99283; 99284

== ENCOUNTER → 2025-04-25 11:14 | Outpatient (BNV) | payer MEDICARE, OTHER, SELFPAY | PROVIDERS: PCP Internal Medicine; Visit Provider Radiology Diagnostic Radiology | DX: M54.50 Low back pain, unspecified (principal) | CPT/HCPCS: 72100 ==

== ENCOUNTER 2025-05-24 15:29 | Outpatient (AMB) | payer MEDICARE, OTHER, SELFPAY ==
--- NOTE | 2025-05-24 12:47 | MHC.OFFVISPS ---
Intake Intake Visit Reasons: depression Allergies sulfamethoxazole (From Bactrim) Allergy (Mild, Verified 04/25/25 11:09) Rash trimethoprim (From Bactrim) Allergy (Mild, Verified 04/25/25 11:09) Rash HPI- Psychiatric Chief Complaint: depression HPI Narrative: Pt seen in f/u had difficult [place] [facility] felt she was not physically examined properly despite being documented in the medical record that she did observe patient did make a complaint. She is disappointed in the care that she received. Patient does have significant chronic pain and there is difficulty regarding this she did have a fall when she tripped going up stairs. Her main injury is covered by workman's comp and has difficulty getting any additional treatment or workup. Patient was quite upset anxious angry after visit in the emergency room is feeling somewhat better now. She continues on mirtazapine limited gabapentin use of Valium 2 mg may be once a week. She is aware of fall risk states she is quite cautious Past Psychiatric History: hx hospitalization recurrent depression anxiety hx hospitalization and tms Mental Status Exam Mental Status Exam Patient Appearance: Well Grooomed Patient Orientation: Person, Place, Time and Situation Level of Consciousness: Awake and Appropriate Patient Behavior: Appropriate Mood Description: Sad and Apprehensive Affect Description: Appropriate, Constricted and Angry Patient Cognition Impaired: No Ability to Follow Directions: Good Speech Pattern: Clear Memory Description: Intact Hallucinations: None Delusions: Not Present Thought Process: Intact and Goal Oriented Thought Content: positive for Obsessional Thoughts, positive for Goal Oriented, positive for Preoccupation, negative for Suicidal Ideation or negative for Homicidal Ideation Depressive Symptoms: Increased Anxiety, Loss of Int. in Activity, Loss of Energy and Back Pain Judgement: Fair Judgement and Insight: Some sense of hopelessness and discouragement regarding chronic pain . Did feel quite disappointed by care recently in the emergency room she is pursuing this through the complaint line Assessment and Plan Assessment & Plan (1) Generalized anxiety disorder: Status: Acute Code(s): F41.1 - Generalized anxiety disorder (2) Dysthymia: Status: Acute Code(s): F34.1 - Dysthymic disorder Plan Patient seen with her to feel supported by empathic listening and feeling discouraged after falling many hours in the emergency room she had a minimal physical evaluation and documented physical she states was not what was done. Patient states she needs to pursue issues related to her back this can be quite discouraging. No active SI patient appears to be back toward something of her baseline was more irritable and dysphoric for a period of time adult not hurt in treated properly Counseling and coordination of Care Details-Self Mgmt counseling: Issues related to chronic pain and management feeling recently failed but healthcare system Medication management counseling: Effectiveness Diagnosis and Prognosis Counseling: Impact of diagnosis on life functions Details: I spent [35] minutes reviewing the record, seeing the patient and documenting in the medical record. Counseling provided to the patient/caregiver as outlined below. Addressed patient/caregiver concerns regarding current medication regime including effective adherence. Addressed patient/caregiver concerns regarding diagnosis and prognosis including accuracy of diagnosis, prognosis over time, impact of diagnosis. Addressed patient/caregiver concerns regarding impact of recent stressors. [facility] Medical History Generalized anxiety disorder Depression, major, severe recurrence Other and unspecified hyperlipidemia Essential hypertension Atherosclerotic cardiovascular disease Surgical History Status post laminectomy S/P lumbar fusion S/P insertion of spinal cord stimulator (~11/2021) History of cardiac catheterization Family History Father No problems noted. Mother No problems noted. 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 Patient has had some degree of chronic interpersonal discord and reactivity chronic self-esteem issues Substance History: None Trauma History: neg Coding Level of Care Code Est Pt Level 3 (41346) Therapy 30m w/E&M (13192) Diagnoses Generalized anxiety disorder F41.1 Dysthymia F34.1
--- OUTSIDE RECORDS SUMMARY | 2025-05-24 15:31 | XMS_ITS | Encounter Summary ---
Author Organization [facility] Address [address] [place] [address] [place] [address] Phone Care Team Providers Care Rn Unit Manager Name Role Phone Elizabeth Moore MD Primary Care Provider Encounter Details Date Type Department Care Team (Latest Contact Info) Description 04/19/2019 Transcribe Orders [facility] [address] [place] [address] Jorje La MD [address] [place] [address] Bipolar affective disorder, remission status unspecified (Primary [...] VALPROIC ACID 52.3 50.0 - 100.0 ug/mL [facility] Blood 04/19/2019 7:43 AM EDT 04/19/2019 7:47 AM EDT Jorje La MD LAB BLOOD ORDERABLES Fin al Result [address] [address] * (ABNORMAL) Comprehensive metabolic panel (04/19/2019 7:43 AM EDT) SODIUM 142 133 - 146 mmol/L [facility] POTASSIUM 5.2(H) 3.3 - 5.1 mmol/L [facility] CHLORIDE 100 96 - 108 mmol/L [facility] CO2 30 21 - 35 mmol/L [facility] BUN 17 6 - 19 mg/dL [facility] CREATININE 0.60 0.5 - 1.5 mg/dL [facility] GLUCOSE 94 70 - 99 mg/dL [facility] ALBUMIN 4.3 3.9 - 4.8 g/dL [facility] TOTAL PROTEIN 6.9 6.5 - 8.0 g/dL [facility] CALCIUM 9.3 8.4 - 10.3 mg/dL [facility] ALKALINE PHOSPHATASE 75 39 - 117 U/L [facility] TOTAL BILIRUBIN 0.3 0.0 - 1.2 mg/dL [facility] AST 26 0 - 37 U/L [facility] ALT 21 0 - 40 U/L [facility] GLOBULIN 2.6 1 - 4.8 g/dL [facility] EGFR 93 >59 mL/min/1.7 3m2 [facility] Comment:If patient is black, multiply result by 1.159. Estimated glomerular filtration rate calculated using the CKD-EPI equation. ANION GAP 17 10 - 20 mmol/L [facility] Blood 04/19/2019 7:43 AM EDT 04/19/2019 7:47 AM EDT us Jorje La MD LAB BLOOD ORDERABLES Fin al Result [address] [address] documented in this encounter Visit Diagnoses Diagnosis Bipolar affective disorder, remission status unspecified- Primary documented in this encounter Care Teams Rn Unit Manager Relationship Specialty Start Date End Date Elizabeth Moore MD [address] [place] [address] [place] [address] PCP - General Internal Medicine 09/21/17 documented as of this encounter Additional Source Comments The information contained in this document represents components of the legal health record. It is not the complete legal health record.[facility]
--- OUTSIDE RECORDS SUMMARY | 2025-05-24 15:31 | XMS_ITS | Encounter Summary ---
Author Organization [facility] Address [address] [facility] [address] [place] [address] Phone Care Team Providers Care Supervisory Lifeguard Name Role Phone Elizabeth Moore MD Primary Care Provider Encounter Details Date Type Department Care Team (Late st Contact Info) Description 10/06/2022 Transcribe Orders [facility] [address] [place] [address] Ruddy Oconnell MD [address] [address] Social History Tobacco Use Types Packs/Day Years [...] on filedocumented in this encounter Care Teams Supervisory Lifeguard Relationship Specialty Start Date End Date Elizabeth Moore MD [address] [facility] [address] [place] [address] PCP - General Internal Medicine 09/21/17 documented as of this encounter Additional Source Comments The information contained in this document represents components of the legal health record. It is not the complete legal health record.[facility]
--- OUTSIDE RECORDS SUMMARY | 2025-05-24 15:31 | XMS_ITS | Encounter Summary ---
Author Organization [facility] Address [address] [place] [address] Phone Care Team Providers Care Marking Stitcher Name Role Phone Elizabeth Moore MD Primary Care Provider Reason for Referral * Physical Therapy (Within 3 days (urgent)) - Closed Specialty Diagnoses / Procedures Referred By Elena tan Referred To Contact Physical Therapy Diagnoses Encounter for rehabilitation System, Provider Not In, PhD [address] [address] Phone: tel: Referral ID Status Reason Start Date Expiration Date Visits Re quested Visits Authorized [id number] Closed 09/21/2017 08/21/2018 25 25 Encounter Details Date Type Department Care Team (Latest Contact Info) Description 09/21/2017 Transcribe Orders [facility] [address] [place] [address] Bill Brown PA [address] [address] Encounter for rehabilitation (Primary Dx) Social History [...] Diagnoses Orde r Schedule Ambulatory referral to [facility] Physical Therapy Outpatient Referral Routine Encounter for rehabilitation Ordered: 09/21/2017 documented as of this encounter Visit Diagnoses Diagnosis Encounter for rehabilitation- Primary documented in this encounter Care Teams Marking Stitcher Relationship Specialty Start Date End Date Elizabeth Moore MD [address] [place] [address] PCP - General Internal Medicine 09/21/17 documented as of this encounter Additional Source Comments The information contained in this document represents components of the legal health record. It is not the complete legal health record.[facility]
--- OUTSIDE RECORDS SUMMARY | 2025-05-24 15:31 | XMS_ITS | Clinical Summary ---
Author Organization [facility] Address [address] [place] [address] Phone Care Team Providers Care Supervisor [employer] Name Role Phone Elizabeth Moore MD Primary [...] 8 HOURS NEEDED FOR PAIN 1 Active [id number]-C 100-7.5-2.691 gram PwPk Active Active Problems [...] EST) SODIUM 141 133 - 146 mmol/L [facility] POTASSIUM 4.9 3.3 - 5.1 mmol/L [facility] CHLORIDE 102 96 - 108 mmol/L [facility] CO2 28 21 - 35 mmol/L [facility] BUN 17 6 - 19 mg/dL [facility] CREATININE 0.70 0.5 - 1.5 mg/dL [facility] GLUCOSE 125(H) 70 - 99 mg/dL [facility] ALBUMIN 4.5 3.9 - 4.8 g/dL [facility] TOTAL PROTEIN 7.1 6.5 - 8.0 g/dL [facility] CALCIUM 9.5 8.4 - 10.3 mg/dL [facility] ALKALINE PHOSPHATASE 112 39 - 117 U/L [facility] TOTAL BILIRUBIN 0.4 0.0 - 1.2 mg/dL [facility] AST 27 0 - 37 U/L [facility] ALT 50(H) 0 - 40 U/L [facility] GLOBULIN 2.6 1 - 4.8 g/dL [facility] EGFR 91 >59 mL/min/1.7 3m2 [facility] Comment:Estimated glomerular filtration rate calculated using the CKD-EPI refit equation. ANION GAP 16 10 - 20 mmol/L [facility] Blood 08/21/2024 8:00 AM EST 08/21/2024 8:03 AM EST us Elizabeth Moore MD LAB BLOOD ORDERABLES F inal Result [facility] [address] [place] [address] * (ABNORMAL) Lipid panel (08/21/2024 8:00 AM EST) HDL 57 mg/dL [facility] Comment: Interpretation <40 mg/dL: Low HDL cholesterol (major risk factor for CHD) Greater than or equal to 60 mg/dL: High HDL cholesterol ( negative risk factor for CHD) HDL - cholesterol is affected by a number of factors, e.g. smoking, excerise, hormones, sex and age. CHOLESTEROL 163 0 - 240 mg/dL [facility] TRIGLYCERIDES 212(H) 30 - 160 mg/dL [facility] LDL 64 50 - 129 mg/dL [facility] Comment: LDL levels in terms of risk for coronary heart disease: <100 mg/dL: Optimal 100-129 mg/dL: Near or above optimal 130-159 mg/dL: Borderline high 160-189 mg/dL: High >190 mg/dL: Very High CARDIAC RISK RATIO 2.9(L) 3.3 - 4.4 C [facility] Blood 08/21/2024 8:00 AM EST 08/21/2024 8:03 AM EST us Elizabeth Moore MD LAB BLOOD ORDERABLES F inal Result [facility] [address] [place] [address] from Last 3 Months or Most Recently Relevant to Health Maintenance Insurance MEDICARE PART A & B [facility] MEDICARE SUPPLEMENT MEDICARE PART A & B [facility] MEDICARE SUPPLEMENT MEDICARE PART A & B MEDICARE SUPPLEMENT MEDICARE PART A & B MEDICARE SUPPLEMENT MEDICARE PART A & B MEDICARE SUPPLEMENT MEDICARE PART A & B MEDICARE SUPPLEMENT MEDICARE PART A & B MEDICARE SUPPLEMENT MEDICARE PART A & B Member Subscriber Plan / Payer ( fective 2015-) Name:Ximena Larkin Member ID:[id number] Relation to Subscriber:Self Name:Ximena Larkin Subscriber ID:[id number] Payer ID:[id number] Group ID:Not on file Type:Medicare Address: [employer] [facility] [place] [address] [facility] MEDICARE SUPPLEMENT MEDICARE PART A & B [facility] MEDICARE SUPPLEMENT [facility] Care Teams Supervisor [employer] Relationship Specialty Start Date End Date Elizabeth Moore MD [address] [place] [address] PCP - General Internal Medicine 09/21/17 Additional Source Comments The information contained in this document represents components of the legal health record. It is not the complete legal health record.[facility]
--- OUTSIDE RECORDS SUMMARY | 2025-05-24 15:31 | XMS_ITS | Encounter Summary ---
Author Organization [facility] Address [address] [facility] [address] [place] [address] Phone Care Team Providers Care Senior Linux Unix Engineer Name Role Phone Elizabeth Moore MD Primary Care Provider Encounter Details Date Type Department Care Team ([facility] st Contact Info) Description 05/26/2020 Transcribe Orders [facility] [address] [place] [address] Sd Holloway MD [address] [place] [address] Social History Tobacco Use Types Packs/Day Years [...] on filedocumented in this encounter Care Teams Senior Linux Unix Engineer Relationship Specialty Start Date End Date Elizabeth Moore MD [address] [facility] [address] [place] [address] PCP - General Internal Medicine 09/21/17 documented as of this encounter Additional Source Comments The information contained in this document represents components of the legal health record. It is not the complete legal health record.[facility]
--- OUTSIDE RECORDS SUMMARY | 2025-05-24 15:31 | XMS_ITS | Encounter Summary ---
Author Organization [facility] Address [address] [employer] [facility] [address] [place] [address] Phone Care Team Providers Care Shot Coat Tender Name Role Phone Elizabeth Moore MD Primary Care Provider Encounter Details Date Type Department Care Team (Latest Contact Info) Description 09/01/2018 Transcribe Orders [facility] [address] [place] [address] Jorje La MD [address] [place] [address] Mood disorder (Primary Dx) Social History Tobacco [...] EST) WBC 5.67 3.40 - 11.20 K/uL [facility] RBC 4.57 3.80 - 4.80 M/uL [facility] HGB 13.6 12.0 - 15.0 g/dL [facility] HCT 42.2 36.0 - 46.0 % [facility] PLT 233 130 - 400 K/uL [facility] MCV 92.3 79.0 - 98.0 fL [facility] MCH 29.8 27.0 - 34.8 pg [facility] MCHC 32.2 31.5 - 36.0 g/dL [facility] RDW 13.5 10.8 - 14.6 % [facility] MPV 11.5 9.4 - 12.4 fl [facility] NRBC 0.00 0.00 /100 WBCs [facility] ABSOLUTE NRBC 0.00 0.00 K/uL [facility] Blood 09/01/2018 7:27 AM EST 09/01/2018 7:34 AM EST us Jorje La MD LAB BLOOD ORDERABLES Fin al Result Performing Organization Address [facility]/ZIP Co de Phone Number [address] [address] * (ABNORMAL) Valproic acid (09/01/2018 7:27 AM EST) VALPROIC ACID 38.2(L) 50.0 - 100.0 ug/mL [facility] Blood 09/01/2018 7:27 AM EST 09/01/2018 7:34 AM EST Jorje La MD LAB BLOOD ORDERABLES Fin al Result Performing Organization Address [facility] Co de Phone Number [address] [address] * (ABNORMAL) Hemoglobin A1c (09/01/2018 7:27 AM EST) HEMOGLOBIN A1C 6.0(H) 4.3 - 5.8 % [facility] Blood 09/01/2018 7:27 AM EST 09/01/2018 7:34 AM EST Jorje La MD LAB BLOOD ORDERABLES Fin al Result Performing Organization Address [facility] Co de Phone Number [address] [address] * (ABNORMAL) Comprehensive metabolic panel (09/01/2018 7:27 AM EST) SODIUM 141 133 - 146 mmol/L [facility] POTASSIUM 5.3(H) 3.3 - 5.1 mmol/L [facility] CHLORIDE 99 96 - 108 mmol/L [facility] CO2 29 21 - 35 mmol/L [facility] BUN 26(H) 6 - 19 mg/dL [facility] CREATININE 0.70 0.5 - 1.5 mg/dL [facility] GLUCOSE 90 70 - 99 mg/dL [facility] ALBUMIN 4.5 3.9 - 4.8 g/dL [facility] TOTAL PROTEIN 7.1 6.5 - 8.0 g/dL [facility] CALCIUM 10.0 8.4 - 10.3 mg/dL [facility] ALKALINE PHOSPHATASE 83 39 - 117 U/L [facility] TOTAL BILIRUBIN 0.2 0.0 - 1.2 mg/dL [facility] AST 21 0 - 37 U/L [facility] ALT 30 0 - 40 U/L [facility] GLOBULIN 2.6 1 - 4.8 g/dL [facility] EGFR 89 >59 mL/min/1.7 3m2 [facility] Comment:If patient is black, multiply result by 1.159. Estimated glomerular filtration rate calculated using the CKD-EPI equation. ANION GAP 18 10 - 20 mmol/L [facility] Blood 09/01/2018 7:27 AM EST 09/01/2018 7:34 AM EST us Jorje La MD LAB BLOOD ORDERABLES Fin al Result Performing Organization Address City/State/[facility] Co de Phone Number [address] [address] documented in this encounter Visit Diagnoses Diagnosis Mood disorder- Primary Unspecified episodic mood disorder documented in this encounter Care Teams Shot Coat Tender Relationship Specialty Start Date End Date Elizabeth Moore MD [address] [place] [address] PCP - General Internal Medicine 09/21/17 documented as of this encounter Additional Source Comments The information contained in this document represents components of the legal health record. It is not the complete legal health record.[facility]
--- OUTSIDE RECORDS SUMMARY | 2025-05-24 15:31 | XMS_ITS | Encounter Summary ---
Author Organization [facility] Address [address] [place] [address] [place] [address] Phone Care Team Providers Care Certified Coding Specialist Name Role Phone Elizabeth Moore MD Primary Care Provider Encounter Details Date Type Department Care Team (Latest Contact Info) Description 01/02/[address] [facility] [address] [place] [phone] Jorje La MD [address] [place] [address] Bipolar affective disorder, remission status unspecified (Primary [...] EDT) LAMOTRIGINE 2.4(L) 4.0 - 18.0 mg/L [facility] Blood 01/02/2020 7:38 AM EDT 01/02/2020 8:57 AM EDT us Jorje La MD LAB BLOOD ORDERABLES Fin al Result [address] [address] * Vitamin B12 (01/02/2020 7:38 AM EDT) VITAMIN B12 525 232 - 1,245 pg/mL [facility] Blood 01/02/2020 7:38 AM EDT 01/02/2020 8:57 AM EDT us Jorje La MD LAB BLOOD ORDERABLES Fin al Result Performing Organization Address City/[facility]/ZIP Co de Phone Number [address] [address] * URINALYSIS WITH SEDIMENT (01/02/2020 7:38 AM EDT) WBC NONE SEEN NONE SEEN /hpf [facility] RBC NONE SEEN NONE SEEN /hpf [facility] URINE EPITHELIAL NONE SEEN NONE SEEN [facility] MUCUS NONE SEEN NONE SEEN /hpf [facility] BACTERIA NONE SEEN NONE SEEN /hpf [facility] COLOR Yellow Yellow [facility] CLARITY Clear [facility] GLUCOSE Negative Negative [facility] BILI Negative Negative [facility] KETONES Negative Negative [facility] SPECIFIC GRAVITY 1.015 1.005 - 1.030 [facility] BLOOD Negative Negative [facility] PH 6.0 5.0 - 8.0 [facility] Protein-UA Negative Negative [facility] NITRITE Negative Negative [facility] Leukocyte esterase, ur Negative Negative [facility] Urine (Urine) 01/02/2020 7:3 8 AM EDT 01/02/2020 8:58 AM EDT us Jorje La MD URINE ORDERABLES Final R esult Performing Organization Address City/[facility] Co de Phone Number [address] [address] * TSH (01/02/2020 7:38 AM EDT) TSH 1.86 0.27 - 4.20 uIU/mL [facility] Blood 01/02/2020 7:38 AM EDT 01/02/2020 8:57 AM EDT us Jorje La MD LAB BLOOD ORDERABLES Fin al Result Performing Organization Address [facility] Co de Phone Number [address] [address] * (ABNORMAL) Hemoglobin A1c (01/02/2020 7:38 AM EDT) HEMOGLOBIN A1C 6.4(H) 4.3 - 5.8 % [facility] Blood 01/02/2020 7:38 AM EDT 01/02/2020 8:57 AM EDT us Jorje La MD LAB BLOOD ORDERABLES Fin al Result Performing Organization Address [facility] de Phone Number [address] [address] * Free T4 (01/02/2020 7:38 AM EDT) FREE T4 1.3 0.9 - 1.7 ng/dL [facility] Blood 01/02/2020 7:38 AM EDT 01/02/2020 8:57 AM EDT us Jorje La MD LAB BLOOD ORDERABLES Fin al Result Performing Organization Address [facility] de Phone Number [address] [address] * (ABNORMAL) Folate (01/02/2020 7:38 AM EDT) FOLIC ACID >20.0(H) 4.2 - 19.9 ng/mL [facility] Blood 01/02/2020 7:38 AM EDT 01/02/2020 8:57 AM EDT Jorje La MD LAB BLOOD ORDERABLES Fin al Result [address] [address] * C-Reactive Protein (01/02/2020 7:38 AM EDT) C REACTIVE PROTEIN 0.5 0.0 - 4.0 mg/L [facility] Blood 01/02/2020 7:38 AM EDT 01/02/2020 8:57 AM EDT us Jorje La MD LAB BLOOD ORDERABLES Fin al Result Performing Organization Address City/[facility]/ZIP Co de Phone Number [address] [address] * (ABNORMAL) Comprehensive metabolic panel (01/02/2020 7:38 AM EDT) SODIUM 142 133 - 146 mmol/L [facility] POTASSIUM 4.6 3.3 - 5.1 mmol/L [facility] CHLORIDE 101 96 - 108 mmol/L [facility] CO2 28 21 - 35 mmol/L [facility] BUN 20(H) 6 - 19 mg/dL [facility] CREATININE 0.70 0.5 - 1.5 mg/dL [facility] GLUCOSE 116(H) 70 - 99 mg/dL [facility] ALBUMIN 4.8 3.9 - 4.8 g/dL [facility] TOTAL PROTEIN 7.6 6.5 - 8.0 g/dL [facility] CALCIUM 10.0 8.4 - 10.3 mg/dL [facility] ALKALINE PHOSPHATASE 83 39 - 117 U/L [facility] TOTAL BILIRUBIN 0.3 0.0 - 1.2 mg/dL [facility] AST 28 0 - 37 U/L [facility] ALT 28 0 - 40 U/L [facility] GLOBULIN 2.8 1 - 4.8 g/dL [facility] EGFR 88 >59 mL/min/1.7 3m2 [facility] Comment:If patient is black, multiply result by 1.159. Estimated glomerular filtration rate calculated using the CKD-EPI equation. ANION GAP 18 10 - 20 mmol/L [facility] Blood 01/02/2020 7:38 AM EDT 01/02/2020 8:57 AM EDT us Jorje La MD LAB BLOOD ORDERABLES Fin al Result [facility] [address] [place] [address] * CBC and differential (01/02/2020 7:38 AM EDT) WBC 6.42 4.00 - 11.00 K/uL [facility] Comment:Note Reference Range updates to all CBC and Differential results. RBC 4.57 3.72 - 5.30 M/uL [facility] HGB 13.7 11.4 - 15.9 g/dL [facility] Comment:Note updated Referen ce Ranges for all CBC and Differential results. HCT 41.3 34.2 - 46.8 % [facility] PLT 265 140 - 430 K/uL [facility] MCV 90.4 78.0 - 97.0 [facility] MCH 30.0 25.0 - 33.0 pg [facility] MCHC 33.2 32.0 - 36.0 g/dL [facility] RDW 14.0 11.0 - 16.0 % [facility] MPV 11.5 8.4 - 12.8 [facility] NRBC 0.00 0 /100 WBCs [facility] ABSOLUTE NRBC 0.00 0 K/uL [facility] DIFF METHOD Auto [facility] NEUTS 55.8 43.0 - 75.0 % [facility] LYMPHS 34.0 18.2 - 47.4 % [facility] MONOS 6.9 4.00 - 11.00 % [facility] EOS 2.2 0.0 - 8.0 % [facility] BASOS 0.6 0.0 - 2.0 % [facility] Granulocytes, immature (%) 0.5 0.0 - 0.9 % [facility] ABSOLUTE NEUTS 3.59 1.80 - 7.70 K/uL [facility] ABSOLUTE LYMPHS 2.18 1.00 - 3.10 K/uL [facility] ABSOLUTE MONOS 0.44 0.20 - 0.80 K/uL [facility] ABSOLUTE EOS 0.14 0.00 - 0.80 K/uL [facility] ABSOLUTE BASOS 0.04 0.00 - 0.09 K/uL [facility] Granulocytes, immature 0.03 0.00 - 0.05 K/uL [facility] Blood 01/02/2020 7:38 AM EDT 01/02/2020 8:57 AM EDT us Jorje La MD LAB BLOOD ORDERABLES Fin al Result [facility] [address] [place] [address] documented in this encounter Visit Diagnoses Diagnosis Bipolar affective disorder, remission status unspecified- Primary Medication monitoring encounter Encounter for therapeutic drug monitoring Impaired fasting glucose Impaired fasting glucose documented in this encounter Care Teams Certified Coding Specialist Relationship Specialty Start Date End Date Elizabeth Moore MD [address] [place] [address] PCP - General Internal Medicine 09/21/17 documented as of this encounter Additional Source Comments The information contained in this document represents components of the legal health record. It is not the complete legal health record.[facility]
--- OUTSIDE RECORDS SUMMARY | 2025-05-24 15:31 | XMS_ITS | Encounter Summary ---
Author Organization [facility] Address [address] [facility] [address] [place] [address] Phone Care Team Providers Care Instructor Creeler Name Role Phone Elizabeth Moore MD Primary Care Provider Encounter Details Date Type Department Care Team (Latest Contact Info) Description 05/11/2019 Transcribe Orders [facility] [address] [place] [phone] Jorje La MD [address] [place] [address] Bipolar affective disorder, remission status unspecified (Primary [...] EDT) WBC 4.68 3.40 - 11.20 K/uL [facility] RBC 4.39 3.80 - 4.80 M/uL [facility] HGB 13.5 12.0 - 15.0 g/dL [facility] HCT 41.0 36.0 - 46.0 % [facility] PLT 204 130 - 400 K/uL [facility] MCV 93.4 79.0 - 98.0 fL [facility] MCH 30.8 27.0 - 34.8 pg [facility] MCHC 32.9 31.5 - 36.0 g/dL [facility] RDW 13.5 10.8 - 14.6 % [facility] MPV 11.9 9.4 - 12.4 fl [facility] NRBC 0.00 0.00 /100 WBCs [facility] ABSOLUTE NRBC 0.00 0.00 K/uL [facility] DIFF METHOD Auto [facility] NEUTS 54.8 45.30 - 77.70 % [facility] LYMPHS 33.5 12.30 - 39.70 % [facility] MONOS 7.9 4.10 - 12.80 % [facility] EOS 3.0 0 - 7.2 % [facility] BASOS 0.6 0 - 2.80 % [facility] Granulocytes, immature (%) 0.2 0.0 - 0.9 % [facility] ABSOLUTE NEUTS 2.56 1.40 - 7.70 K/uL [facility] ABSOLUTE LYMPHS 1.57 0.60 - 3.20 K/uL [facility] ABSOLUTE MONOS 0.37 0.11 - 0.59 K/uL [facility] ABSOLUTE EOS 0.14 0.01 - 0.50 K/uL [facility] ABSOLUTE BASOS 0.03 0.00 - 0.08 K/uL [facility] Granulocytes, immature 0.01 0.00 - 0.05 K/uL [facility] Blood 05/11/2019 7:44 AM EDT 05/11/2019 7:48 AM EDT us Jorje La MD LAB BLOOD ORDERABLES Fin al Result [facility] [address] [place] [address] * (ABNORMAL) Valproic acid (05/11/2019 7:44 AM EDT) VALPROIC ACID 35.2(L) 50.0 - 100.0 ug/mL [facility] Blood 05/11/2019 7:44 AM EDT 05/11/2019 7:48 AM EDT us Jorje La MD LAB BLOOD ORDERABLES Fin al Result Performing Organization Address City/[facility]/ZIP Co de Phone Number [address] [address] * (ABNORMAL) Comprehensive metabolic panel (05/11/2019 7:44 AM EDT) SODIUM 141 133 - 146 mmol/L [facility] POTASSIUM 4.4 3.3 - 5.1 mmol/L [facility] CHLORIDE 99 96 - 108 mmol/L [facility] CO2 32 21 - 35 mmol/L [facility] BUN 16 6 - 19 mg/dL [facility] CREATININE 0.60 0.5 - 1.5 mg/dL [facility] GLUCOSE 104(H) 70 - 99 mg/dL [facility] ALBUMIN 4.3 3.9 - 4.8 g/dL [facility] TOTAL PROTEIN 6.9 6.5 - 8.0 g/dL [facility] CALCIUM 9.3 8.4 - 10.3 mg/dL [facility] ALKALINE PHOSPHATASE 80 39 - 117 U/L [facility] TOTAL BILIRUBIN 0.3 0.0 - 1.2 mg/dL [facility] AST 22 0 - 37 U/L [facility] ALT 24 0 - 40 U/L [facility] GLOBULIN 2.6 1 - 4.8 g/dL [facility] EGFR 93 >59 mL/min/1.7 3m2 [facility] Comment:If patient is black, multiply result by 1.159. Estimated glomerular filtration rate calculated using the CKD-EPI equation. ANION GAP 14 10 - 20 mmol/L [facility] Blood 05/11/2019 7:44 AM EDT 05/11/2019 7:48 AM EDT us Jorje La MD LAB BLOOD ORDERABLES Fin al Result Performing Organization Address City/[facility]/ZIP Co de Phone Number [address] [phone] documented in this encounter Visit Diagnoses Diagnosis Bipolar affective disorder, remission status unspecified- Primary documented in this encounter Care Teams Instructor Creeler Relationship Specialty Start Date End Date Elizabeth Moore MD [facility] [address] [address] PCP - General Internal Medicine 09/21/17 documented as of this encounter Additional Source Comments The information contained in this document represents components of the legal health record. It is not the complete legal health record.[facility]
--- OUTSIDE RECORDS SUMMARY | 2025-05-24 15:31 | XMS_ITS | Clinical Summary ---
Author Organization [facility] [place] [address] Care Team Providers Care On Site Nurse Name Role Phone Unavailable Primary Care Provider Unavailabl e Social History Tobacco Use Types Packs/Day Years Used Date Smoking Tobacco: Never Assessed Comments Unknown Sex and Gender Information Value Date Recorded Sex Assigned at Not on file Legal Sex Female 6:50 PM EST Gender Identity Not on file Sexual Orientation Not on file Plan of Treatment Health Maintenance Due Date Last Done Comments Colorectal Cancer Screening: Colonoscopy 1950 DTaP,Tdap,and Td Vaccines (1 - Tdap) 1969 Pneumococcal Vaccine: 50+ Ye ars (1 of 1 - PCV) 02/22/2000 Zoster Vaccines (1 of 2) 02/22/2000 Falls Risk Assessment 07/24/2022 Hepatitis C Screening 07/24/2022 Osteoporosis Screening (Bone Density Screening) 07/24/2022 Social Influencers of Health Screening 07/24/2022 Depression Screening 08/22/2024 RSV Immunization Adult Patie nts (1 - 1-dose 75+ series) 2025 COVID-19 Vaccine ( - 2023-2 5 season) 2025 Influenza Vaccine (#1) 2025 HIB Vaccines [...]
--- OUTSIDE RECORDS SUMMARY | 2025-05-24 15:31 | XMS_ITS | Encounter Summary ---
Author Organization [facility] Address [address] [facility] [address] [place] [address] Phone Care Team Providers Care Cyber Software Engineer Name Role Phone Elizabeth Moore MD Primary Care Provider Encounter Details Date Type Department Care Team (Latest Contact Info) Description 09/29/2018 Transcribe Orders [facility] [address] [place] [address] Ruddy Oconnell MD [address] [place] [address] Precordial pain (Primary Dx) Social History Tobacco [...] EST) SODIUM 139 133 - 146 mmol/L [facility] CHLORIDE 97 96 - 108 mmol/L [facility] POTASSIUM 5.3(H) 3.3 - 5.1 mmol/L [facility] CO2 33 21 - 35 mmol/L [facility] BUN 17 6 - 19 mg/dL [facility] CREATININE 0.50 0.5 - 1.5 mg/dL [facility] GLUCOSE 96 70 - 99 mg/dL [facility] CALCIUM 9.2 8.4 - 10.3 mg/dL [facility] EGFR 99 >59 mL/min/1.7 3m2 [facility] Comment:If patient is black, multiply result by 1.159. Estimated glomerular filtration rate calculated using the CKD-EPI equation. ANION GAP 14 10 - 20 mmol/L [facility] Blood 09/29/2018 10:3 7 AM EST 09/29/2018 12:31 PM EST Ruddy Oconnell MD LAB BLOOD ORDERABLES nal Result Performing Organization Address [facility]/ZIP Co de Phone Number [address] [address] * PT-INR (09/29/2018 10:37 AM EST) PT 10.6 10.2 - 12.9 sec [facility] INR 0.9 0.9 - 1.1 [facility] Comment:Therapeutic range fo r oral Vitamin K antagonists: 2.0-3.5 Blood 09/29/2018 10:3 7 AM EST 09/29/2018 12:31 PM EST Ruddy Oconnell MD LAB BLOOD ORDERABLES nal Result Performing Organization Address [facility]/ZIP Co de Phone Number [address] [address] * CBC and differential (09/29/2018 10:37 AM EST) WBC 6.14 3.40 - 11.20 K/uL [facility] RBC 4.24 3.80 - 4.80 M/uL [facility] HGB 12.8 12.0 - 15.0 g/dL [facility] HCT 39.2 36.0 - 46.0 % [facility] PLT 238 130 - 400 K/uL [facility] MCV 92.5 79.0 - 98.0 fL [facility] MCH 30.2 27.0 - 34.8 pg [facility] MCHC 32.7 31.5 - 36.0 g/dL [facility] RDW 13.4 10.8 - 14.6 % [facility] MPV 11.0 9.4 - 12.4 fl [facility] NRBC 0.00 0.00 /100 WBCs [facility] ABSOLUTE NRBC 0.00 0.00 K/uL [facility] DIFF METHOD Auto [facility] NEUTS 55.1 45.30 - 77.70 % [facility] LYMPHS 32.2 12.30 - 39.70 % [facility] MONOS 7.3 4.10 - 12.80 % [facility] EOS 4.4 0 - 7.2 % [facility] BASOS 0.7 0 - 2.80 % [facility] Granulocytes, immature (%) 0.3 0.0 - 0.9 % [facility] ABSOLUTE NEUTS 3.38 1.40 - 7.70 K/uL [facility] ABSOLUTE LYMPHS 1.98 0.60 - 3.20 K/uL [facility] ABSOLUTE MONOS 0.45 0.11 - 0.59 K/uL [facility] ABSOLUTE EOS 0.27 0.01 - 0.50 K/uL [facility] ABSOLUTE BASOS 0.04 0.00 - 0.08 K/uL [facility] Granulocytes, immature 0.02 0.00 - 0.05 K/uL [facility] Blood 09/29/2018 10:3 7 AM EST 09/29/2018 12:31 PM EST Ruddy Oconnell MD LAB BLOOD ORDERABLES Fi nal Result Performing Organization Address City/State/[facility] Co de Phone Number [facility] [address] [place] [address] documented in this encounter Visit Diagnoses Diagnosis Precordial pain- Primary documented in this encounter Care Teams Cyber Software Engineer Relationship Specialty Start Date End Date Elizabeth Moore MD [address] [place] [phone] PCP - General Internal Medicine 09/21/17 documented as of this encounter Additional Source Comments The information contained in this document represents components of the legal health record. It is not the complete legal health record.[facility]
--- OUTSIDE RECORDS SUMMARY | 2025-05-24 15:31 | XMS_ITS | Encounter Summary ---
Author Organization [facility] Address [address] [facility] [address] [place] [address] Phone Care Team Providers Care District Manager Postal Service Name Role Phone Elizabeth Moore MD Primary Care Provider Encounter Details Date Type Department Care Team (Latest Contact Info) Description 09/24/2019 Transcribe Orders [facility] [address] [place] [phone] Elizabeth Moore MD [address] [facility] [address] [place] [address] Essential hypertension, malignant (Primary Dx); Atherosclerosis of tanacross coronary artery, angina presence unspecified, unspecified whether tanacross or transplanted heart; Pure hypercholesterolemia; Avitaminosis D [...] D (TOTAL) 41 30 - 60 ng/mL [facility] Blood 09/24/2019 7:42 AM EST 09/24/2019 8:51 AM EST us Elizabeth Moore MD LAB BLOOD ORDERABLES F inal Result [address] [address] * TSH (09/24/2019 7:42 AM EST) Pathologist [facility] TSH 1.50 0.27 - 4.20 uIU/mL [facility] Blood 09/24/2019 7:42 AM EST 09/24/2019 8:51 AM EST Elizabeth Moore MD LAB BLOOD ORDERABLES F inal Result Performing Organization Address [facility] Co de Phone Number [address] [address] * Free T4 (09/24/2019 7:42 AM EST) [facility] FREE T4 1.3 0.9 - 1.7 ng/dL [facility] Blood 09/24/2019 7:42 AM EST 09/24/2019 8:51 AM EST Elizabeth Moore MD LAB BLOOD ORDERABLES F inal Result Performing Organization Address [facility] Co de Phone Number [address] [address] * CBC and differential (09/24/2019 7:42 AM EST) Pathologist [facility] WBC 5.89 4.00 - 11.00 K/uL [facility] Comment:Note Reference Range updates to all CBC and Differential results. RBC 4.28 3.72 - 5.30 M/uL [facility] HGB 13.2 11.4 - 15.9 g/dL [facility] Comment:Note updated Referen ce Ranges for all CBC and Differential results. HCT 39.0 34.2 - 46.8 % [facility] PLT 232 140 - 430 K/uL [facility] MCV 91.1 78.0 - 97.0 fL [facility] MCH 30.8 25.0 - 33.0 pg [facility] MCHC 33.8 32.0 - 36.0 g/dL [facility] RDW 14.1 11.0 - 16.0 % [facility] MPV 12.2 8.4 - 12.8 fl [facility] NRBC 0.00 0 /100 WBCs [facility] ABSOLUTE NRBC 0.00 0 K/uL [facility] DIFF METHOD Auto [facility] NEUTS 59.0 43.0 - 75.0 % [facility] LYMPHS 29.2 18.2 - 47.4 % [facility] MONOS 7.1 4.00 - 11.00 % [facility] EOS 3.9 0.0 - 8.0 % [facility] BASOS 0.5 0.0 - 2.0 % [facility] Granulocytes, immature (%) 0.3 0.0 - 0.9 % [facility] ABSOLUTE NEUTS 3.47 1.80 - 7.70 K/uL [facility] ABSOLUTE LYMPHS 1.72 1.00 - 3.10 K/uL [facility] ABSOLUTE MONOS 0.42 0.20 - 0.80 K/uL [facility] ABSOLUTE EOS 0.23 0.00 - 0.80 K/uL [facility] ABSOLUTE BASOS 0.03 0.00 - 0.09 K/uL [facility] Granulocytes, immature 0.02 0.00 - 0.05 K/uL [facility] Blood 09/24/2019 7:42 AM EST 09/24/2019 8:51 AM EST us Elizabeth Moore MD LAB BLOOD ORDERABLES F inal Result [facility] [address] [place] [address] * (ABNORMAL) Lipid panel (09/24/2019 7:42 AM EST) HDL 48 mg/dL [facility] Comment: Interpretation <40 mg/dL: Low HDL cholesterol (major risk factor for CHD) Greater than or equal to 60 mg/dL: High HDL cholesterol ( negative risk factor for CHD) HDL - cholesterol is affected by a number of factors, e.g. smoking, excerise, hormones, sex and age. CHOLESTEROL 159 0 - 240 mg/dL [facility] TRIGLYCERIDES 174(H) 30 - 160 mg/dL [facility] LDL 76 50 - 129 mg/dL [facility] Comment: LDL levels in terms of risk for coronary heart disease: <100 mg/dL: Optimal 100-129 mg/dL: Near or above optimal 130-159 mg/dL: Borderline high 160-189 mg/dL: High >190 mg/dL: Very High CARDIAC RISK RATIO 3.3 3.3 - 4.4 [facility] Blood 09/24/2019 7:42 AM EST 09/24/2019 8:51 AM EST us Elizabeth Moore MD LAB BLOOD ORDERABLES F inal Result Performing Organization Address City/State/[facility] Co de Phone Number [address] [address] * (ABNORMAL) Comprehensive metabolic panel (09/24/2019 7:42 AM EST) SODIUM 142 133 - 146 mmol/L [facility] POTASSIUM 5.1 3.3 - 5.1 mmol/L [facility] CHLORIDE 101 96 - 108 mmol/L [facility] CO2 26 21 - 35 mmol/L [facility] BUN 18 6 - 19 mg/dL [facility] CREATININE 0.70 0.5 - 1.5 mg/dL [facility] GLUCOSE 108(H) 70 - 99 mg/dL [facility] ALBUMIN 4.4 3.9 - 4.8 g/dL [facility] TOTAL PROTEIN 6.9 6.5 - 8.0 g/dL [facility] CALCIUM 9.5 8.4 - 10.3 mg/dL [facility] ALKALINE PHOSPHATASE 89 39 - 117 U/L [facility] TOTAL BILIRUBIN 0.3 0.0 - 1.2 mg/dL [facility] AST 29 0 - 37 U/L [facility] ALT 28 0 - 40 U/L [facility] GLOBULIN 2.5 1 - 4.8 g/dL [facility] EGFR 88 >59 mL/min/1.7 3m2 [facility] Comment:If patient is black, multiply result by 1.159. Estimated glomerular filtration rate calculated using the CKD-EPI equation. ANION GAP 20 10 - 20 mmol/L [facility] Blood 09/24/2019 7:42 AM EST 09/24/2019 8:51 AM EST us Elizabeth Moore MD LAB BLOOD ORDERABLES F inal Result [facility] [address] [place] [address] documented in this encounter Visit Diagnoses Diagnosis Essential hypertension, malignant- Primary Atherosclerosis of [place] coronary artery, angina presence unspecified, unspecified whether [place] or transplanted heart Pure hypercholesterolemia Avitaminosis D Unspecified vitamin D deficiency documented in this encounter Care Teams District Manager Postal Service Relationship Specialty Start Date End Date Elizabeth Moore MD [facility] [address] [id number] PCP - General Internal Medicine 09/21/17 documented as of this encounter Additional Source Comments The information contained in this document represents components of the legal health record. It is not the complete legal health record.[facility]
== END 2025-05-24 15:30 | disposition home or self-care (01) ==
LOC: HO.HOP 15:29
PROVIDERS: PCP Internal Medicine; Visit Provider Psychiatry & Neurology Psychiatry
DX: F41.1 Generalized anxiety disorder (principal); F34.1 Dysthymic disorder
CPT/HCPCS: 90833; 99213

== ENCOUNTER → 2025-05-24 15:29 | Outpatient (BNVA) | payer MEDICARE, OTHER, SELFPAY | PROVIDERS: PCP Internal Medicine; Visit Provider Psychiatry & Neurology Psychiatry | DX: F41.1 Generalized anxiety disorder (principal); F34.1 Dysthymic disorder | CPT/HCPCS: 99212 ==

== ENCOUNTER 2025-06-28 10:31 | Outpatient (AMB) | payer MEDICARE, OTHER, SELFPAY ==
--- OUTSIDE RECORDS SUMMARY | 2025-06-28 12:24 | XMS_ITS | Encounter Summary ---
Author Organization [facility] Address Count includes the [facility] [address] [place] [phone] Phone Care Team Providers Care Site Supervisor Name Role Phone Elizabeth Moore MD Primary Care Provider Encounter Details Date Type Department Care Team (Latest Contact Info) Description 04/19/2019 Transcribe Orders [address] [address] Jorje La MD [address] [place] [address] Bipolar affective disorder, remission status unspecified (Primary [...] VALPROIC ACID 52.3 50.0 - 100.0 ug/mL [facility] Blood 04/19/2019 7:43 AM EDT 04/19/2019 7:47 AM EDT us Jorje La MD LAB BLOOD BKR ORDERABLES Final Result [address] [address] * (ABNORMAL) Comprehensive metabolic panel (04/19/2019 7:43 AM EDT) SODIUM 142 133 - 146 mmol/L [facility] POTASSIUM 5.2(H) 3.3 - 5.1 mmol/L [facility] CHLORIDE 100 96 - 108 mmol/L [facility] CO2 30 21 - 35 mmol/L [facility] BUN 17 6 - 19 mg/dL [facility] CREATININE 0.60 0.5 - 1.5 mg/dL [facility] GLUCOSE 94 70 - 99 mg/dL [facility] ALBUMIN 4.3 3.9 - 4.8 g/dL [facility] TOTAL PROTEIN 6.9 6.5 - 8.0 g/dL [facility] CALCIUM 9.3 8.4 - 10.3 mg/dL [facility] ALKALINE PHOSPHATASE 75 39 - 117 U/L [facility] TOTAL BILIRUBIN 0.3 0.0 - 1.2 mg/dL [facility] AST 26 0 - 37 U/L [facility] ALT 21 0 - 40 U/L [facility] GLOBULIN 2.6 1 - 4.8 g/dL [facility] EGFR 93 >59 mL/min/1.7 3m2 [facility] Comment:If patient is black, multiply result by 1.159. Estimated glomerular filtration rate calculated using the CKD-EPI equation. ANION GAP 17 10 - 20 mmol/L [facility] Blood 04/19/2019 7:43 AM EDT 04/19/2019 7:47 AM EDT us Jorje La MD LAB BLOOD BKR ORDERABLES Final Result [address] [address] documented in this encounter Visit Diagnoses Diagnosis Bipolar affective disorder, remission status unspecified- Primary documented in this encounter Care Teams Site Supervisor Relationship Specialty Start Date End Date Elizabeth Moore MD [address] [place] [address] PCP - General Internal Medicine 09/21/17 documented as of this encounter Additional Source Comments The information contained in this document represents components of the legal health record. It is not the complete legal health record.[facility]
--- OUTSIDE RECORDS SUMMARY | 2025-06-28 12:24 | XMS_ITS | Encounter Summary ---
Author Organization [facility] Address [address] [facility] [address] [place] [address] Phone Care Team Providers Care Women'S Activities Adviser Name Role Phone Elizabeth Moore MD Primary Care Provider Encounter Details Date Type Department Care Team (Latest Contact Info) Description 09/29/2018 Transcribe Orders [address] [address] Ruddy Oconnell MD [address] [address] Precordial pain (Primary Dx) Social History Tobacco [...] EST) SODIUM 139 133 - 146 mmol/L [facility] CHLORIDE 97 96 - 108 mmol/L [facility] POTASSIUM 5.3(H) 3.3 - 5.1 mmol/L [facility] CO2 33 21 - 35 mmol/L [facility] BUN 17 6 - 19 mg/dL [facility] CREATININE 0.50 0.5 - 1.5 mg/dL [facility] GLUCOSE 96 70 - 99 mg/dL [facility] CALCIUM 9.2 8.4 - 10.3 mg/dL [facility] EGFR 99 >59 mL/min/1.7 3m2 [facility] Comment:If patient is black, multiply result by 1.159. Estimated glomerular filtration rate calculated using the CKD-EPI equation. ANION GAP 14 10 - 20 mmol/L [facility] Blood 09/29/2018 10:3 7 AM EST 09/29/2018 12:31 PM EST Ruddy Oconnell MD LAB BLOOD BKR ORDERABLE S Final Result Performing Organization Address City/[facility]/ZIP Co de Phone Number [address] [address] * PT-INR (09/29/2018 10:37 AM EST) PT 10.6 10.2 - 12.9 sec [facility] INR 0.9 0.9 - 1.1 [facility] Comment:Therapeutic range fo r oral Vitamin K antagonists: 2.0-3.5 Blood 09/29/2018 10:3 7 AM EST 09/29/2018 12:31 PM EST Ruddy Oconnell MD LAB BLOOD BKR ORDERABLE S Final Result Performing Organization Address [facility] Co de Phone Number [address] [address] * CBC and differential (09/29/2018 10:37 AM EST) WBC 6.14 3.40 - 11.20 K/uL [facility] RBC 4.24 3.80 - 4.80 M/uL [facility] HGB 12.8 12.0 - 15.0 g/dL [facility] HCT 39.2 36.0 - 46.0 % [facility] PLT 238 130 - 400 K/uL [facility] MCV 92.5 79.0 - 98.0 fL [facility] MCH 30.2 27.0 - 34.8 pg [facility] MCHC 32.7 31.5 - 36.0 g/dL [facility] RDW 13.4 10.8 - 14.6 % [facility] MPV 11.0 9.4 - 12.4 fl [facility] NRBC 0.00 0.00 /100 WBCs [facility] ABSOLUTE NRBC 0.00 0.00 K/uL [facility] DIFF METHOD Auto [facility] NEUTS 55.1 45.30 - 77.70 % [facility] LYMPHS 32.2 12.30 - 39.70 % [facility] MONOS 7.3 4.10 - 12.80 % [facility] EOS 4.4 0 - 7.2 % [facility] BASOS 0.7 0 - 2.80 % [facility] Granulocytes, immature (%) 0.3 0.0 - 0.9 % [facility] ABSOLUTE NEUTS 3.38 1.40 - 7.70 K/uL [facility] ABSOLUTE LYMPHS 1.98 0.60 - 3.20 K/uL [facility] ABSOLUTE MONOS 0.45 0.11 - 0.59 K/uL [facility] ABSOLUTE EOS 0.27 0.01 - 0.50 K/uL [facility] ABSOLUTE BASOS 0.04 0.00 - 0.08 K/uL [facility] Granulocytes, immature 0.02 0.00 - 0.05 K/uL [facility] Blood 09/29/2018 10:3 7 AM EST 09/29/2018 12:31 PM EST Ruddy Oconnell MD LAB BLOOD BKR ORDERABLE S Final Result [facility] [address] [place] [address] documented in this encounter Visit Diagnoses Diagnosis Precordial pain- Primary documented in this encounter Care Teams Women'S Activities Adviser Relationship Specialty Start Date End Date Elizabeth Moore MD [facility] [address] [place] [address] PCP - General Internal Medicine 09/21/17 documented as of this encounter Additional Source Comments The information contained in this document represents components of the legal health record. It is not the complete legal health record.[facility]
--- OUTSIDE RECORDS SUMMARY | 2025-06-28 12:24 | XMS_ITS | Encounter Summary ---
Author Organization [facility] Address [address] [facility] [address] [place] [address] Phone Care Team Providers Care Pitching Coach Name Role Phone Elizabeth Moore MD Primary Care Provider Encounter Details Date Type Department Care Team ([facility] st Contact Info) Description 05/26/2020 Transcribe Orders [address] [address] Sd Holloway MD [address] [place] [address] Social History Tobacco Use Types Packs/Day Years [...] on filedocumented in this encounter Care Teams Pitching Coach Relationship Specialty Start Date End Date Elizabeth Moore MD [address] [facility] [address] [place] [address] PCP - General Internal Medicine 09/21/17 documented as of this encounter Additional Source Comments The information contained in this document represents components of the legal health record. It is not the complete legal health record.[facility]
--- OUTSIDE RECORDS SUMMARY | 2025-06-28 12:24 | XMS_ITS | Encounter Summary ---
Author Organization [facility] Address [address] [place] [address] Phone Care Team Providers Care Hearing Aid Assistant Name Role Phone Elizabeth Moore MD Primary Care Provider Reason for Referral * Physical Therapy (Within 3 days (urgent)) - Closed Specialty Diagnoses / Procedures Referred By Elena tan Referred To Contact Physical Therapy Diagnoses Encounter for rehabilitation System, Provider Not In, PhD [address] [address] Phone: tel: Referral ID Status Reason Start Date Expiration Date Visits Re quested Visits Authorized [id number] Closed 09/21/2017 08/21/2018 25 25 Encounter Details Date Type Department Care Team (Latest Contact Info) Description 09/21/2017 Transcribe Orders [facility] [address] [place] [address] Bill Brown PA [address] [address] Encounter for rehabilitation (Primary Dx) Social History [...] Schedule Ambulatory referral to [facility] Physical Therapy Outpatient Referral Routine Encounter for rehabilitation Ordered: 09/21/2017 documented as of this encounter Visit Diagnoses Diagnosis Encounter for rehabilitation- Primary documented in this encounter Care Teams Hearing Aid Assistant Relationship Specialty Start Date End Date Elizabeth Moore MD [address] [place] [phone] PCP - General Internal Medicine 09/21/17 documented as of this encounter Additional Source Comments The information contained in this document represents components of the legal health record. It is not the complete legal health record.[facility]
--- OUTSIDE RECORDS SUMMARY | 2025-06-28 12:24 | XMS_ITS | Encounter Summary ---
Author Organization [facility] Address [address] [facility] [address] [place] [address] Phone Care Team Providers Care International Manager Name Role Phone Elizabeth Moore MD Primary Care Provider Encounter Details Date Type Department Care Team (Late st Contact Info) Description 10/06/2022 Transcribe Orders [facility] [address] [address] Ruddy Oconnell MD [address] [address] Social History Tobacco Use Types Packs/Day Years [...] on filedocumented in this encounter Care Teams International Manager Relationship Specialty Start Date End Date Elizabeth Moore MD [address] [facility] [address] [place] [address] PCP - General Internal Medicine 09/21/17 documented as of this encounter Additional Source Comments The information contained in this document represents components of the legal health record. It is not the complete legal health record.[facility]
--- OUTSIDE RECORDS SUMMARY | 2025-06-28 12:24 | XMS_ITS | Encounter Summary ---
Author Organization [facility] Address [address] [place] [address] Phone Care Team Providers Care Metalizing Machine Operator Name Role Phone Elizabeth Moore MD Primary Care Provider Encounter Details Date Type Department Care Team (Latest Contact Info) Description 09/01/2018 Transcribe Orders [address] [address] Jorje La MD 5 [place] [address] Mood disorder (Primary Dx) Social History Tobacco [...] EST) WBC 5.67 3.40 - 11.20 K/uL [facility] RBC 4.57 3.80 - 4.80 M/uL [facility] HGB 13.6 12.0 - 15.0 g/dL [facility] HCT 42.2 36.0 - 46.0 % [facility] PLT 233 130 - 400 K/uL [facility] MCV 92.3 79.0 - 98.0 fL [facility] MCH 29.8 27.0 - 34.8 pg [facility] MCHC 32.2 31.5 - 36.0 g/dL [facility] RDW 13.5 10.8 - 14.6 % [facility] MPV 11.5 9.4 - 12.4 fl [facility] NRBC 0.00 0.00 /100 WBCs [facility] ABSOLUTE NRBC 0.00 0.00 K/uL [facility] Blood 09/01/2018 7:27 AM EST 09/01/2018 7:34 AM EST us Jorje La MD LAB BLOOD BKR ORDERABLES Final Result Performing Organization Address [facility] Co de Phone Number [address] [address] * (ABNORMAL) Valproic acid (09/01/2018 7:27 AM EST) VALPROIC ACID 38.2(L) 50.0 - 100.0 ug/mL [facility] Blood 09/01/2018 7:27 AM EST 09/01/2018 7:34 AM EST us Jorje La MD LAB BLOOD BKR ORDERABLES Final Result Performing Organization Address [facility] Co de Phone Number [address] [address] * (ABNORMAL) Hemoglobin A1c (09/01/2018 7:27 AM EST) HEMOGLOBIN A1C 6.0(H) 4.3 - 5.8 % [facility] Blood 09/01/2018 7:27 AM EST 09/01/2018 7:34 AM EST us Jorje La MD LAB BLOOD BKR ORDERABLES Final Result Performing Organization Address [facility] Co de Phone Number [address] [address] * (ABNORMAL) Comprehensive metabolic panel (09/01/2018 7:27 AM EST) SODIUM 141 133 - 146 mmol/L [facility] POTASSIUM 5.3(H) 3.3 - 5.1 mmol/L [facility] CHLORIDE 99 96 - 108 mmol/L [facility] CO2 29 21 - 35 mmol/L [facility] BUN 26(H) 6 - 19 mg/dL [facility] CREATININE 0.70 0.5 - 1.5 mg/dL [facility] GLUCOSE 90 70 - 99 mg/dL [facility] ALBUMIN 4.5 3.9 - 4.8 g/dL [facility] TOTAL PROTEIN 7.1 6.5 - 8.0 g/dL [facility] CALCIUM 10.0 8.4 - 10.3 mg/dL [facility] ALKALINE PHOSPHATASE 83 39 - 117 U/L [facility] TOTAL BILIRUBIN 0.2 0.0 - 1.2 mg/dL [facility] AST 21 0 - 37 U/L [facility] ALT 30 0 - 40 U/L [facility] GLOBULIN 2.6 1 - 4.8 g/dL [facility] EGFR 89 >59 mL/min/1.7 3m2 [facility] Comment:If patient is black, multiply result by 1.159. Estimated glomerular filtration rate calculated using the CKD-EPI equation. ANION GAP 18 10 - 20 mmol/L [facility] Blood 09/01/2018 7:27 AM EST 09/01/2018 7:34 AM EST Jorje La MD LAB BLOOD BKR ORDERABLES Final Result Performing Organization Address City/State/[facility] Co de Phone Number [address] [address] documented in this encounter Visit Diagnoses Diagnosis Mood disorder- Primary Unspecified episodic mood disorder documented in this encounter Care Teams Metalizing Machine Operator Relationship Specialty Start Date End Date Elizabeth Moore MD [address] [place] [address] PCP - General Internal Medicine 09/21/17 documented as of this encounter Additional Source Comments The information contained in this document represents components of the legal health record. It is not the complete legal health record.[facility]
--- OUTSIDE RECORDS SUMMARY | 2025-06-28 12:25 | XMS_ITS | Encounter Summary ---
Author Organization [facility] Address [facility] [address] [place] [address] Phone Care Team Providers Care Sleeve Setter Safety Stitch Name Role Phone Elizabeth Moore MD Primary Care Provider Encounter Details Date Type Department Care Team (Latest Contact Info) Description 01/02/2020 Transcribe Orders [address] [address] Jorje La MD [address] [place] [address] Bipolar affective disorder, remission status unspecified (Primary [...] EDT) LAMOTRIGINE 2.4(L) 4.0 - 18.0 mg/L [facility] Blood 01/02/2020 7:38 AM EDT 01/02/2020 8:57 AM EDT us Jorje La MD LAB BLOOD BKR ORDERABLES Final Result [facility] [address] [place] [address] * Vitamin B12 (01/02/2020 7:38 AM EDT) VITAMIN B12 525 232 - 1,245 pg/mL [facility] Blood 01/02/2020 7:38 AM EDT 01/02/2020 8:57 AM EDT us Jorje La MD LAB BLOOD BKR ORDERABLES Final Result Performing Organization Address City/[facility]/ZIP Co de Phone Number [address] [address] * URINALYSIS WITH SEDIMENT (01/02/2020 7:38 AM EDT) Pathologist [facility] WBC NONE SEEN NONE SEEN /hpf [facility] RBC NONE SEEN NONE SEEN /hpf [facility] URINE EPITHELIAL NONE SEEN NONE SEEN [facility] MUCUS NONE SEEN NONE SEEN /hpf [facility] BACTERIA NONE SEEN NONE SEEN /hpf [facility] COLOR Yellow Yellow [facility] CLARITY Clear [facility] GLUCOSE Negative Negative [facility] BILI Negative Negative [facility] KETONES Negative Negative [facility] SPECIFIC GRAVITY 1.015 1.005 - 1.030 [facility] BLOOD Negative Negative [facility] PH 6.0 5.0 - 8.0 [facility] Protein-UA Negative Negative [facility] NITRITE Negative Negative [facility] Leukocyte esterase, ur Negative Negative [facility] Urine (Urine) 01/02/2020 7:3 8 AM EDT 01/02/2020 8:58 AM EDT Jorje La MD LAB URINE ORDERABLES Fin al Result Performing Organization Address City/[facility] Co de Phone Number [address] [address] * TSH (01/02/2020 7:38 AM EDT) Pathologist [facility] TSH 1.86 0.27 - 4.20 uIU/mL [facility] Blood 01/02/2020 7:38 AM EDT 01/02/2020 8:57 AM EDT us Jorje La MD LAB BLOOD BKR ORDERABLES Final Result Performing Organization Address [facility] de Phone Number [address] [address] * (ABNORMAL) Hemoglobin A1c (01/02/2020 7:38 AM EDT) HEMOGLOBIN A1C 6.4(H) 4.3 - 5.8 % [facility] Blood 01/02/2020 7:38 AM EDT 01/02/2020 8:57 AM EDT us Jorje aL MD LAB BLOOD BKR ORDERABLES Final Result Performing Organization Address [facility] de Phone Number [address] [address] * Free T4 (01/02/2020 7:38 AM EDT) FREE T4 1.3 0.9 - 1.7 ng/dL [facility] Blood 01/02/2020 7:38 AM EDT 01/02/2020 8:57 AM EDT us Jorje La MD LAB BLOOD BKR ORDERABLES Final Result Performing Organization Address [facility] de Phone Number [address] [address] * (ABNORMAL) Folate (01/02/2020 7:38 AM EDT) FOLIC ACID >20.0(H) 4.2 - 19.9 ng/mL [facility] Blood 01/02/2020 7:38 AM EDT 01/02/2020 8:57 AM EDT us Jorje La MD LAB BLOOD BKR ORDERABLES Final Result [address] [address] * C-Reactive Protein (01/02/2020 7:38 AM EDT) C REACTIVE PROTEIN 0.5 0.0 - 4.0 mg/L [facility] Blood 01/02/2020 7:38 AM EDT 01/02/2020 8:57 AM EDT us Jorje La MD LAB BLOOD BKR ORDERABLES Final Result Performing Organization Address [facility]/ZIP Co de Phone Number [address] [address] * (ABNORMAL) Comprehensive metabolic panel (01/02/2020 7:38 AM EDT) Pathologist [facility] SODIUM 142 133 - 146 mmol/L [facility] POTASSIUM 4.6 3.3 - 5.1 mmol/L [facility] CHLORIDE 101 96 - 108 mmol/L [facility] CO2 28 21 - 35 mmol/L [facility] BUN 20(H) 6 - 19 mg/dL [facility] CREATININE 0.70 0.5 - 1.5 mg/dL [facility] GLUCOSE 116(H) 70 - 99 mg/dL [facility] ALBUMIN 4.8 3.9 - 4.8 g/dL [facility] TOTAL PROTEIN 7.6 6.5 - 8.0 g/dL [facility] CALCIUM 10.0 8.4 - 10.3 mg/dL [facility] ALKALINE PHOSPHATASE 83 39 - 117 U/L [facility] TOTAL BILIRUBIN 0.3 0.0 - 1.2 mg/dL [facility] AST 28 0 - 37 U/L [facility] ALT 28 0 - 40 U/L [facility] GLOBULIN 2.8 1 - 4.8 g/dL [facility] EGFR 88 >59 mL/min/1.7 3m2 [facility] Comment:If patient is black, multiply result by 1.159. Estimated glomerular filtration rate calculated using the CKD-EPI equation. ANION GAP 18 10 - 20 mmol/L [facility] Blood 01/02/2020 7:38 AM EDT 01/02/2020 8:57 AM EDT Jorje La MD LAB BLOOD BKR ORDERABLES Final Result [facility] [address] [place] [address] * CBC and differential (01/02/2020 7:38 AM EDT) WBC 6.42 4.00 - 11.00 K/uL [facility] Comment:Note Reference Range updates to all CBC and Differential results. RBC 4.57 3.72 - 5.30 M/uL [facility] HGB 13.7 11.4 - 15.9 g/dL [facility] Comment:Note updated Referen ce Ranges for all CBC and Differential results. HCT 41.3 34.2 - 46.8 % [facility] PLT 265 140 - 430 K/uL [facility] MCV 90.4 78.0 - 97.0 fL [facility] MCH 30.0 25.0 - 33.0 pg [facility] MCHC 33.2 32.0 - 36.0 g/dL [facility] RDW 14.0 11.0 - 16.0 % [facility] MPV 11.5 8.4 - 12.8 fl [facility] NRBC 0.00 0 /100 WBCs [facility] ABSOLUTE NRBC 0.00 0 K/uL [facility] DIFF METHOD Auto [facility] NEUTS 55.8 43.0 - 75.0 % [facility] LYMPHS 34.0 18.2 - 47.4 % [facility] MONOS 6.9 4.00 - 11.00 % [facility] EOS 2.2 0.0 - 8.0 % [facility] BASOS 0.6 0.0 - 2.0 % [facility] Granulocytes, immature (%) 0.5 0.0 - 0.9 % [facility] ABSOLUTE NEUTS 3.59 1.80 - 7.70 K/uL [facility] ABSOLUTE LYMPHS 2.18 1.00 - 3.10 K/uL [facility] ABSOLUTE MONOS 0.44 0.20 - 0.80 K/uL [facility] ABSOLUTE EOS 0.14 0.00 - 0.80 K/uL [facility] ABSOLUTE BASOS 0.04 0.00 - 0.09 K/uL [facility] Granulocytes, immature 0.03 0.00 - 0.05 K/uL [facility] Blood 01/02/2020 7:38 AM EDT 01/02/2020 8:57 AM EDT us Jorje La MD LAB BLOOD BKR ORDERABLES Final Result Performing Organization Address City/State/[facility] Co de Phone Number [address] [address] documented in this encounter Visit Diagnoses Diagnosis Bipolar affective disorder, remission status unspecified- Primary Medication monitoring encounter Encounter for therapeutic drug monitoring Impaired fasting glucose Impaired fasting glucose documented in this encounter Care Teams Sleeve Setter Safety Stitch Relationship Specialty Start Date End Date Elizabeth Moore MD [address] [place] [phone] PCP - General Internal Medicine 09/21/17 documented as of this encounter Additional Source Comments The information contained in this document represents components of the legal health record. It is not the complete legal health record.[facility]
--- OUTSIDE RECORDS SUMMARY | 2025-06-28 12:25 | XMS_ITS | Encounter Summary ---
Author Organization [facility] Address [address] [place] [address] Phone Care Team Providers Care Boat Hop Name Role Phone Elizabeth Moore MD Primary Care Provider Encounter Details Date Type Department Care Team (Latest Contact Info) Description 05/11/2019 Transcribe Orders [address] [address] Jorje La MD [address] [place] [address] Bipolar affective disorder, remission status unspecified (Primary [...] EDT) WBC 4.68 3.40 - 11.20 K/uL [facility] RBC 4.39 3.80 - 4.80 M/uL [facility] HGB 13.5 12.0 - 15.0 g/dL [facility] HCT 41.0 36.0 - 46.0 % [facility] PLT 204 130 - 400 K/uL [facility] MCV 93.4 79.0 - 98.0 fL [facility] MCH 30.8 27.0 - 34.8 pg [facility] MCHC 32.9 31.5 - 36.0 g/dL [facility] RDW 13.5 10.8 - 14.6 % [facility] MPV 11.9 9.4 - 12.4 [facility] NRBC 0.00 0.00 /100 WBCs [facility] ABSOLUTE NRBC 0.00 0.00 K/uL [facility] DIFF METHOD Auto [facility] NEUTS 54.8 45.30 - 77.70 % [facility] LYMPHS 33.5 12.30 - 39.70 % [facility] MONOS 7.9 4.10 - 12.80 % [facility] EOS 3.0 0 - 7.2 % [facility] BASOS 0.6 0 - 2.80 % [facility] Granulocytes, immature (%) 0.2 0.0 - 0.9 % [facility] ABSOLUTE NEUTS 2.56 1.40 - 7.70 K/uL [facility] ABSOLUTE LYMPHS 1.57 0.60 - 3.20 K/uL [facility] ABSOLUTE MONOS 0.37 0.11 - 0.59 K/uL [facility] ABSOLUTE EOS 0.14 0.01 - 0.50 K/uL [facility] ABSOLUTE BASOS 0.03 0.00 - 0.08 K/uL [facility] Granulocytes, immature 0.01 0.00 - 0.05 K/uL [facility] Blood 05/11/2019 7:44 AM EDT 05/11/2019 7:48 AM EDT us Jorje La MD LAB BLOOD BKR ORDERABLES Final Result [facility] [address] [place] [address] * (ABNORMAL) Valproic acid (05/11/2019 7:44 AM EDT) VALPROIC ACID 35.2(L) 50.0 - 100.0 ug/mL [facility] Blood 05/11/2019 7:44 AM EDT 05/11/2019 7:48 AM EDT us Jorje La MD LAB BLOOD BKR ORDERABLES Final Result [address] [address] * (ABNORMAL) Comprehensive metabolic panel (05/11/2019 7:44 AM EDT) SODIUM 141 133 - 146 mmol/L [facility] POTASSIUM 4.4 3.3 - 5.1 mmol/L [facility] CHLORIDE 99 96 - 108 mmol/L [facility] CO2 32 21 - 35 mmol/L [facility] BUN 16 6 - 19 mg/dL [facility] CREATININE 0.60 0.5 - 1.5 mg/dL [facility] GLUCOSE 104(H) 70 - 99 mg/dL [facility] ALBUMIN 4.3 3.9 - 4.8 g/dL [facility] TOTAL PROTEIN 6.9 6.5 - 8.0 g/dL [facility] CALCIUM 9.3 8.4 - 10.3 mg/dL [facility] ALKALINE PHOSPHATASE 80 39 - 117 U/L [facility] TOTAL BILIRUBIN 0.3 0.0 - 1.2 mg/dL [facility] AST 22 0 - 37 U/L [facility] ALT 24 0 - 40 U/L [facility] GLOBULIN 2.6 1 - 4.8 g/dL [facility] EGFR 93 >59 mL/min/1.7 3m2 [facility] Comment:If patient is black, multiply result by 1.159. Estimated glomerular filtration rate calculated using the CKD-EPI equation. ANION GAP 14 10 - 20 mmol/L [facility] Blood 05/11/2019 7:44 AM EDT 05/11/2019 7:48 AM EDT us Jorje La MD LAB BLOOD BKR ORDERABLES Final Result Performing Organization Address City/[facility]/ZIP Co de Phone Number [address] [address] documented in this encounter Visit Diagnoses Diagnosis Bipolar affective disorder, remission status unspecified- Primary documented in this encounter Care Teams Boat Hop Relationship Specialty Start Date End Date Elziabeth Moore MD [facility] [address] [address] PCP - General Internal Medicine 09/21/17 documented as of this encounter Additional Source Comments The information contained in this document represents components of the legal health record. It is not the complete legal health record.[facility]
--- OUTSIDE RECORDS SUMMARY | 2025-06-28 12:25 | XMS_ITS | Encounter Summary ---
Author Organization [facility] Address [address] [facility] [address] [place] [address] Phone Care Team Providers Care Drapery Estimator Name Role Phone Elizabeth Moore MD Primary Care Provider Encounter Details Date Type Department Care Team (Latest Contact Info) Description 09/24/2019 Transcribe Orders [address] [address] Elizabeth Moore MD [address] [facility] [address] [place] [address] Essential hypertension, malignant (Primary Dx); Atherosclerosis of [place] coronary artery, angina presence unspecified, unspecified whether [place] or transplanted heart; Pure hypercholesterolemia; Avitaminosis D [...] D (TOTAL) 41 30 - 60 ng/mL [facility] Blood 09/24/2019 7:42 AM EST 09/24/2019 8:51 AM EST us Elizabeth Moore MD LAB BLOOD BKR ORDERABL ES Final Result Performing Organization Address City/[facility]/ZIP Co de Phone Number [address] [address] * TSH (09/24/2019 7:42 AM EST) TSH 1.50 0.27 - 4.20 uIU/mL [facility] Blood 09/24/2019 7:42 AM EST 09/24/2019 8:51 AM EST Elizabeth Moore MD LAB BLOOD BKR ORDERABL ES Final Result Performing Organization Address [facility] Co de Phone Number [address] [address] * Free T4 (09/24/2019 7:42 AM EST) Pathologist [facility] FREE T4 1.3 0.9 - 1.7 ng/dL [facility] Blood 09/24/2019 7:42 AM EST 09/24/2019 8:51 AM EST Elizabeth Moore MD LAB BLOOD BKR ORDERABL ES Final Result Performing Organization Address [facility] Co de Phone Number [address] [address] * CBC and differential (09/24/2019 7:42 AM EST) WBC 5.89 4.00 - 11.00 K/uL [facility] Comment:Note Reference Range updates to all CBC and Differential results. RBC 4.28 3.72 - 5.30 M/uL [facility] HGB 13.2 11.4 - 15.9 g/dL [facility] Comment:Note updated Referen ce Ranges for all CBC and Differential results. HCT 39.0 34.2 - 46.8 % [facility] PLT 232 140 - 430 K/uL [facility] MCV 91.1 78.0 - 97.0 fL [facility] MCH 30.8 25.0 - 33.0 pg [facility] MCHC 33.8 32.0 - 36.0 g/dL [facility] RDW 14.1 11.0 - 16.0 % [facility] MPV 12.2 8.4 - 12.8 fl [facility] NRBC 0.00 0 /100 WBCs [facility] ABSOLUTE NRBC 0.00 0 K/uL [facility] DIFF METHOD Auto [facility] NEUTS 59.0 43.0 - 75.0 % [facility] LYMPHS 29.2 18.2 - 47.4 % [facility] MONOS 7.1 4.00 - 11.00 % [facility] EOS 3.9 0.0 - 8.0 % [facility] BASOS 0.5 0.0 - 2.0 % [facility] Granulocytes, immature (%) 0.3 0.0 - 0.9 % [facility] ABSOLUTE NEUTS 3.47 1.80 - 7.70 K/uL [facility] ABSOLUTE LYMPHS 1.72 1.00 - 3.10 K/uL [facility] ABSOLUTE MONOS 0.42 0.20 - 0.80 K/uL [facility] ABSOLUTE EOS 0.23 0.00 - 0.80 K/uL [facility] ABSOLUTE BASOS 0.03 0.00 - 0.09 K/uL [facility] Granulocytes, immature 0.02 0.00 - 0.05 K/uL [facility] Blood 09/24/2019 7:42 AM EST 09/24/2019 8:51 AM EST us Elizabeth Moore MD LAB BLOOD BKR ORDERABL ES Final Result [facility] [address] [place] [address] * (ABNORMAL) Lipid panel (09/24/2019 7:42 AM EST) HDL 48 mg/dL [facility] Comment: Interpretation <40 mg/dL: Low HDL cholesterol (major risk factor for CHD) Greater than or equal to 60 mg/dL: High HDL cholesterol ( negative risk factor for CHD) HDL - cholesterol is affected by a number of factors, e.g. smoking, excerise, hormones, sex and age. CHOLESTEROL 159 0 - 240 mg/dL [facility] TRIGLYCERIDES 174(H) 30 - 160 mg/dL [facility] LDL 76 50 - 129 mg/dL [facility] Comment: LDL levels in terms of risk for coronary heart disease: <100 mg/dL: Optimal 100-129 mg/dL: Near or above optimal 130-159 mg/dL: Borderline high 160-189 mg/dL: High >190 mg/dL: Very High CARDIAC RISK RATIO 3.3 3.3 - 4.4 C [facility] Blood 09/24/2019 7:42 AM EST 09/24/2019 8:51 AM EST us Elizabeth Moore MD LAB BLOOD BKR ORDERABL ES Final Result Performing Organization Address City/State/[facility] Co de Phone Number [address] [address] * (ABNORMAL) Comprehensive metabolic panel (09/24/2019 7:42 AM EST) SODIUM 142 133 - 146 mmol/L [facility] POTASSIUM 5.1 3.3 - 5.1 mmol/L [facility] CHLORIDE 101 96 - 108 mmol/L [facility] CO2 26 21 - 35 mmol/L [facility] BUN 18 6 - 19 mg/dL [facility] CREATININE 0.70 0.5 - 1.5 mg/dL [facility] GLUCOSE 108(H) 70 - 99 mg/dL [facility] ALBUMIN 4.4 3.9 - 4.8 g/dL [facility] TOTAL PROTEIN 6.9 6.5 - 8.0 g/dL [facility] CALCIUM 9.5 8.4 - 10.3 mg/dL [facility] ALKALINE PHOSPHATASE 89 39 - 117 U/L [facility] TOTAL BILIRUBIN 0.3 0.0 - 1.2 mg/dL [facility] AST 29 0 - 37 U/L [facility] ALT 28 0 - 40 U/L [facility] GLOBULIN 2.5 1 - 4.8 g/dL [facility] EGFR 88 >59 mL/min/1.7 3m2 [facility] Comment:If patient is black, multiply result by 1.159. Estimated glomerular filtration rate calculated using the CKD-EPI equation. ANION GAP 20 10 - 20 mmol/L [facility] Blood 09/24/2019 7:42 AM EST 09/24/2019 8:51 AM EST us Elizabeth Moore MD LAB BLOOD BKR ORDERABL ES Final Result [facility] [address] [place] [address] documented in this encounter Visit Diagnoses Diagnosis Essential hypertension, malignant- Primary Atherosclerosis of [place] coronary artery, angina presence unspecified, unspecified whether [place] or transplanted heart Pure hypercholesterolemia Avitaminosis D Unspecified vitamin D deficiency documented in this encounter Care Teams Drapery Estimator Relationship Specialty Start Date End Date Elizabeth Moore MD [facility] [address] [address] PCP - General Internal Medicine 09/21/17 documented as of this encounter Additional Source Comments The information contained in this document represents components of the legal health record. It is not the complete legal health record.[facility]
--- OUTSIDE RECORDS SUMMARY | 2025-06-28 12:25 | XMS_ITS | Clinical Summary ---
Author Organization [facility] Address [address] [place] [address] Phone Care Team Providers Care Waiter/Waitress Economy Class Name Role Phone Elizabeth Moore MD Primary [...] 8 HOURS NEEDED FOR PAIN 1 Active [id number] b-C 100-7.5-2.691 gram PwPk Active Active Problems [...] a Fatigue, unspecified type COMPREHENSIVE METABOLIC PANEL (CMP) Routine 08/21/2024 8:00 AM EST Hypertension, unspecified type Pure hypercholesterolemi a Fatigue, unspecified type from Last 3 Months or Most Recently Relevant to Health Maintenance Results * (ABNORMAL) Comprehensive metabolic panel (08/21/2024 8:00 AM EST) SODIUM 141 133 - 146 mmol/L [facility] POTASSIUM 4.9 3.3 - 5.1 mmol/L [facility] CHLORIDE 102 96 - 108 mmol/L [facility] CO2 28 21 - 35 mmol/L [facility] BUN 17 6 - 19 mg/dL [facility] CREATININE 0.70 0.5 - 1.5 mg/dL [facility] GLUCOSE 125(H) 70 - 99 mg/dL [facility] ALBUMIN 4.5 3.9 - 4.8 g/dL [facility] TOTAL PROTEIN 7.1 6.5 - 8.0 g/dL [facility] CALCIUM 9.5 8.4 - 10.3 mg/dL [facility] ALKALINE PHOSPHATASE 112 39 - 117 U/L [facility] TOTAL BILIRUBIN 0.4 0.0 - 1.2 mg/dL [facility] AST 27 0 - 37 U/L [facility] ALT 50(H) 0 - 40 U/L [facility] GLOBULIN 2.6 1 - 4.8 g/dL [facility] EGFR 91 >59 mL/min/1.7 3m2 [facility] Comment:Estimated glomerular filtration rate calculated using the CKD-EPI refit equation. ANION GAP 16 10 - 20 mmol/L [facility] Blood 08/21/2024 8:00 AM EST 08/21/2024 8:03 AM EST us Elizabeth Moore MD LAB BLOOD BKR ORDERABL ES Final Result [facility] [address] [place] [address] * (ABNORMAL) Lipid panel (08/21/2024 8:00 AM EST) HDL 57 mg/dL [facility] Comment: Interpretation <40 mg/dL: Low HDL cholesterol (major risk factor for CHD) Greater than or equal to 60 mg/dL: High HDL cholesterol ( negative risk factor for CHD) HDL - cholesterol is affected by a number of factors, e.g. smoking, excerise, hormones, sex and age. CHOLESTEROL 163 0 - 240 mg/dL [facility] TRIGLYCERIDES 212(H) 30 - 160 mg/dL [facility] LDL 64 50 - 129 mg/dL [facility] Comment: LDL levels in terms of risk for coronary heart disease: <100 mg/dL: Optimal 100-129 mg/dL: Near or above optimal 130-159 mg/dL: Borderline high 160-189 mg/dL: High >190 mg/dL: Very High CARDIAC RISK RATIO 2.9(L) 3.3 - 4.4 [facility] Blood 08/21/2024 8:00 AM EST 08/21/2024 8:03 AM EST us Elizabeth Moore MD LAB BLOOD BKR ORDERABL ES Final Result [facility] [address] [place] [address] from Last 3 Months or Most Recently Relevant to Health Maintenance Insurance MEDICARE PART A & B MEDICARE SUPPLEMENT MEDICARE PART A & B Member Subscriber Plan / Payer ( fective 2015-Present) Name:Ximena Larkin Member ID:[id number] Relation to Subscriber:Self Name:Ximena Larkin Subscriber ID:[id number] Payer ID:[id number] Group ID:Not on file Type:Medicare Address: [employer] [address] MEDICARE SUPPLEMENT MEDICARE PART A & B Member Subscriber Plan / Payer ( fective 2015-Present) Name:Ximena Larkin Member ID:[id number] Relation to Subscriber:Self Name:Ximena Larkin Subscriber ID:[id number] Payer ID:[id number] Group ID:Not on file Type:Medicare Address: [employer] [address] MEDICARE SUPPLEMENT MEDICARE PART A & B MEDICARE SUPPLEMENT MEDICARE PART A & B MEDICARE SUPPLEMENT MEDICARE PART A & B MEDICARE SUPPLEMENT MEDICARE PART A & B MEDICARE SUPPLEMENT MEDICARE PART A & B MEDICARE SUPPLEMENT MEDICARE PART A & B [facility] MEDICARE SUPPLEMENT [facility] Care Teams Waiter/Waitress Economy Class Relationship Specialty Start Date End Date Elizabeth Moore MD [address] [place] [address] [address] [place] [address] PCP - General Internal Medicine 09/21/17 Additional Source Comments The information contained in this document represents components of the legal health record. It is not the complete legal health record.[facility]
--- NOTE | 2025-06-28 15:35 | A.OFFPSYCH_ITS ---
Intake Intake Visit Reasons: depression Allergies sulfamethoxazole (From Bactrim) Allergy (Mild, Verified 04/25/25 11:09) Rash trimethoprim (From Bactrim) Allergy (Mild, Verified 04/25/25 11:09) Rash Medication List - Last Reconciled 06/28/25 by Jorje La MD aspirin 81 mg PO DAILY atenolol 100 mg (2 x 50 mg) PO DAILY 90 days atorvastatin 80 mg PO DAILY buspirone 15 mg PO BID 90 days cholecalciferol (vitamin D3) 50 mcg PO DAILY diazepam 2 - 4 mg (1 - 2 x 2 mg) PO DAILY PRN ezetimibe 10 mg PO DAILY gabapentin 100 - 300 mg (1 - 3 x 100 mg) PO BEDTIME 30 days losartan 50 mg PO DAILY mecobalamin (vitamin B12) 2,000 mcg PO DAILY mirtazapine 45 mg PO BEDTIME multivitamin 1 tab PO DAILY nitroglycerin 0.4 mg sublingual Q5M PRN omeprazole 40 mg PO BID oxycodone-acetaminophen 5-325 mg 1 tab PO QID PRN trospium 20 mg PO ONCE HPI- Psychiatric Chief Complaint: depression Intake Note: The patient HPI Narrative: seen psychiatric follow-up with her . Patient consents to the use of doximity scribe Patient is a 75-year-old female with a history of chronic d ysphoria, anxiety, interpersonal sensitivity particularly with her daughter and dealing with a chronic pain syndrome in relationship to spinal disease that markedly effects her life. Patient has been on mirtazapine 45 mg at bedtime she is prescribed oxycodone up to 10 mg t.i.d. but generally takes less than this gabapentin at HS for help with sleep and neuropathy. Patient continues to be quite upset regarding how she was treated and evaluated in the emergency room better month ago. She feels the note from the emergency room was misrepresented. Patient sees Dr. lehmanfor primary care. The patient has been depressed and irritable particularly over the past couple weeks in relationship to an ongoing difficult relationship that she has with her oldest daughter in [place] who can be quite sadistic and cool to her. Patient does have regular psychotherapy. She is quite despondent about her chronic pain condition. She has not seen a paintless dent repair technician in number of years has been hopeless helpless regarding their ability to help her her pain is manage the medication with Dr. Lundberg Past Psychiatric History: hx hospitalization recurrent depression anxiety hx hospitalization and tms Mental Status Exam Mental Status Exam Narrative: Patient casually dressed cooperative with good eye contact. Her speech is clear goal-directed logical. She is ruminating and content focused on chronic pain relationship with her daughter. No hallucinations or delusional material no active psychosis she has generally future oriented. 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 Assessment and Plan Assessment & Plan (1) Generalized anxiety disorder: Status: Acute Code(s): F41.1 - Generalized anxiety disorder (2) Dysthymia: Status: Acute Code(s): F34.1 - Dysthymic disorder (3) Chronic back pain greater than 3 months duration: Status: Acute Code(s): M54.9 - Dorsalgia, unspecified; G89.29 - Other chronic pain Plan Patient agreeable to pain management referral to see if there any procedures or other techniques that might be helpful. She does have a spinal stimulator which appears unfortunately not to have modified her pain syndrome. CT scan from 2021 reviewed and lumbosacral spine films also reviewed with patient from ER visit in May. Referral to pain management. We will consider Lamictal or Cymbalta to see if helpful for chronic pains and question neuropathic pain. Patient can not take higher dose of gabapentin becomes too sedated and has gait disturbance. At present continue mirtazapine Patient aware of fall risk with medication Orders: Referrals Pain Management Referral F34.1 - Dysthymic disorder, G62.9 - Polyneuropathy, unspecified, Z96.89 - Presence of other specified functional implants, Z98.890 - Other specified postprocedural states Counseling and coordination of Care Details-Self Mgmt counseling: Issues related to management and living with chronic pain. Issues related to dealing with chronic problematic relationship with her oldest daughter. Diagnosis and Prognosis Counseling: Impact of diagnosis on life functions and Adequacy of current interventions Details: I spent [40] minutes reviewing the record, seeing the patient and documenting in the medical record. Counseling provided to the patient/caregiver as outlined below. Addressed patient/caregiver concerns regarding current medication regime including effective adherence. Addressed patient/caregiver concerns regarding diagnosis and prognosis including accuracy of diagnosis, prognosis over time, impact of diagnosis. Addressed patient/caregiver concerns regarding impact of recent stressors. [facility] Medical History Generalized anxiety disorder Depression, major, severe recurrence Other and unspecified hyperlipidemia Essential hypertension Atherosclerotic cardiovascular disease Surgical History Status post laminectomy S/P lumbar fusion S/P insertion of spinal cord stimulator (~11/2021) History of cardiac catheterization Family History Father No problems noted. Mother No problems noted. 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 Patient has had some degree of chronic interpersonal discord and reactivity chronic self-esteem issues Substance History: None Trauma History: neg Coding Level of Care Code Est Pt Level 3 (45753) Therapy 30m w/E&M (97142) Diagnoses Generalized anxiety disorder F41.1 Dysthymia F34.1 Chronic back pain greater than 3 months duration M54.9; G89.29
== END 2025-06-28 11:18 | disposition home or self-care (01) ==
LOC: HO.HOP 10:31
PROVIDERS: PCP Internal Medicine; Visit Provider Psychiatry & Neurology Psychiatry
DX: F41.1 Generalized anxiety disorder (principal); F34.1 Dysthymic disorder; M54.9 Dorsalgia, unspecified; G89.29 Other chronic pain
CPT/HCPCS: 90833; 99213

== ENCOUNTER → 2025-06-28 10:31 | Outpatient (BNVA) | payer MEDICARE, OTHER, SELFPAY | PROVIDERS: PCP Internal Medicine; Visit Provider Psychiatry & Neurology Psychiatry | DX: F41.1 Generalized anxiety disorder (principal); F34.1 Dysthymic disorder; M54.9 Dorsalgia, unspecified; G89.29 Other chronic pain; Z98.1 Arthrodesis status; Z96.82 Presence of neurostimulator; Z79.899 Other long term (current) drug therapy | CPT/HCPCS: 99212 ==